=== PATIENT | male | born 1940 | race Caucasian/White ===

== ENCOUNTER 2019-09-24 16:15 | Inpatient (IN) ==
--- NOTE | 2019-09-24 16:36 | Emergency Department Note ---
History of Present Illness General Chief Complaint: Abdominal Pain Stated Complaint: ABD DISCOMFORT - BLOATING Time Seen by Provider: 09/24/19 16:22 History of Present Illness Provider Complaint: abdominal pain Onset (ago): 6 day(s) Pain Consistency: intermittent Location: diffuse Radiation: none Severity: moderate Maximum Pain Intensity: 6 Current Pain Intensity: 6 Quality: + aching and + fullness Relieved By: + nothing Exacerbated By: + eating Associated Symptoms: + nausea, + vomiting, + constipation (And decreased flatulence) and + anorexia; no fever, no dysuria, no hematemesis, no hematochezia, no melena, no hematuria, no chest pain and no breathing difficulty Home Medications Home Medications Medication Instructions Recorded Confirmed Type lisinopril 40 mg PO DAILY 09/24/19 09/24/19 History Allergies Allergy/AdvReac Type Severity Reaction Status Date / Time ibuprofen [From Motrin] Allergy Unknown Hives Verified 09/24/19 18:24 Past Med/Surg History Medical History Hypertension Surgical History No pertinent past surgical history Social History Feels Safe at Home: Yes Smoking Status: Never smoker Hx Alcohol Use: Yes Alcohol type: beer Alcohol type Comment: 4 beers Alcohol Intake Frequency: Daily Review of Systems A total of 10 systems reviewed and were otherwise negative Physical Exam Vital Signs: Vital Signs - 24 hr 09/24/19 16:20 09/24/19 18:13 Temperature 36.4 C L Temperature Source Oral Pulse Rate 75 Pulse Rate [Right Finger] 90 Pulse Rhythm Regular Pulse Strength Normal Respiratory Rate 20 20 Respiratory Effort / Characteristics Non-Labored Sponta neous Respiratory Depth Normal Blood Pressure 143/89 H Blood Pressure [Le ft Arm] 120/66 Blood Pressure Nikki n 107 Blood Pressure Nikki n [Left Arm] 84 Blood Pressure Pos ition Sitting Blood Pressure Pos ition [Left Arm] Sitting Pulse Oximetry 98 90 Oxygen Delivery Me thod Room Air Room Air Sepsis Recent Feve r Within 48 Hours No Sepsis New/Unexpla ined Change in Men holli Status No Sepsis Action Take n by Nursing No Action Required Physical Exam: Physical Exam GENERAL: He is oriented to person, place, and time. He appears well-developed and well-nourished. He does not appear distressed. HENT: Exam performed. - Head: Normocephalic and atraumatic. - Right Ear: External ear normal. No mastoid tenderness. - Left Ear: External ear normal. No mastoid tenderness. - Mouth/Throat: The oropharynx is clear and moist. No trismus in the jaw. No dental abscesses or uvula swelling. No oropharyngeal exudate or tonsillar abscesses. EYES: Conjunctivae and EOM are normal. Pupils are equal, round, and reactive to light. Right eye exhibits no discharge. Left eye exhibits no discharge. No scleral icterus. NECK: Normal range of motion. Neck supple. No JVD present. No spinous process tenderness present. No carotid bruit present. No rigidity. No tracheal deviation and normal range of motion present. No Brudzinski's sign and no Kernig's sign noted. CV: Normal rate, regular rhythm, normal heart sounds and intact distal pulses. There is no peripheral edema. Palpable radial pulses bue. PULM/CHEST: Effort normal and breath sounds normal. No respiratory distress. No stridor. He has no wheezes. He has no rales. - Chest Wall: He exhibits no tenderness. ABD: Abdomen distended diffuse tenderness to palpation. There is no rebound, no guarding, no Roldan's sign and no tenderness at McBurney's point. Rovsig neg ative. MUSC/SKEL: Normal range of motion. There is no peripheral edema, tenderness or deformity. LYMPH: No cervical adenopathy. NEURO: He is alert and oriented to person, place, and time. He has normal strength. No cranial nerve deficit or sensory deficit. Coordination and gait normal. GCS eye subscore is 4. GCS verbal subscore is 5. GCS motor subscore is 6. Cerebellar tests wnl. SKIN: Skin is warm and dry. He is not diaphoretic. PSYCH: He has a normal mood and affect. Behavior is normal. Judgment and thought content normal. Course Course 1630: The patient was evaluated in room A10. A complete history and physical ex am was performed. 0: Patient's creatinine is 2.1. CT switched to CT with oral contrast only. Labs show leukocytosis of 12.73. [employer] [facility] was able to obtain lab results from [facility]. Patient had blood work on March 02, 2019 which showed a creatinine of 0.9. The patient reports no history of kidney problems. 1815: Nursing staff states the patient is not able to tolerate the oral contrast and keeps vomiting. He will be sent over to CT scan to rule out small bowel obstruction at this time. 185: CT shows high-grade small bowel obstruction. General surgery and [facility] hospitalist team consulted. 5: Iwona ESQUIVEL states admit to Dr. Burgos. Discussed with Dr. parekh who requested the patient be admitted to medicine primarily and he be on consult. He recommends NG tube at this point of time. Administered Medications Discontinued Medications Ondansetron HCl (Zofran) Confirm Administered Dose 4 mg .ROUTE .ST-MED ONE Stop: 09/24/19 18:22 Last Admin: 09/24/19 18:22 Dose: 4 mg Documented by: [id number] Ondansetron HCl (Zofran) 4 mg IV NOW STA Stop: 09/24/19 19:08 Last Admin: 09/24/19 19:08 Dose: Not Given Documented by: [id number] Medical Decision Making Laboratory Data Result diagrams: 09/24/19 16:40 09/24/19 16:40 Lab Results 09/24/19 09/24/19 Range/Units 16:40 16:40 WBC 12.73 H (4.8-10.8) K/uL RBC 5.18 (4.7-6.1) M/uL Hgb 17.1 (14.0-18.0) g/dL Hct 49.3 (42-52) % MCV 95.2 (80-100) fL MCH 33.0 (25-34) pg MCHC 34.7 (32-36) g/dL RDW Std Deviation 45.8 (36.4-46.3) fL RDW Coeff of Kathy 13.2 (11.5-14.5) % Plt Count 368 (130-400) K/uL MPV 10.2 (7.4-10.4) fL Immature Gran % (Auto) 2.0 % Neut % (Auto) 66.6 % Lymph % (Auto) 17.2 % [place] % (Auto) 13.4 % Eos % (Auto) 0.3 % Baso % (Auto) 0.5 % Immature Gran # (Auto) 0.26 H (0.00-0.02) K/uL Neut # (Auto) 8.47 H (1.4-6.5) K/uL Lymph # (Auto) 2.19 (1.2-3.4) K/uL [place] # (Auto) 1.70 H (0.11-0.59) K/uL Eos # (Auto) 0.04 (0-0.5) K/uL Baso # (Auto) 0.07 (0-0.2) K/uL Sodium 130 L (136-145) mmol/L Potassium 3.4 L (3.5-5.1) mmol/L Chloride 90 L (98-107) mmol/L Carbon Dioxide 33 H (21-32) mmol/L Anion Gap 7.0 (3-11) BUN 47 H (7-18) mg/dl Creatinine 2.10 H (0.6-1.4) mg/dl Est Cr Clr Drug Dosing 31.3 ml/min Est GFR ( Amer) 33.7 Est GFR (Non-Af Amer) 29.1 BUN/Creatinine Ratio 22.6 H (10-20) Glucose 163 H (70-99) mg/dl Calcium 10.0 (8.5-10.1) mg/dl Total Bilirubin 0.6 (0.2-1) mg/dl Direct Bilirubin 0.2 (0-0.2) mg/dl AST 17 (15-37) U/L ALT 39 (12-78) U/L Alkaline Phosphatase 58 (45-117) U/L Total Protein 8.6 H (6.4-8.2) gm/dl Albumin 3.4 (3.4-5.0) gm/dl Lipase 244 (73-393) U/L Imaging Data Radiologist's Impression: CT abd pelvis oral con only CLINICAL HISTORY: Abdominal distention, generalized abdominal pain. COMPARISON STUDY: No previous studies for comparison. FINDINGS: Patient was scanned following administration of dilute oral contrast. The patient was unable to tolerate the contrast and vomited. Visualized portions lung bases reveal borderline enlarged mediastinal lymph nodes. There are basilar opacities, statistically atelectatic. No hepatic masses are visualized in this noncontrast study. No gallbladder abnormalities are visualized. No splenic abnormalities are visualized. No pancreatic abnormalities are identified. Neither adrenal gland is pathologically enlarged. No renal, ureteral, or bladder calculi are visualized. There is a right renal cyst. There are fluid-filled dilated small bowel loops with multiple air-fluid levels. The colon is of normal caliber. The distal small bowel is of normal caliber. There is a pelvic transition zone. The findings are indicative of a small bowel obstruction. There are scattered colonic diverticula present. There is no evidence of acute diverticulitis. There is no evidence of acute appendicitis. There is no evidence of abdominal aortic dilatation. There is no free air. There is no ascites. There is no pneumatosis. There is no portal venous gas. Mild bladder wall thickening is felt to be secondary to a contracted bladder. There is no pathologic adenopathy. No destructive skeletal lesions are visualized. IMPRESSION: 1. CT findings indicative of a high-grade small bowel obstruction. 2. No evidence of free air. No evidence of pneumatosis. No evidence of portal venous gas. ACT 112: Negative or not required by law. Electronically signed by: Shane Hogan M.D. 09/24/2019 6:42 PM Dictated: 09/24/[id number] Transcribed: 09/24/[id number] [facility] Narrative 1630: The patient was evaluated in room A10. A complete history and physical exam was performed. 1730: Patient's creatinine is 2.1. CT switched to CT with oral contrast only. Labs show leukocytosis of 12.73. [employer] [facility] was able to obtain lab results from [employer]. Patient had blood work on March 02, 2019 which showed a creatinine of 0.9. The patient reports no history of kidney problems. 1815: Nursing staff states the patient is not able to tolerate the oral contrast and keeps vomiting. He will be sent over to CT scan to rule out small bowel obstruction at this time. 1856: CT shows high-grade small bowel obstruction. General surgery and [facility] hospitalist team consulted. 1915: Iwona ESQUIVEL states admit to Dr. Burgos. Discussed with Dr. parekh who requested the patient be admitted to medicine primarily and he be on consult. He recommends NG tube at this point of time. Impression & Plan Small bowel obstruction, MG (acute kidney injury) Discharge Plan Visit Data Chief Complaint: Abdominal Pain Stated Complaint: ABD DISCOMFORT - BLOATING ED Provider: Tim Elizabeth Discharge Problem: Small bowel obstruction, MG (acute kidney injury) Patient Disposition: Admitted As Inpatient Forms Stand Alone Forms: My [facility] Prescriptions Prescriptions: No Action lisinopril 40 mg tablet 40 mg PO DAILY RF: 0 Referrals Referrals: Trev Navarro MD [Primary Care Provider] -
[2019-09-24 16:56] LABS: Hematocrit (blood only) 49.3 % (42-52); Hemoglobin 17.1 g/dL (14.0-18.0); Mean Corpuscular Hgb Conc 34.7 g/dL (32-36); Mean Corpuscular Volume 95.2 fL (80-100); Mean Platelet Volume 10.2 fL (7.4-10.4); Platelet Count 368 K/uL (130-400); RDW Coefficient of Variation 13.2 % (11.5-14.5); RDW Standard Deviation 45.8 fL (36.4-46.3); Red Blood Count 5.18 M/uL (4.7-6.1); White Blood Count 12.73 K/uL (4.8-10.8)
[2019-09-24 17:12] LABS: Albumin Level 3.4 gm/dl (3.4-5.0); BUN Creatinine Ratio 22.6 (10-20); Bilirubin Direct 0.2 mg/dl (0-0.2); Creatinine Clr Calc Pharmacy 31.3 ml/min; Est GFR (African American) 33.7; Est GFR (Non-African American) 29.1; Potassium 3.4 mmol/L (3.5-5.1)
[2019-09-24 17:15] LABS: Bilirubin,Total 0.6 mg/dl (0.2-1); Total Protein 8.6 gm/dl (6.4-8.2)
[2019-09-24 17:18] LABS: Basophils # (auto) 0.07 K/uL (0-0.2); Basophils % (auto) 0.5 %; Eosinophils # (auto) 0.04 K/uL (0-0.5); Eosinophils % (auto) 0.3 %; Immature Granulocytes # (auto) 0.26 K/uL (0.00-0.02); Lymphocytes # (auto) 2.19 K/uL (1.2-3.4); Lymphocytes % (auto) 17.2 %; Monocytes % (auto) 13.4 %; Neutrophils # (auto) 8.47 K/uL (1.4-6.5); Neutrophils % (auto) 66.6 %
[2019-09-24] MEDS ORDERED: ONDANSETRON INJ 2 MG/ML 2 ML VIAL ONE (18:21)
--- NOTE | 2019-09-24 18:43 | CT Scan Report ---
CT abd pelvis oral con only CLINICAL HISTORY: Abdominal distention, generalized abdominal pain. COMPARISON STUDY: No previous studies for comparison. FINDINGS: Patient was scanned following administration of dilute oral contrast. The patient was unable to john ate the contrast and vomited. Visualized portions lung bases reveal borderline enlarged mediastinal lymph nodes. There are basilar opacities, statistically atelectatic. No hepatic masses are visualized in this noncontrast study. No gallbladder abnormalities are visualized. No splenic abnormalities are visualized. No pancreatic abnormalities are identified. Neither adrenal gland is pathologically enlarged. No renal, ureteral, or bladder calculi are visualized. There is a right renal cyst. There are fluid-filled dilated small bowel loops with multiple air-fluid levels. The colon is of norm al caliber. The distal small bowel is of normal caliber. There is a pelvic transition zone. The findi ngs are indicative of a small bowel obstruction. There are scattered colonic diverticula present. The re is no evidence of acute diverticulitis. There is no evidence of acute appendicitis. There is no evidence of abdominal aortic dilatation. There is no free air. There is no ascites. There is no pneumatosis. There is no portal venous gas. Mild bladder wall thickening is felt to be secondary to a contracted bladder. There is no pathologic adenopathy. No destructive skeletal lesions are visualized. IMPRESSION: 1. CT findings indicative of a high-grade small bowel obstruction. 2. No evidence of free air. No evidence of pneumatosis. No evidence of portal venous gas. ACT 112: Negative or not required by law. Electronically signed by: Shane Hogan M.D. 09/24/2019 6:42 PM
[2019-09-24] MEDS ORDERED: ONDANSETRON INJ 2 MG/ML 2 ML VIAL IV STA (19:07)
[2019-09-24] MEDS ORDERED: SODIUM CHLORIDE 0.9% 1000ML 1,000 ML IV SCH (19:30)
--- NOTE | 2019-09-24 19:59 | XRay Report ---
XR chest 1V portable CLINICAL HISTORY: hypoxia COMPARISON STUDY: No previous studies for comparison. FINDINGS: The heart is normal in size. There is aortic tortuosity. There are basilar atelectatic purdy ges. There is an enteric tube which passes into the stomach. There is no failure. There are no signif icant pleural effusions. IMPRESSION: 1. Basilar atelectasis 2. Enteric tube which passes into the stomach. ACT 112: Negative or not required by law. Electronically signed by: Shane Hogan M.D. 09/24/2019 7:58 PM
--- NOTE | 2019-09-24 20:02 | History & Physical Report ---
Date of Service September 24, 2019 Assessment & Plan (1) Small bowel obstruction: This is a 79-year-old male with significant past medical history of HTN, HLD, gout who presents to ED secondary to abdominal pain and bloating x1 week. CT scan abd/pelvis with evidence of high grade SBO. No prior hx of abd surgery, colonoscopy. NG tube placed in ED with 2.5L of bilious drainage. admit to med/surg consult general surgery Dr. Ivey Strict NPO continue intermittent suction IVF NSS + KCL 100cc/hr replace electrolytes IV APAP for pain (2) MG (acute kidney injury): Baseline creatinine 0.9 BUN/creatinine 47 and 2.10 Prerenal azotemia in setting of SBO, poor p.o. intake and emesis Currently received 1L IVF @ 250cc/hr then transition to IVF 100cc/hr NSS + KCL 20meq repeat bmp in a.m. (3) Electrolyte abnormality: Pt with hyponatremia and hypokalemia Check magnesium Replete with IVF plus KCl Repeat BMP in a.m. (4) Atelectasis of both lungs: Pt with bibasilar atelectasis causing hypoxia due to SBO encourage incentive spirometry supplemental O2 at needed Aspiration precautions in setting of NG tube (5) Hypertension: hold lisinopril in setting of MG and NPO monitor BP (6) DVT prophylaxis: SQ Heparin Disposition: admit to med/surg Follow up: PCP Dr. Navarro upon discharge Pt was seen and examined in collaboration with Dr. Burgos, please see addendum History of Present Illness Chief Complaint: Abdominal pain and bloating x 1 week. Primary Care Provider: Trev Navarro MD This is a 79-year-old male with significant past medical history of HTN, HLD, gout who presents to ED secondary to abdominal pain and bloating x1 week. 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 He then drank a few beers that evening and when he went to bed developed severe periumbilical abdominal pain, constant, nonradiating, 8/10, nothing made better or worse. After several hours the pain subsided; however, over the past week he has developed significant increase in bloating. He has been unable to tolerate any solid food since last , nausea, emesis. He vomited oral contrast in the ED and his last episode of emesis was yesterday around 8 PM. He has been able to tolerate liquids in small quantities. He denies any hematemesis. His last bowel movement was yesterday morning and it was normal for him. He denied any melena or hematochezia. He further denies any fever, chills, sweats, lightheadedness, dizziness, chest p ain, shortness of breath, cough, hemoptysis, dysuria, increased urgency or frequency with urination. Due to the abdominal distention and bloating he felt he was having difficulty taking a deep breath but did not overall feel short of breath. He also elicits decreased in urination due to inability to tolerate oral intake. He denies ever having similar symptoms in the past. He only takes lisinopril for blood pressure. His only surgery was tonsils and adenoids. He denies ever having any abdominal surgery, colonoscopy or EGD. He denies any weight loss or night sweats. In ED patient was hemodynamically stable and afebrile. He was mildly hypoxic requiring O2 via NC. Lab work notable for WBC 12.73, H&H 17.1 and 49.3, sodium 130, K3.4, chloride 90, CO2 33, BUN 47, creatinine 2.10, glucose 163, LFTs WNL, lipase 244. CT scan of abdomen pelvis revealed high-grade small bowel obstruction. ED provider spoke with general surgeon who recommended NG tube placement. NG tube was placed and 2.5 L of bilious material was returned. He was then placed on intermittent drainage. Allergies Allergy/AdvReac Type Severity Reaction Status Date / Time ibuprofen [From Motrin] Allergy Unknown Hives Verified 09/24/19 18:24 Home Medications Home Medications Medication Instructions Recorded Confirmed Type lisinopril 40 mg PO DAILY 09/24/19 09/24/19 History Past Med/Surg History Medical History (Updated 09/24/19 @ 20:19 by Amara Hernandez PA-C) Gout HLD (hyperlipidemia) History of hyperlipidemia but does not take cholesterol medication Hypertension Surgical History (Updated 09/24/19 @ 20:01 by Amara Hernandez PA-C) History of tonsillectomy and adenoidectomy Family History Father , 62 Myocardial infarction Coronary heart disease Social History Preferred Language: Khmer Communication Ability: Effective Weather Reporter Required: No Beliefs That Will Affect Care: None marital status: Single Current Living Situation: Alone Other Information That Helps Us Care for You: No Feels Safe at Home: Yes Safety Concerns: Feels Safe At This Time Smoking Status: Former smoker packs per day: 4 ; Do You Dip or Chew Tobacco: No ; Smoking End Date: 1981 ; Number of Years Since Quit: 38 ; Second Hand Exposure: No ; Tobacco Cessation Education Requested by Patient: No Hx Alcohol Use: Yes Alcohol type: beer Alcohol type Comment: 4 beers, last beer 1 week ago Alcohol Intake Frequency: Daily Hx Substance Use: No Review of Systems Review of Systems: All systems reviewed & are unremarkable except as noted in HPI & below Physical Exam Physical Exam: Constitutional: WD/WN, M, vitals as above, NAD, sitting up in bed, pleasant, conversing easily Head: Normocephalic, Atraumatic Eyes: PERRL, conjunctivae normal, anicteric sclerae ENMT: external ear and nose normal, oropharynx normal +NG tube in place ( 2.5L removed so far) Neck: trachea midline, no thyromegaly normal visual inspection Respiratory: normal respiratory effort, lungs clear to auscultation, no wheeze, rales, rhonchi. Normal insp/exp effort, no accessory muscle use Cardiovascular: RRR, 2/6 LOUISA noted RUSB, no edema Vessels: no JVD or carotid bruit Chest: normal inspection of chest Abdomen: absent BS, soft but mildly distended, nontender, no hepatosplenomegaly Musculoskeletal: no cyanosis or clubbing, extremities motor strength 5/5 Skin: no rashes, warm and dry moderate turgor Neurologic: PERRL, EOMI, accommodation nl, no face palsy, no dysarthria CN's II-XI intact bilaterally and moves all extremities Psychiatric: A+Ox3, euthymic affect Lymphatic: no cervical or axillary lymphadenopathy : deferred Results & Data Results & Data ([facility]) Vital Signs (Past 12 Hours) Vital Signs Temp Pulse Pulse Resp BP BP Pulse Ox 09/24/19 18:13 90 20 120/66 90 09/24/19 16:20 36.4 C L 75 20 143/89 H 98 Laboratory Results Short CBC 09/24/19 09/24/19 Range/Units 16:40 16:40 WBC 12.73 H (4.8-10.8) K/uL Hgb 17.1 (14.0-18.0) g/dL Hct 49.3 (42-52) % Plt Count 368 (130-400) K/uL Creatinine 2.10 H (0.6-1.4) mg/dl BMP 09/24/19 16:40 Sodium 130 L Potassium 3.4 L Chloride 90 L Carbon Dioxide 33 H BUN 47 H Creatinine 2.10 H Glucose 163 H Calcium 10.0 Liver Function 09/24/19 Range/Units 16:40 Total Bilirubin 0.6 (0.2-1) mg/dl Direct Bilirubin 0.2 (0-0.2) mg/dl AST 17 (15-37) U/L ALT 39 (12-78) U/L Alkaline Phosphatase 58 (45-117) U/L Albumin 3.4 (3.4-5.0) gm/dl Diagnostic Findings CT abd/pelvis: FINDINGS: Patient was scanned following administration of dilute oral contrast. The patient was unable to tolerate the contrast and vomited. Visualized portions lung bases reveal borderline enlarged mediastinal lymph nodes. There are basilar opacities, statistically atelectatic. No hepatic masses are visualized in this noncontrast study. No gallbladder abnormalities are visualized. No splenic abnormalities are visualized. No pancreatic abnormalities are identified. Neither adrenal gland is pathologically enlarged. No renal, ureteral, or bladder calculi are visualized. There is a right renal cyst. There are fluid-filled dilated small bowel loops with multiple air-fluid levels. The colon is of normal caliber. The distal small bowel is of normal caliber. There is a pelvic transition zone. The findings are indicative of a small bowel obstruction. There are scattered colonic diverticula present. There is no evidence of acute diverticulitis. There is no evidence of acute appendicitis. There is no evidence of abdominal aortic dilatation. There is no free air. There is no ascites. There is no pneumatosis. There is no portal venous gas. Mild bladder wall thickening is felt to be secondary to a contracted bladder. There is no pathologic adenopathy. No destructive skeletal lesions are visualized. IMPRESSION: 1. CT findings indicative of a high-grade small bowel obstruction. 2. No evidence of free air. No evidence of pneumatosis. No evidence of portal venous gas. CXR: IMPRESSION: 1. Basilar atelectasis 2. Enteric tube which passes into the stomach. Medications Administered Sodium Chloride (Nss 1000ml) 1,000 mls @ 250 mls/hr IV .Q4H RAY Stop: 09/24/19 23:29 Last Admin: 09/24/19 19:47 Dose: 250 mls/hr Documented by: [id number] Discontinued Medications Ondansetron HCl (Zofran) Confirm Administered Dose 4 mg .ROUTE .STK-MED ONE Stop: 09/24/19 18:22 Last Admin: 09/24/19 18:22 Dose: 4 mg Documented by: [id number] Ondansetron HCl (Zofran) 4 mg IV NOW STA Stop: 09/24/19 19:08 Last Admin: 09/24/19 19:08 Dose: Not Given Documented by: [id number] Code Status & VTE Plan Code Status Full Code VTE Prophylaxis Plan VTE Prophylaxis will be ordered: Yes Supervising Physician Co-Signing Physician Notes Care coordinated with David Maloney PA-C. Agree with above note. Patient seen and examined. Please refer to her notes for full details. Vital signs reviewed. Physical exam: General exam: Alert and oriented. Not in acute distress. CVS: S1 and S2 heard, regular rate and rhythm, no murmurs. RS: Clear to auscultation, no wheezing or crackles. ABD: Soft, bowel sounds absent, nontender, distended GEOLOGY SCIENTIST: Nonfocal. EXT: No edema, no erythema. Labs: Reviewed. Assessment and plan: 79Y M presets with distended abdomen for last few days. Itially he had pain but currently no pain. Moved bowels yesterday morning. Some what nauseous. No fevers. No chest pain or sob. No cough. SBO no hx of surgeries s/p ng tube npo iv fluids Surgery consulted Electrolyte abnormalities replace will follow labs Other diagnosis and plan of care as per David Maolney PA-C.. Donnie ortega MD.
--- NOTE | 2019-09-24 20:14 | Surgery Consultation ---
Date of Consultation September 24, 2019 Assessment & Plan (1) Small bowel obstruction: pt is a 79 year-old male who presents to Er with one day history abdominal pain, IMP: SBO, unknown cause, Plan, I agrees with conservative treatment first, NPO, IV fluid, NG tube, KUB in am, I also D/W possible surgery if pt is not getting better, pt understood, he agrees with the plan, I answered all questions, will F/U History of Present Illness History of Present Illness History of Present Illness General Chief Complaint: Abdominal Pain Stated Complaint: ABD DISCOMFORT - BLOATING Time Seen by Provider: 09/24/19 16:22 History of Present Illness Provider Complaint: abdominal pain Onset (ago): 6 day(s) Pain Consistency: intermittent Location: diffuse Radiation: none Severity: moderate Maximum Pain Intensity: 6 Current Pain Intensity: 6 Quality: + aching and + fullness Relieved By: + nothing Exacerbated By: + eating Associated Symptoms: + nausea, + vomiting, + constipation (And decreased flatulence) and + anorexia; no fever, no dysuria, no hematemesis, no hematochezia, no melena, no hematuria, no chest pain and no breathing difficulty I ( Anupam Ivey MD ) reviewed pt's H/P , labs, CT scan with pt, pt has no ab dominal pain now, pt feels better after NG tube insertion, pt denies fever, last BM yesterday, passed some gas today, Home Medications Home Medications Medication Instructions Recorded Confirmed Type lisinopril 40 mg PO DAILY 09/24/19 09/24/19 History Allergies Allergy/AdvReac Type Severity Reaction Status Date / Time ibuprofen [From Motrin] Allergy Unknown Hives Verified 09/24/19 18:24 Past Med/Surg History Medical History Hypertension Surgical History No pertinent past surgical history Social History Feels Safe at Home: Yes Smoking Status: Never smoker Hx Alcohol Use: Yes Alcohol type: beer Alcohol type Comment: 4 beers Alcohol Intake Frequency: Daily Review of Systems A total of 10 systems reviewed and were otherwise negative Physical Exam Vital Signs: Vital Signs - 24 hr 09/24/19 16:09/24/19 18:13 Temperature 36.4 C L Temperature Source Oral Pulse Rate 75 Pulse Rate [Right Finger] 90 Pulse Rhythm Regular Pulse Strength Normal Respiratory Rate 20 20 Respiratory Effort / Characteristics Non-Labored Sponta neous Respiratory Depth Normal Blood Pressure 143/89 H Blood Pressure [Le ft Arm] 120/66 Blood Pressure Nikki n 107 Blood Pressure Nikki n [Left Arm] 84 Blood Pressure Pos ition Sitting Blood Pressure Pos ition [Left Arm] Sitting Pulse Oximetry 98 90 Oxygen Delivery Me thod Room Air Room Air Sepsis Recent Feve r Within 48 Hours No Sepsis New/Unexpla ined Change in Men holli Status No Sepsis Action Take n by Nursing No Action Required Allergies Allergy/AdvReac Type Severity Reaction Status Date / Time ibuprofen [From Motrin] Allergy Unknown Hives Verified 09/24/19 18:24 Home Medications Home Medications Medication Instructions Recorded Confirmed Type lisinopril 40 mg PO DAILY 09/24/19 09/24/19 History Patient History Medical History (Updated 09/24/19 @ 20:19 by Amara Hernandez PA-C) Gout HLD (hyperlipidemia) History of hyperlipidemia but does not take cholesterol medication Hypertension Surgical History (Updated 09/24/19 @ 20:01 by Amara Hernandez PA-C) History of tonsillectomy and adenoidectomy Family History Father , 62 Myocardial infarction Coronary heart disease Social History Preferred Language: [place] Communication Ability: Effective marital status: Single Current Living Situation: Alone Feels Safe at Home: Yes Smoking Status: Former smoker packs per day: 4 ; Smoking End Date: 1981 ; Number of Years Since Quit: 38 ; Hx Alcohol Use: Yes Alcohol type: beer Alcohol type Comment: 4 beers, last beer 1 week ago Alcohol Intake Frequency: Daily Review of Systems Review of Systems: All systems reviewed & are unremarkable except as noted in HPI & below Constitutional: as per Subjective / HPI Eyes: as per Subjective / HPI Ear, Nose, Mouth, Throat: as per Subjective / HPI Respiratory: as per Subjective / HPI Cardiovascular: as per Subjective / HPI Gastrointestinal: as per Subjective / HPI Genitourinary: + as per Subjective / HPI Musculoskeletal: as per Subjective / HPI Integumentary: as per Subjective / HPI Neurologic: as per Subjective / HPI Psychiatric: as per Subjective / HPI Endocrine: as per Subjective / HPI Hematologic / Lymphatic: as per Subjective / HPI Allergy / Immunological: as per Subjective / HPI Physical Exam Constitutional: WD/WN, vitals as above well developed and well nourished Eyes: PERRL, conjunctivae normal, anicteric sclerae ENMT: external ear and nose normal, oropharynx normal Neck: trachea midline, no thyromegaly Respiratory: normal respiratory effort, lungs clear to auscultation normal respiratory effort Cardiovascular: RRR, no murmur, no edema Rate/Rhythm: regular rate and regular rhythm Heart Sounds: normal S1 and normal S2 Gastrointestinal (Abdomen): normal bowel sounds, soft, nontender, no hepatosplenomegaly Inspection/Auscultation: abdomen normal to inspection Percussion/Palpation: abdomen soft mild distend, no tenderness, BS + Musculoskeletal: no cyanosis or clubbing, extremities motor strength 5/5 Skin: no rashes, warm and dry Neurologic: patellar DTR's 2+ bilat, sensation intact Psychiatric: Orientation: alert and oriented x 3 Results & Data Vital Signs (Past 12 Hours) Vital Signs Temp Pulse Pulse Resp BP BP Pulse Ox 09/24/19 19:56 90 20 109/73 92 09/24/19 18:13 90 20 120/66 90 09/24/19 16:20 36.4 C L 75 20 143/89 H 98 Laboratory Results Abnormal lab results 09/24/19 09/24/19 Range/Units 16:40 16:40 WBC 12.73 H (4.8-10.8) K/uL Immature Gran # (Auto) 0.26 H (0.00-0.02) K/uL Neut # (Auto) 8.47 H (1.4-6.5) K/uL [place] # (Auto) 1.70 H (0.11-0.59) K/uL Sodium 130 L (136-145) mmol/L Potassium 3.4 L (3.5-5.1) mmol/L Chloride 90 L (98-107) mmol/L Carbon Dioxide 33 H (21-32) mmol/L BUN 47 H (7-18) mg/dl Creatinine 2.10 H (0.6-1.4) mg/dl BUN/Creatinine Ratio 22.6 H (10-20) Glucose 163 H (70-99) mg/dl Total Protein 8.6 H (6.4-8.2) gm/dl Diagnostic Findings CT abd pelvis oral con only CLINICAL HISTORY: Abdominal distention, generalized abdominal pain. COMPARISON STUDY: No previous studies for comparison. FINDINGS: Patient was scanned following administration of dilute oral contrast. The p atient was unable to tolerate the contrast and vomited. Visualized portions lung bases reveal borderline enlarged mediastinal lymph nodes. There are basilar opacities, statistically atelectatic. No hepatic masses are visualized in this noncontrast study. No gallbladder abnormalities are visualized. No splenic abnormalities are visualized. No pancreatic abnormalities are identified. Neither adrenal gland is pathologically enlarged. No renal, ureteral, or bladder calculi are visualized. There is a right renal cyst. There are fluid-filled dilated small bowel loops with multiple air-fluid levels. The colon is of normal caliber. The distal small bowel is of normal caliber. There is a pelvic transition zone. The findings are indicative of a small bowel obstruction. There are scattered colonic diverticula present. There is no evidence of acute diverticulitis. There is no evidence of acute appendicitis. There is no evidence of abdominal aortic dilatation. There is no free air. There is no ascites. There is no pneumatosis. There is no portal venous gas. Mild bladder wall thickening is felt to be secondary to a contracted bladder. There is no pathologic adenopathy. No destructive skeletal lesions are visualized. IMPRESSION: 1. CT findings indicative of a high-grade small bowel obstruction. 2. No evidence of free air. No evidence of pneumatosis. No evidence of portal venous gas.
[2019-09-24] MEDS ORDERED: ONDANSETRON INJ 2 MG/ML 2 ML VIAL IV PRN (20:57)
[2019-09-24] MEDS ORDERED: ACETAMINOPHEN 1,000 MG/100 ML VIAL IV PRN (20:57)
[2019-09-24] MEDS: HEPARIN SOD 5,000 UNIT/0.5 ML VIAL SQ SCH (21:38)
[2019-09-24] MEDS: NSS + 20MEQ KCL 20 MEQ/1,000 ML BAG IV SCH (21:38)
[2019-09-25 05:52] LABS: Hematocrit (blood only) 44.6 % (42-52); Hemoglobin 15.2 g/dL (14.0-18.0); Mean Corpuscular Hemoglobin 32.3 pg (25-34); Mean Corpuscular Hgb Conc 34.1 g/dL (32-36); Mean Corpuscular Volume 94.9 fL (80-100); Mean Platelet Volume 10.3 fL (7.4-10.4); Platelet Count 309 K/uL (130-400); RDW Coefficient of Variation 13.3 % (11.5-14.5); RDW Standard Deviation 46.4 fL (36.4-46.3); White Blood Count 10.91 K/uL (4.8-10.8)
[2019-09-25] MEDS: HEPARIN SOD 5,000 UNIT/0.5 ML VIAL SQ SCH ×2 (06:11→14:48)
[2019-09-25 06:12] LABS: ANC (manual) 7.88 K/uL (1.4-6.5); Eosinophils # (manual) 0.19 K/uL (0-0.5); Eosinophils % (manual) 1.7 %; Lymphocytes # (manual) 0.67 K/uL (1.2-3.4); Lymphocytes % (manual) 6.1 %; Monocytes # (manual) 0.95 K/uL (0.11-0.59); Monocytes % (manual) 8.7 %; Neutrophils # (manual) 7.88 K/uL (1.4-6.5); Neutrophils % (manual) 72.2 %; RBC Morphology Unremarkable; Reactive Lymphocytes # (manual) 1.23 K/uL; Reactive Lymphocytes % (manual) 11.3 %
[2019-09-25 06:22] LABS: BUN Creatinine Ratio 23.6 (10-20); Calcium 9.1 mg/dl (8.5-10.1); Est GFR (African American) 23.2; Magnesium 2.6 mg/dl (1.8-2.4); Potassium 3.7 mmol/L (3.5-5.1)
[2019-09-25] MEDS: NSS + 20MEQ KCL 20 MEQ/1,000 ML BAG IV SCH (06:39)
[2019-09-25 07:00] LABS: Estimated Average Glucose 120 mg/dl; Hemoglobin A1C 5.8 % (4.5-5.6)
[2019-09-25] MEDS ORDERED: CARBOHYDRATES FOR HYPOGLYCEMIA PO PRN (07:15)
[2019-09-25] MEDS ORDERED: SODIUM CHLORIDE 0.9% 1000ML 1,000 ML IV SCH (07:15)
[2019-09-25] MEDS ORDERED: GLUCAGON FOR INJ 1 MG VIAL SQ PRN (07:15)
[2019-09-25] MEDS ORDERED: GLUCOSE 40% GEL 15 GM TUBE PO PRN (07:15)
[2019-09-25] MEDS ORDERED: GLUCOSE 10 TABS/TUBE PO PRN (07:15)
[2019-09-25] MEDS ORDERED: DEXTROSE 50% 50 ML SYRINGE IV PRN (07:15)
--- NOTE | 2019-09-25 07:29 | XRay Report ---
KUB HISTORY: Follow up study in a patient with small bowel obstruction SBO COMPARISON: CT abdomen and pelvis 09/24/2019 FINDINGS: Distal tip of enteric tube terminates the left of midline within the expected location of t he distal gastric body. Persistent small bowel obstruction with dilated small bowel loops measuring u p to 6.3 cm. There is noted within the rectum. No pneumatosis or pneumoperitoneum. Degenerative ibarra es of the spine, pelvis and hips. Multiple phleboliths of the pelvis. No definite urolith. Right jeffery diaphragmatic elevation with cardiomegaly. IMPRESSION: 1. Ongoing high-grade small bowel obstruction. Continued follow-up is needed. 2. Distal tip of enteric tube terminates in the expected location of the distal gastric lumen. 3. No pneumatosis or pneumoperitoneum. ACT 112: Negative or not required by law. The above report was generated using voice recognition software. It may contain grammatical, syntax o r spelling errors. Electronically signed by: Shmuel Gutiérrez M.D. 09/25/2019 7:27 AM
[2019-09-25] MEDS ORDERED: INSULIN ASPART 100 UNITS/ML 3 ML PEN SC SCH ×3 (07:30→16:00)
--- NOTE | 2019-09-25 08:34 | Hospitalist Progress Note ---
Date of Service September 25, 2019 Assessment & Plan (1) Small bowel obstruction: -This is a 79-year-old male with significant past medical history of HTN, HLD, gout (No prior hx of abd surgery, colonoscopy) who presents to ED secondary to abdominal pain and bloating x1 week. -admission CT scan abd/pelvis on 09/24/2019: with evidence of high grade SBO. -was started on NG tube with intermittent suction in the ED and IV fluids and initial consult for general surgery service to assess -09/25/2019 KUB: "Ongoing high-grade small bowel obstruction. Continued follow-up is needed. Distal tip of enteric tube terminates in the expected location of the distal gastric lumen. No pneumatosis or pneumoperitoneum." Patient reports he has been able to make bowel movement on 09/25/2019 and noted that abdomen distension has improved. He is tolerating the NG tube with intermittent suction that is suctioning brown color liquid. Have asked that patient remains to have NG tube for now and await general surgery consult follow up to determine when NG tube should be removed. Patient is tolerating the NG tube and no acute discomforts. abdomen is soft, and nontender to palpation. Because patient is NPO, orders are placed for oral care/hygiene to relieve dry mouth symptoms" (2) MG (acute kidney injury): -Baseline creatinine 0.9 -09/23/2019: BUN/creatinine 47 and 2.10, Prerenal azotemia in setting of SBO, poor p.o. intake and emesis at home -on IV fluids and creatinine is 2.86 on 09/25/2019, continue giving IV fluids and trend renal function labs daily (3) Electrolyte abnormality: -admission labs notable for hyponatremia with serum sodium 130 and serum potassium 3.4 -after normal saline IV fluids with potassium supplements, the serum sodium is 137 and serum potassium is 3.7 by AM of 09/25/2019. To avoid rapid correction of serum sodium and to avoid hypoglycemia from being NPO, fluids are now switched to D5 1/2 normal saline -trend electrolytes (4) Atelectasis of both lungs: -admission CXR: Basilar atelectasis -Aspiration precautions in setting of NG tube (5) Hypertension: -hold lisinopril in setting of MG and NPO -blood pressure stable (6) DVT prophylaxis: -SQ Heparin his outpatient primary care doctor is Dr. Navarro Admission and Anticipated Discharge Date Admission Date: September 24, 2019 Subjective 09/25/2019 KUB: "Ongoing high-grade small bowel obstruction. Continued follow-up is needed. Distal tip of enteric tube terminates in the expected location of the distal gastric lumen. No pneumatosis or pneumoperitoneum." Patient reports he has been able to make bowel movement on 09/25/2019 and noted that abdomen distension has improved. He is tolerating the NG tube with intermittent suction that is suctioning brown color liquid. Have asked that patient remains to have NG tube for now and await general surgery consult follow up to determine when NG tube should be removed. Patient is tolerating the NG tube and no acute discomforts. abdomen is soft, and nontender to palpation. Review of Systems Review of Systems: All systems reviewed & are unremarkable except as noted in HPI & below Physical Exam Constitutional: WD/WN, vitals as above comfortable Eyes: PERRL, conjunctivae normal, anicteric sclerae EOM intact bilaterally ENMT: external ear and nose normal, oropharynx normal Neck: normal visual inspection Respiratory: normal respiratory effort, lungs clear to auscultation Cardiovascular: Rate/Rhythm: regular rate and regular rhythm Gastrointestinal (Abdomen): normal bowel sounds, soft, nontender, no hepatosplenomegaly Musculoskeletal: Head/Neck/Chest: normocephalic and head atraumatic Neurologic: PERRL, EOMI, accommodation nl, no face palsy, no dysarthria CN's II-XI intact bilaterally Psychiatric: A+Ox3, euthymic affect Results & Data Results & Data ([facility]) Vital Signs (Past 12 Hours) Vital Signs Temp Pulse Resp BP Pulse Ox 09/25/19 07:36 36.9 C 74 18 116/74 93 09/24/19 23:18 37.1 C 76 16 99/71 L 93 09/24/19 21:56 37.0 C 81 16 112/69 97 09/24/19 21:25 36.9 C 78 16 101/62 96 09/24/19 20:55 37.0 C 80 16 118/77 97
[2019-09-25] MEDS ORDERED: Nursing to Pharmacy Communication ONE ×2 (08:36→22:05)
[2019-09-25] MEDS: D5W AND 1/2NSS 1,000 ML IV SCH (09:01)
[2019-09-25] MEDS ORDERED: SUCCINYLCHOLINE CHLORIDE 20 MG/ML 10 ML VIAL ONE (10:24)
--- NOTE | 2019-09-25 10:24 | Anesthesiology Consultation ---
Date of Service September 25, 2019 Assessment & Plan (1) Encounter for pre-operative examination: Chart Review Chart Review: Acceptable Risk for Surgery (necessary surgery) and Patient NOT seen in Pre Admission Testing Consults Requested none History Surgery Operation Date: 09/25/19 07:00 Proposed Procedures p Exploratory Laparotomy, Possible Bowel Resection - Anupam Ivey MD Height/Weight Height: 5 ft 6 in Weight: 98.2 kg Allergies Allergy/AdvReac Type Severity Reaction Status Date / Time ibuprofen [From Motrin] Allergy Unknown Hives Verified 09/24/19 18:24 Medications Home Medications Medication Instructions Recorded Confirmed Last Taken lisinopril 40 mg PO DAILY 09/24/19 09/24/19 Unknown Active Medications Generic Name Dose Route Start Last Admin Trade Name Freq PRN Reason Stop Dose Admin Heparin Sodium (Porcine) 5,000 units 09/24/19 22:00 09/25/19 06:11 Heparin Sodium (Porcine) SQ 10/24/19 21:59 5,000 units Q8 RAY Administration Dextrose/Sodium Chloride 1,000 mls @ 80 mls/hr 09/25/19 08:45 09/25/19 09:01 D5w And 1/2nss IV 10/25/19 08:44 80 mls/hr .[id number] RAY Administration NPO Date Last Intake of Fluids: 09/24/19 Date Last Intake of Solids: 09/24/19 Past Medical History Medical History (Updated 09/25/19 @ 10:24 by Ryder Longoria MD) Gout HLD (hyperlipidemia) History of hyperlipidemia but does not take cholesterol medication Hypertension Past Family History Family History Father , 62 Myocardial infarction Coronary heart disease Past Surgical History Surgical History (Updated 09/25/19 @ 10:41 by Ryder Longoria MD) History of tonsillectomy and adenoidectomy Hx of tonsillectomy age 5 Social History Smoking Status: Former smoker Do You Dip or Chew Tobacco: No Smoking End Date: 1981 Hx Alcohol Use: Yes Alcohol type: beer alcohol intake frequency: 3 or more drinks per day Hx Substance Use: No Physical Exam Vital Signs Last Vital Signs Temp 36.9 C 09/25/19 07:36 Pulse 74 09/25/19 07:36 Resp 18 09/25/19 07:36 BP 116/74 09/25/19 07:36 Pulse Ox 93 09/25/19 07:36 Testing Laboratory Results 09/25/19 05:25 09/25/19 05:25 Hemoglobin A1c 5.8 % (4.5-5.6) H 09/25/19 05:25 09/25/19 08:01 POC Glucose 132 H Electrocardiogram Date: 09/25/19 Findings: + NSR @ (82) left axis deviation, possible anterior infarct Chest X-Ray Date: 09/24/19 [place] [phone] XRay Report Patient: AYAAN CINTRONAdmit Date: 09/24/19 MR#: [id number] Acct ID:[id number]: Date: 1940[facility] Zip: [place] [address] Age: 79Location: ED Sex: M Room/Bed: Att Phy:Diagnosis: ABD DISCOMFORT - BLOATING [place] Phy: Trev Navarro MDService Date: 09/24/19 Fam Phy:Interpreting Phy: Shane Hogan MD Admit Phy: Ordering Phy: Amara Hernandez PA-C cc: ~ XR chest 1V portable CLINICAL HISTORY: hypoxia COMPARISON STUDY: No previous studies for comparison. FINDINGS: The heart is normal in size. There is aortic tortuosity. There are basilar atelectatic changes. There is an enteric tube which passes into the stomach. There is no failure. There are no significant pleural effusions. IMPRESSION: 1. Basilar atelectasis 2. Enteric tube which passes into the stomach. ACT 112: Negative or not required by law. Electronically signed by: Shane Hogan M.D. 09/24/2019 7:58 PM Dictated: 09/24/191955 Transcribed: 09/24/191955 Other Testing CT abd pelvis oral con only CLINICAL HISTORY: Abdominal distention, generalized abdominal pain. COMPARISON STUDY: No previous studies for comparison. FINDINGS: Patient was scanned following administration of dilute oral contrast. The patient was unable to tolerate the contrast and vomited. Visualized portions lung bases reveal borderline enlarged mediastinal lymph nodes. There are basilar opacities, statistically atelectatic. No hepatic masses are visualized in this noncontrast study. No gallbladder abnormalities are visualized. No splenic abnormalities are visualized. No pancreatic abnormalities are identified. Neither adrenal gland is pathologically enlarged. No renal, ureteral, or bladder calculi are visualized. There is a right renal cyst. There are fluid-filled dilated small bowel loops with multiple air-fluid levels. The colon is of normal caliber. The distal small bowel is of normal caliber. There is a pelvic transition zone. The findings are indicative of a small bowel obstruction. There are scattered colonic diverticula present. There is no evidence of acute diverticulitis. There is no evidence of acute appendicitis. There is no evidence of abdominal aortic dilatation. There is no free air. There is no ascites. There is no pneumatosis. There is no portal venous gas. Mild bladder wall thickening is felt to be secondary to a contracted bladder. There is no pathologic adenopathy. No destructive skeletal lesions are visualized. IMPRESSION: 1. CT findings indicative of a high-grade small bowel obstruction. 2. No evidence of free air. No evidence of pneumatosis. No evidence of portal venous gas. ACT 112: Negative or not required by law. Electronically signed by: Shane Hogan M.D. 09/24/2019 6:42 PM Dictated: 09/24/191834 Transcribed: 09/24/191834
[2019-09-25] MEDS ORDERED: LIDOCAINE 2% JELLY 5 ML TUBE ONE (10:25)
[2019-09-25] MEDS ORDERED: ROCURONIUM BROMIDE 10 MG/ML 5 ML VIAL ONE (10:25)
[2019-09-25] MEDS ORDERED: ePHEDrine sulfate 50 MG/ML AMP IV PRN (10:28)
[2019-09-25] MEDS ORDERED: PHENYLEPHRINE 100MCG/ML 5ML SYR IV PRN (10:28)
[2019-09-25] MEDS ORDERED: LABETALOL HCL IV 5 MG/ML 20ML IV PRN (10:28)
[2019-09-25] MEDS ORDERED: ATROPINE SULFATE 0.1 MG/ML 10ML SYR IV PRN (10:28)
[2019-09-25] MEDS ORDERED: HYDROmorphone INJ 1 MG/ML SYRINGE IV PRN (10:28)
[2019-09-25] MEDS ORDERED: ONDANSETRON INJ 2 MG/ML 2 ML VIAL IV PRN (10:28)
--- NOTE | 2019-09-25 10:33 | Surgery Progress Note ---
Date of Service pt has no BM yet, passe a little gas, some abdominal pain with distend, NG tube 1880ml, KUB (09/25/2019) high degree SBO, September 25, 2019 Assessment & Plan (1) Small bowel obstruction: pt is a 79 year-old male who presents to Er with one day history abdominal pain, IMP: SBO, unknown cause, Plan, I agrees with conservative treatment first, NPO, IV fluid, NG tube, KUB in am, I also D/W possible surgery if pt is not getting better, pt understood, he agrees with the plan, I answered all questions, will F/U 09/25/2019 10 : 35AM, base on pt has no abdominal surgery history, most likely internal hernia, pt is still has high degree SBO, I recommend to do exploratory laparotomy possible bowel resection or stoma, D/W benefits, risks and alternatives of the surgery, the risks - infection, bleeding, injury bowel, OR, DVT, stroke, SBO recurrence, incisional hernia, kelvin th, pt understood, he agrees with the surgery, I answered all questions, Supervising Physician Co-Signing Physician Notes Care coordinated with David Maloney PA-C. Agree with above note. Patient seen and examined. Please refer to her notes for full details. Vital signs reviewed. Physical exam: General exam: Alert and oriented. Not in acute distress. CVS: S1 and S2 heard, regular rate and rhythm, no murmurs. RS: Clear to auscultation, no wheezing or crackles. ABD: Soft, bowel sounds absent, nontender, distended RADIO STATION MANAGER: Nonfocal. EXT: No edema, no erythema. Labs: Reviewed. Assessment and plan: 79Y M presets with distended abdomen for last few days. Itially he had pain but currently no pain. Moved bowels yesterday morning. Some what nauseous. No fevers. No chest pain or sob. No cough. SBO no hx of surgeries s/p ng tube npo iv fluids Surgery consulted Electrolyte abnormalities replace will follow labs Other diagnosis and plan of care as per David Maloney PA-C.. Donnie ortega MD. Review of Systems Constitutional: as per Subjective / HPI Eyes: as per Subjective / HPI Ear, Nose, Mouth, Throat: as per Subjective / HPI Respiratory: as per Subjective / HPI Cardiovascular: as per Subjective / HPI Gastrointestinal: as per Subjective / HPI Genitourinary: + as per Subjective / HPI Musculoskeletal: as per Subjective / HPI Integumentary: as per Subjective / HPI Neurologic: as per Subjective / HPI Psychiatric: as per Subjective / HPI Endocrine: as per Subjective / HPI Hematologic / Lymphatic: as per Subjective / HPI Allergy / Immunological: as per Subjective / HPI Physical Exam Constitutional: WD/WN, vitals as above well developed and well nourished Eyes: PERRL, conjunctivae normal, anicteric sclerae ENMT: external ear and nose normal, oropharynx normal Neck: trachea midline, no thyromegaly Respiratory: normal respiratory effort, lungs clear to auscultation normal respiratory effort Cardiovascular: RRR, no murmur, no edema Rate/Rhythm: regular rate and regular rhythm Heart Sounds: normal S1 and normal S2 Gastrointestinal (Abdomen): normal bowel sounds, soft, nontender, no hepatos plenomegaly Inspection/Auscultation: + abdomen distended Percussion/Palpation: abdomen soft mild distend, soft, mild tenderness at lower abdomen, no rebound pain, BS + Musculoskeletal: no cyanosis or clubbing, extremities motor strength 5/5 Skin: no rashes, warm and dry Neurologic: patellar DTR's 2+ bilat, sensation intact Psychiatric: Orientation: alert and oriented x 3 Results & Data Vital Signs (Past 12 Hours) Vital Signs Temp Pulse Resp BP Pulse Ox 09/25/19 07:36 36.9 C 74 18 116/74 93 09/24/19 23:18 37.1 C 76 16 99/71 L 93 Laboratory Results Abnormal lab results 09/24/19 09/24/19 09/24/19 Range/Units 16:40 16:40 16:40 WBC 12.73 H (4.8-10.8) K/uL RDW Std Deviation (36.4-46.3) fL Immature Gran # (Auto) 0.26 H (0.00-0.02) K/uL Neut # (Auto) 8.47 H (1.4-6.5) K/uL Sherman # (Auto) 1.70 H (0.11-0.59) K/uL Neutrophils # (Manual) (1.4-6.5) K/uL Total Absolute Neuts (1.4-6.5) K/uL Lymphocytes # (Manual) (1.2-3.4) K/uL Monocytes # (Manual) (0.11-0.59) K/uL Sodium 130 L (136-145) mmol/L Potassium 3.4 L (3.5-5.1) mmol/L Chloride 90 L (98-107) mmol/L Carbon Dioxide 33 H (21-32) mmol/L BUN 47 H (7-18) mg/dl Creatinine 2.10 H (0.6-1.4) mg/dl BUN/Creatinine Ratio 22.6 H (10-20) Glucose 163 H (70-99) mg/dl POC Glucose (70-99) mg/dl Hemoglobin A1c (4.5-5.6) % Magnesium 2.5 H (1.8-2.4) mg/dl Total Protein 8.6 H (6.4-8.2) gm/dl 09/25/19 09/25/19 09/25/19 Range/Units 05:25 05:25 05:25 WBC 10.91 H (4.8-10.8) K/uL RDW Std Deviation 46.4 H (36.4-46.3) fL Immature Gran # (Auto) (0.00-0.02) K/uL Neut # (Auto) (1.4-6.5) K/uL Sherman # (Auto) (0.11-0.59) K/uL Neutrophils # (Manual) 7.88 H (1.4-6.5) K/uL Total Absolute Neuts 7.88 H (1.4-6.5) K/uL Lymphocytes # (Manual) 0.67 L (1.2-3.4) K/uL Monocytes # (Manual) 0.95 H (0.11-0.59) K/uL Sodium (136-145) mmol/L Potassium (3.5-5.1) mmol/L Chloride 91 L (98-107) mmol/L Carbon Dioxide 39 H (21-32) mmol/L BUN 68 H (7-18) mg/dl Creatinine 2.86 H D (0.6-1.4) mg/dl BUN/Creatinine Ratio 23.6 H (10-20) Glucose 139 H (70-99) mg/dl POC Glucose (70-99) mg/dl Hemoglobin A1c 5.8 H (4.5-5.6) % Magnesium 2.6 H (1.8-2.4) mg/dl Total Protein (6.4-8.2) gm/dl 09/25/19 Range/Units 08:01 WBC (4.8-10.8) K/uL RDW Std Deviation (36.4-46.3) fL Immature Gran # (Auto) (0.00-0.02) K/uL Neut # (Auto) (1.4-6.5) K/uL Sherman # (Auto) (0.11-0.59) K/uL Neutrophils # (Manual) (1.4-6.5) K/uL Total Absolute Neuts (1.4-6.5) K/uL Lymphocytes # (Manual) (1.2-3.4) K/uL Monocytes # (Manual) (0.11-0.59) K/uL Sodium (136-145) mmol/L Potassium (3.5-5.1) mmol/L Chloride (98-107) mmol/L Carbon Dioxide (21-32) mmol/L BUN (7-18) mg/dl Creatinine (0.6-1.4) mg/dl BUN/Creatinine Ratio (10-20) Glucose (70-99) mg/dl POC Glucose 132 H (70-99) mg/dl Hemoglobin A1c (4.5-5.6) % Magnesium (1.8-2.4) mg/dl Total Protein (6.4-8.2) gm/dl Diagnostic Findings KUB HISTORY: Follow up study in a patient with small bowel obstruction SBO COMPARISON: CT abdomen and pelvis 09/24/2019 FINDINGS: Distal tip of enteric tube terminates the left of midline within the expected location of the distal gastric body. Persistent small bowel obstruction with dilated small bowel loops measuring up to 6.3 cm. There is noted within the rectum. No pneumatosis or pneumoperitoneum. Degenerative changes of the spine, pelvis and hips. Multiple phleboliths of the pelvis. No definite urolith. Right hemidiaphragmatic elevation with cardiomegaly. IMPRESSION: 1. Ongoing high-grade small bowel obstruction. Continued follow-up is needed. 2. Distal tip of enteric tube terminates in the expected location of the distal gastric lumen. 3. No pneumatosis or pneumoperitoneum.
[2019-09-25] MEDS ORDERED: fentaNYL citrate 100 MCG/2 ML VIAL ONE ×2 (10:34→13:58)
[2019-09-25] MEDS ORDERED: LIDOCAINE HCL 2% 2 ML VIAL/AMP(20MG/ML) INFIL ONE (10:38)
[2019-09-25] MEDS ORDERED: PROPOFOL IV EMULSION 10 MG/ML 20 ML VIAL IV ONE (10:38)
[2019-09-25] MEDS ORDERED: CEFAZOLIN 2000MG 2,000 MG/15 ML SYR IV ONE (10:40)
--- NOTE | 2019-09-25 10:40 | History & Physical Bridge Note ---
Date of Service September 25, 2019 History & Physical Bridge Note I have examined the patient, reviewed the History & Physical and in the interval since the performance of the History & Physical I have noted the following changes of clinical significance: no changes noted Supervising Physician Co-Signing Physician Notes Care coordinated with David Maloney PA-C. Agree with above note. Patient seen and examined. Please refer to her notes for full details. Vital signs reviewed. Physical exam: General exam: Alert and oriented. Not in acute distress. CVS: S1 and S2 heard, regular rate and rhythm, no murmurs. RS: Clear to auscultation, no wheezing or crackles. ABD: Soft, bowel sounds absent, nontender, distended PRESS WORKER HELPER: Nonfocal. EXT: No edema, no erythema. Labs: Reviewed. Assessment and plan: 79Y M presets with distended abdomen for last few days. Itially he had pain but currently no pain. Moved bowels yesterday morning. Some what nauseous. No fevers. No chest pain or sob. No cough. SBO no hx of surgeries s/p ng tube npo iv fluids Surgery consulted Electrolyte abnormalities replace will follow labs Other diagnosis and plan of care as per David Maloney PA-C.. Donnie ortega MD.
[2019-09-25] MEDS ORDERED: BACITRACIN OINT 15 GM TUBE ONE (10:50)
[2019-09-25] MEDS ORDERED: LIDOCAINE HCL 1% 20 ML VIAL ONE (10:50)
[2019-09-25] MEDS ORDERED: BUPIVACAINE 0.5 % 5 MG/1 ML MPF 30ML VIAL ONE (10:50)
[2019-09-25] MEDS ORDERED: CEFAZOLIN 2,000 MG/15 ML IV PUSH IV ONE (10:51)
[2019-09-25 10:57] LABS: Appearance Urine Cloudy (Clear); Bacteria Urine Automated Negative (Negative); Bilirubin Urine Negative (Negative); Blood Urine Negative (Negative); Color Urine Dark Yellow; Epithelial Cell Urine Auto 20-30 /lpf (0-5); Glucose Urine UA Negative (Negative); Ketones Urine Negative (Negative); Leukocyte Esterase Urine Negative (Negative); Nitrite Urine Negative (Negative); Protein Urine 1+ (Negative); RBC Urine Automated 0-4 /hpf (0-4); Specific Gravity Urine 1.021 (1.000-1.030); Urobilinogen Urine Negative (Negative)
[2019-09-25] MEDS ORDERED: PHENYLEPHRINE HCL 10 MG/ML VIAL ONE (11:30)
[2019-09-25] MEDS ORDERED: ePHEDrine sulfate 50 MG/ML AMP ONE (11:37)
[2019-09-25] MEDS ORDERED: ePHEDrine sulfate 50 MG/ML SYR ONE ×2 (12:20→12:54)
[2019-09-25] MEDS ORDERED: NEOSTIGMINE METHYLSULFATE 5 MG/5 ML SYR ONE (12:20)
--- NOTE | 2019-09-25 13:09 | Post Operative Brief Note ---
Immediate Post Op Note v1 Date of Surgery September 25, 2019 Pre & Post Diagnosis Operation Date: 09/25/19 07:00 Pre-Op Diagnosis: SBO Post-Op Diagnosis: SBO I identified the patient and participated in the time-out.: Yes Procedure Operation Date: 09/25/19 07:00 Actual Procedures p Exploratory Laparotomy, Appendectomy, Drainage of Abscess, and Lysis of Adhesions - Anupam Ivey MD Surgeon Anupam Ivey MD Golf Superintendent ADELAIDE Mcintyre Estimated Blood Loss 10 Findings Consistent with Post-Op Diagnosis SBO, cause by adhesion, acute appendicitis, with perforation abscess, Fluids 1500ml Specimens appendix Drains Mejia Catheter and Other (NG tube. Patient was in preop with NG tube.) Anesthesia Type General Complications none Disposition Accompanied Patient To Recovery: Yes Disposition: Recovery Room Overlapping Procedure I was immediately available: during the entire case.
[2019-09-25] MEDS: fentaNYL citrate 100 MCG/2 ML VIAL IV PRN ×2 (14:01→14:06)
--- NOTE | 2019-09-25 14:38 | Anesthesiology Progress Note ---
Date of Service September 25, 2019 Anesthesia Post Procedure Vital Signs Vital Signs: Temp Pulse Pulse Pulse Resp BP BP 09/25/19 14:25 87 16 09/25/19 14:15 36.2 C L 90 14 09/25/19 14:05 86 14 09/25/19 13:55 89 12 09/25/19 13:47 36.6 C 86 16 09/25/19 10:38 36.6 C 81 16 131/70 09/25/19 07:36 36.9 C 74 18 116/74 09/24/19 23:18 37.1 C 76 16 99/71 L 09/24/19 21:56 37.0 C 81 16 112/69 09/24/19 21:25 36.9 C 78 16 101/62 09/24/19 20:55 37.0 C 80 16 118/77 09/24/19 19:56 90 20 109/73 09/24/19 18:13 90 20 120/66 09/24/19 16:20 36.4 C L 75 20 143/89 H BP Pulse Ox 09/25/19 14:25 113/72 95 09/25/19 14:15 113/67 95 09/25/19 14:05 113/75 93 09/25/19 13:55 98/73 L 91 09/25/19 13:47 94/62 L 94 09/25/19 10:38 98 09/25/19 07:36 93 09/24/19 23:18 93 09/24/19 21:56 97 09/24/19 21:25 96 09/24/19 20:55 97 09/24/19 19:56 92 09/24/19 18:13 90 09/24/19 16:20 98 Pain Intensity Lower Abdomen: Pain Intensity: 4 Transfer of Care Handoff Completed per policy Notes Mental Status: alert / awake / arousable Patient Amnestic to Procedure: Yes Nausea / Vomiting: adequately controlled Pain: adequately controlled Airway Patency, RR, SpO2: stable & adequate BP & HR: stable & adequate Hydration State: stable & adequate Anesthetic Complications: no major complications apparent and Pt Satisfied with anesthetic care Notes: The patient is doing well. He is awake and comfortable. His had a very brief run of SVT but has been in normal sinus rhythm. His vital signs are stable.
[2019-09-25] MEDS ORDERED: MoRPHine SULFATE 2 MG/ML CARP IV PRN (14:42)
[2019-09-25] MEDS ORDERED: MoRPHine SULFATE 4 MG/ML 1 ML CARP\\VIAL IV PRN (14:42)
[2019-09-25] MEDS: MoRPHine SULFATE 2 MG/ML CARP IV PRN (15:35)
--- NOTE | 2019-09-25 15:37 | Operative Report (OR) ---
DATE OF OPERATION: 09/25/2019 PREOPERATIVE DIAGNOSIS: Small-bowel obstruction. POSTOPERATIVE DIAGNOSES: Acute appendicitis with perforation and abscess with adhesion causing small-bowel obstruction. OPERATION: Exploratory laparotomy, appendectomy, drainage of the abscess, lysis of adhesion. SURGEON: Anupam Ivey MD. SPOT WELDER: Mala Matthews PA-C. ANESTHESIA: General. ESTIMATED BLOOD LOSS: About 10 mL. FINDINGS: Acute appendicitis with perforation and abscess, adhesion caused the small-bowel obstruction. COMPLICATIONS: None. INDICATIONS FOR THE PROCEDURE: This is a 79-year-old gentleman who was admitted to the hospital for small-bowel obstruction. The patient had no surgical history in the past and we did a conservative treatment; however, the patient still not passed stool and this morning, we repeated a KUB, still with significant high-degree small-bowel obstruction. I recommended to do exploratory laparotomy, possible bowel resection, possible stoma. I did talk to the patient about the benefits, risks, alternate procedure. I indicated the risks may include but not limited to such as bleeding, infection, injury to the bowel, myocardial infarction, DVT, stroke, even . The patient understands. He signed informed consent and I answered all questions. DETAILS OF PROCEDURE: We brought the patient to the OR, put the patient in the supine position. The patient received SCD on bilateral legs to prevent DVT. Also, patient received 2 grams of Ancef IV for prophylactic antibiotic. The patient received general anesthesia without difficulty. The abdomen was prepped and draped in routine sterile fashion. After timeout, I made a small midline incision about 12 cm long, got into the abdomen without difficulty and we found the patient had a significant small-bowel obstruction, small-bowel dilatation around 4 cm and then we followed the dilatation of small bowel, found the patient had a small-bowel transection, dilatation around the right lower quadrant. Then, we found the patient had cecum near the appendix abscess with acute appendicitis with perforation of appendix. At this moment, also most of the appendix already gone based on the inflammation and just left a small piece of appendix of the tip. Once we released the adhesion, the small-bowel obstruction is gone and we found also the distal small bowel was starting to open. At this moment, we used the Endo-ELISEO staple for transection on the remainder of the appendix, rechecked the staple line, intact and again based on the patient had a perforated appendix with abscess, most of the appendix already gone leaving one tip of the appendix, very small but we removed the tip of the appendix and no leak from the cecum area. The cecum area of the appendix site already healed. We did send wound culture from the abscess. The abscess size is about 3 x 4 cm. Once we drained the pus, we suctioned the pus, now the small-bowel obstruction released and we removed the appendix, hemostasis was obtained. Then, we closed the abdominal fascial layer by using #1 PDS continuous running, closed subcutaneous layer by using 2-0 Vicryl continuous running, closed skin by using staple. Then we put the dressing on. The patient tolerated the procedure well. All instrument, needle and sponge count were correct x2 at the end of the case. The patient was transferred to recovery room in stable condition. After the procedure, I did talk to the patient about the OR finding and the procedure we did. Also, I informed the patient that the on-call surgeon will cover this weekend. The patient understands. I attest to the content of the Intraoperative Record and any orders documented therein. Any exception s are noted below.
[2019-09-25 15:44] LABS: BUN Creatinine Ratio 28.2 (10-20); Calcium 8.2 mg/dl (8.5-10.1); Creatinine Clr Calc Pharmacy 26.1 ml/min; Est GFR (Non-African American) 23.3; Potassium 3.4 mmol/L (3.5-5.1)
[2019-09-25] MEDS: metroNIDAZOLE 500 MG/100 ML BAG IV SCH (16:51)
[2019-09-25] MEDS: ACETAMINOPHEN 1,000 MG/100 ML VIAL IV PRN (16:53)
[2019-09-25] MEDS ORDERED: D5W AND 1/2NSS 1,000 ML IV SCH (17:00)
--- NOTE | 2019-09-25 17:41 | Electrocardiogram Report ---
Test Reason : Blood Pressure : / mmHG Vent. Rate : 082 BPM Atrial Rate : 082 BPM P-R Int : 150 ms QRS Dur : 086 ms QT Int : 396 ms P-R-T Axes : 043 -46 044 degrees QTc Int : 462 ms Normal sinus rhythm Left axis deviation Possible Anterior infarct , age undetermined Abnormal ECG No previous ECGs available Confirmed by Timbo Hernandez ([id number]) on 09/25/2019 5:40:47 PM Referred By: REFERRED SELF Confirmed By:Timbo Hernandez
[2019-09-25] MEDS: INSULIN ASPART 100 UNITS/ML 3 ML PEN SC SCH (18:48)
[2019-09-26] MEDS: INSULIN ASPART 100 UNITS/ML 3 ML PEN SC SCH ×3 (00:10→17:53)
[2019-09-26] MEDS: D5W AND 1/2NSS 1,000 ML IV SCH ×2 (00:20→14:10)
[2019-09-26] MEDS: metroNIDAZOLE 500 MG/100 ML BAG IV SCH ×4 (00:20→23:21)
[2019-09-26] MEDS: ACETAMINOPHEN 1,000 MG/100 ML VIAL IV PRN (03:21)
[2019-09-26 05:07] LABS: Basophils # (auto) 0.04 K/uL (0-0.2); Basophils % (auto) 0.3 %; Eosinophils # (auto) 0.04 K/uL (0-0.5); Eosinophils % (auto) 0.3 %; Hematocrit (blood only) 42.7 % (42-52); Hemoglobin 14.1 g/dL (14.0-18.0); Immature Granulocytes # (auto) 0.12 K/uL (0.00-0.02); Immature Granulocytes % (auto) 0.9 %; Lymphocytes # (auto) 1.46 K/uL (1.2-3.4); Lymphocytes % (auto) 11.5 %; Mean Corpuscular Volume 96.8 fL (80-100); Mean Platelet Volume 10.2 fL (7.4-10.4); Monocytes # (auto) 1.11 K/uL (0.11-0.59); Monocytes % (auto) 8.7 %; Neutrophils # (auto) 9.95 K/uL (1.4-6.5); Neutrophils % (auto) 78.3 %; Platelet Count 293 K/uL (130-400); RDW Coefficient of Variation 13.8 % (11.5-14.5); RDW Standard Deviation 49.5 fL (36.4-46.3); Red Blood Count 4.41 M/uL (4.7-6.1); White Blood Count 12.72 K/uL (4.8-10.8)
[2019-09-26 05:38] LABS: Albumin Level 2.5 gm/dl (3.4-5.0); Calcium 7.7 mg/dl (8.5-10.1); Creatinine Clr Calc Pharmacy 26.1 ml/min; Est GFR (Non-African American) 23.3; Magnesium 2.6 mg/dl (1.8-2.4); Potassium 3.9 mmol/L (3.5-5.1)
[2019-09-26 05:44] LABS: Albumin Globulin Ratio 0.7 (0.9-2); Bilirubin,Total 0.7 mg/dl (0.2-1); Globulin 3.7 gm/dl (2.5-4.0); Phosphorus 5.4 mg/dl (2.5-4.9); Total Protein 6.2 gm/dl (6.4-8.2)
--- NOTE | 2019-09-26 06:56 | Surgery Progress Note ---
Date of Service September 26, 2019 Assessment & Plan (1) Perforated appendix: awake, alert- walked yesterday NG- mod output- bilious abd- distended, decreased bs- incision intact Leave NG today, d/c tovar, cont IV atbx ambulate Results & Data Vital Signs (Past 12 Hours) Vital Signs Temp Pulse Resp BP Pulse Ox 09/26/19 03:36 36.6 C 76 18 111/70 91 09/25/19 23:06 36.5 C 78 16 103/69 93 09/25/19 21:13 89 L PG Care Time/CCT Total # of Minutes Spent Total Time Spent with Patient: Total time spent is greater than 50% in coordination of care (as documented) at patient's floor/unit and/or counseling patient: Coding Level of Care Code None Diagnoses Perforated appendix K35.32
--- NOTE | 2019-09-26 07:42 | Hospitalist Progress Note ---
Date of Service September 26, 2019 Assessment & Plan (1) Small bowel obstruction: Acute appendicitis with perforation and abscess with adhesion causing Small bowel obstruction (SBO) status post Exploratory Laparotomy, Appendectomy, Drainage of Abscess, and Lysis of Adhesion on 09/25/2019 -This is a 79-year-old male with significant past medical history of HTN, HLD, gout (No prior hx of abd surgery, colonoscopy) who presents to ED secondary to abdominal pain and bloating x1 week. -admission CT scan abd/pelvis on 09/24/2019: with evidence of high grade SBO. was started on NG tube with intermittent suction in the ED and IV fluids and initial consult for general surgery service to assess -s/p Exploratory laparotomy, appendectomy, drainage of the abscess, lysis of adhesion on 09/25/2019. as per general surgeon report that the cause of the small bowel obstruction was from Acute appendicitis with perforation and abscess with adhesion. patient had received preop cefazolin, general surgeon ordered post-op cefoxitin, hospitalist ordered blood cultures to be done before post-op antibiotics to be given and also adding metronidazole 500 mg IV q8 hours for additional antibiotic coverage -09/26/2019 continue antibiotics, tovar to be removed, NG tube to remain in place, patient encouraged to ambulate, general surgery team continues to follow the patient (2) MG (acute kidney injury): -Baseline creatinine is reported to be 0.9 -09/23/2019: BUN/creatinine 47 and 2.10, Prerenal azotemia in setting of SBO, poor p.o. intake and emesis at home -given IV fluids -creatinine is 2.52 on 09/26/2019, continue giving IV fluids and trend renal function labs daily (3) Electrolyte abnormality: -admission labs notable for hyponatremia with serum sodium 130 and serum potassium 3.4 -after normal saline IV fluids with potassium supplements, the serum sodium is 137 and serum potassium is 3.7 by AM of 09/25/2019. To avoid rapid correction of serum sodium and to avoid hypoglycemia from being NPO, fluids were switched to D5 1/2 normal saline on 09/25/2019 -serum sodium is 134 on 09/26/2019, continue 5 1/2 normal saline (4) Atelectasis of both lungs: admission CXR: Basilar atelectasis -Aspiration precautions in setting of NG tube (5) Hypertension: -hold lisinopril in setting of MG and NPO -blood pressure stable (6) DVT prophylaxis: -SQ Heparin PT/OT evaluations, case management consult his outpatient primary care doctor is Dr. Navarro Admission and Anticipated Discharge Date Admission Date: September 24, 2019 Subjective Patient seen and examined in AM. NG tube remains in place and suctioning dark brown fluid. has nasal cannula. no respiratory distress. no subjective acute shortness of breath. no chest pain. no vomiting. patient has abdominal binder. no acute abdomen pain. no bowel movement since yesterday surgery. patient encouraged to ambulate today. Review of Systems Review of Systems: All systems reviewed & are unremarkable except as noted in HPI & below Physical Exam Constitutional: WD/WN, vitals as above comfortable Eyes: PERRL, conjunctivae normal, anicteric sclerae EOM intact bilaterally ENMT: external ear and nose normal, oropharynx normal (NG tube, nasal cannula oxygen) Neck: normal visual inspection Respiratory: normal respiratory effort, lungs clear to auscultation Cardiovascular: Rate/Rhythm: regular rate and regular rhythm Gastrointestinal (Abdomen): abdomen binder in place Musculoskeletal: Head/Neck/Chest: normocephalic and head atraumatic Neurologic: PERRL, EOMI, accommodation nl, no face palsy, no dysarthria CN's II-XI intact bilaterally Psychiatric: A+Ox3, euthymic affect Results & Data Results & Data ([facility]) Vital Signs (Past 12 Hours) Vital Signs Temp Pulse Pulse Resp BP BP Pulse Ox 09/26/19 07:21 36.5 C 79 18 107/69 92 09/26/19 03:36 36.6 C 76 18 111/70 91 09/25/19 23:06 36.5 C 78 16 103/69 93 09/25/19 21:13 89 L
[2019-09-26] MEDS: ENOXAPARIN INJ 30 MG/0.3 ML SYR SQ SCH (08:29)
[2019-09-26] MEDS ORDERED: lisinopriL 40 MG TAB PO SCH (09:00)
--- NOTE | 2019-09-26 09:24 | Anesthesiology Progress Note ---
Date of Service September 26, 2019 Anesthesia Post Procedure Vital Signs Vital Signs: Temp Pulse Pulse Resp BP BP Pulse Ox 09/26/19 08:28 91 09/26/19 08:27 91 09/26/19 08:12 85 L 09/26/19 07:21 36.5 C 79 18 107/69 92 09/26/19 03:36 36.6 C 76 18 111/70 91 09/25/19 23:06 36.5 C 78 16 103/69 93 09/25/19 21:13 89 L 09/25/19 17:46 36.3 C L 83 18 96/65 L 96 09/25/19 16:40 36.9 C 88 18 101/69 95 09/25/19 15:38 36.7 C 88 16 115/73 92 09/25/19 15:11 36.8 C 87 18 101/67 94 09/25/19 14:48 37.0 C 89 18 105/69 92 09/25/19 14:35 85 16 122/72 95 09/25/19 14:25 87 16 113/72 95 09/25/19 14:15 36.2 C L 90 14 113/67 95 09/25/19 14:05 86 14 113/75 93 09/25/19 13:55 89 12 98/73 L 91 09/25/19 13:47 36.6 C 86 16 94/62 L 94 09/25/19 10:38 36.6 C 81 16 131/70 98 Pain Intensity Lower Abdomen: Pain Intensity: 4 Notes Mental Status: alert / awake / arousable and participated in evaluation Nausea / Vomiting: adequately controlled Pain: adequately controlled Airway Patency, RR, SpO2: stable & adequate BP & HR: stable & adequate Hydration State: stable & adequate Anesthetic Complications: no major complications apparent and Pt Satisfied with anesthetic care
[2019-09-26] MEDS ORDERED: CALCIUM GLUCONATE 10% 10 ML VIAL IV STA (14:41)
[2019-09-26] MEDS ORDERED: CALCIUM GLUCONATE 10% 1,000 MG in SODIUM CHLORIDE 0.9% 50 ML IV STA (14:45)
[2019-09-26] MEDS: MoRPHine SULFATE 2 MG/ML CARP IV PRN (15:31)
[2019-09-27] MEDS: INSULIN ASPART 100 UNITS/ML 3 ML PEN SC SCH ×3 (00:45→16:08)
[2019-09-27] MEDS: D5W AND 1/2NSS 1,000 ML IV SCH ×2 (02:05→15:33)
[2019-09-27 05:04] LABS: Basophils # (auto) 0.03 K/uL (0-0.2); Basophils % (auto) 0.2 %; Eosinophils # (auto) 0.19 K/uL (0-0.5); Eosinophils % (auto) 1.2 %; Hemoglobin 14.1 g/dL (14.0-18.0); Immature Granulocytes # (auto) 0.14 K/uL (0.00-0.02); Immature Granulocytes % (auto) 0.9 %; Lymphocytes # (auto) 1.84 K/uL (1.2-3.4); Lymphocytes % (auto) 11.8 %; Mean Corpuscular Hemoglobin 32.6 pg (25-34); Mean Corpuscular Hgb Conc 32.8 g/dL (32-36); Mean Corpuscular Volume 99.3 fL (80-100); Mean Platelet Volume 9.9 fL (7.4-10.4); Monocytes # (auto) 1.21 K/uL (0.11-0.59); Monocytes % (auto) 7.8 %; Neutrophils # (auto) 12.12 K/uL (1.4-6.5); Neutrophils % (auto) 78.1 %; Platelet Count 287 K/uL (130-400); RDW Coefficient of Variation 13.6 % (11.5-14.5); RDW Standard Deviation 49.7 fL (36.4-46.3); Red Blood Count 4.33 M/uL (4.7-6.1); White Blood Count 15.53 K/uL (4.8-10.8)
[2019-09-27 05:58] LABS: BUN Creatinine Ratio 32.1 (10-20); Calcium 8.3 mg/dl (8.5-10.1); Creatinine Clr Calc Pharmacy 50.9 ml/min; Est GFR (African American) 60.7; Est GFR (Non-African American) 52.4; Potassium 3.5 mmol/L (3.5-5.1)
[2019-09-27] MEDS ORDERED: CALCIUM GLUCONATE 10% 1,000 MG in SODIUM CHLORIDE 0.9% 50 ML IV ONE (07:30)
[2019-09-27] MEDS ORDERED: POTASSIUM CHLORIDE / WTR 10 MEQ/100 ML PLCT IV ONE (08:00)
[2019-09-27] MEDS: ENOXAPARIN INJ 30 MG/0.3 ML SYR SQ SCH (08:03)
[2019-09-27] MEDS: metroNIDAZOLE 500 MG/100 ML BAG IV SCH ×3 (08:08→23:26)
--- NOTE | 2019-09-27 08:49 | Surgery Progress Note ---
Date of Service September 27, 2019 Assessment & Plan (1) Perforated appendix: keep NG for now, hopefully remove by tomorrow WBC up slightly to 15, afebrile on IV Flagyl, cefoxitin Subjective feels better today-less pain, no flatus or BM, ambulating halls Physical Exam Gastrointestinal (Abdomen): Inspection/Auscultation: + abdomen distended (mild) and + abdominal surgical incision (clean, dry) Percussion/Palpation: abdomen soft NG 300 overnight Results & Data Vital Signs (Past 12 Hours) Vital Signs Temp Pulse Resp BP BP Pulse Ox 09/27/19 07:50 37.1 C 85 18 125/78 93 09/26/19 23:24 37 C 84 20 126/75 92 PG Care Time/CCT Total # of Minutes Spent Total Time Spent with Patient: Total time spent is greater than 50% in coordination of care (as documented) at patient's floor/unit and/or counseling patient: Coding Level of Care Code None Diagnoses Perforated appendix K35.32
[2019-09-27] MEDS ORDERED: cefTRIAXone SODIUM 2,000 MG in DEXTROSE 5% 50 ML IV SCH (09:00)
--- NOTE | 2019-09-27 09:10 | Hospitalist Progress Note ---
Date of Service September 27, 2019 Assessment & Plan (1) Small bowel obstruction: Acute appendicitis with perforation and abscess with adhesion causing Small bowel obstruction (SBO) status post Exploratory Laparotomy, Appendectomy, Drainage of Abscess, and Lysis of Adhesion on 09/25/2019 -This is a 79-year-old male with significant past medical history of HTN, HLD, gout (No prior hx of abd surgery, colonoscopy) who presents to ED secondary to abdominal pain and bloating x1 week. -admission CT scan abd/pelvis on 09/24/2019: with evidence of high grade SBO. was started on NG tube with intermittent suction in the ED and IV fluids and initial consult for general surgery service to assess -s/p Exploratory laparotomy, appendectomy, drainage of the abscess, lysis of adhesion on 09/25/2019. as per general surgeon Dr. Ivey report that the cause of the small bowel obstruction was from Acute appendicitis with perforation and abscess with adhesion. patient had received preop cefazolin, general surgeon ordered post-op cefoxitin, hospitalist ordered blood cultures to be done before post-op antibiotics to be given and also adding metronidazole 500 mg IV q8 hours for additional antibiotic coverage -09/27/2019: continue antibiotics. when cefoxitin dosing finishes on 09/27/2019, will plan to have ceftriaxone started on 09/27/2009. continue metronidazole for now. monitor the WBC. General surgery Dr. Bridges advises to keep NG tube in place for today. KUB imaging pending (2) MG (acute kidney injury): -Baseline creatinine is reported to be 0.9 -09/23/2019: BUN/creatinine 47 and 2.10, Prerenal azotemia in setting of SBO, poor p.o. intake and emesis at home -on IV fluids -creatinine markedly improved on 09/27/2019 as 1.29 (3) Electrolyte abnormality: -admission labs notable for hyponatremia with serum sodium 130 and serum potassium 3.4 -after normal saline IV fluids with potassium supplements, the serum sodium is 137 and serum potassium is 3.7 by AM of 09/25/2019 -currently on D5 1/2 normal saline while with NG tube, calcium gluconate given on 09/26/2019 and 09/27/2019 because of low serum ionized calcium which was noted to be present after patient's surgery and while being on NG tube -09/27/2019 serum sodium is 137 and creatinine is 1.29 (4) Atelectasis of both lungs: admission CXR: Basilar atelectasis -Aspiration precautions in setting of NG tube (5) Hypertension: -hold lisinopril in setting of MG and NPO -blood pressure stable (6) DVT prophylaxis: -SQ Heparin PT/OT evaluations, case management consulted and likely no discharge needs his outpatient primary care doctor is Dr. Navarro Admission and Anticipated Discharge Date Admission Date: September 24, 2019 Subjective Patient continues to have NG tube. continues to have abdomen binder. tovar removed yesterday. patient able to ambulate and make urine. No bowel movements yet since the surgery. no acute abdomen pain. no vomiting. no fevers Review of Systems Review of Systems: All systems reviewed & are unremarkable except as noted in Subjective Physical Exam Constitutional: WD/WN, vitals as above comfortable Eyes: PERRL, conjunctivae normal, anicteric sclerae EOM intact bilaterally ENMT: external ear and nose normal, oropharynx normal (NG tube, nasal cannula oxygen) Neck: normal visual inspection Respiratory: normal respiratory effort, lungs clear to auscultation Cardiovascular: Rate/Rhythm: regular rate and regular rhythm Gastrointestinal (Abdomen): has abdomen binder Musculoskeletal: Head/Neck/Chest: normocephalic and head atraumatic Neurologic: PERRL, EOMI, accommodation nl, no face palsy, no dysarthria CN's II-XI intact bilaterally Psychiatric: A+Ox3, euthymic affect Results & Data Results & Data ([facility]) Vital Signs (Past 12 Hours) Vital Signs Temp Pulse Resp BP BP Pulse Ox 09/27/19 07:50 37.1 C 85 18 125/78 93 09/26/19 23:24 37 C 84 20 126/75 92
--- NOTE | 2019-09-27 09:32 | XRay Report ---
KUB HISTORY: Follow up study in a patient with small bowel obstruction bowel obstruction s/p lysis of ad hesions/appendix COMPARISON: KUB 09/25/2019 FINDINGS: Midline skin danita. Distal tip of enteric tube terminates in expected location of the pyl orus. Air-filled loops of small and large bowel redemonstrated with small bowel loops measuring up to 6.4 cm demonstrating mild improvement from comparison. No pneumatosis or pneumoperitoneum. No urolit h. Degenerative changes of the spine, pelvis and hips. IMPRESSION: 1. Satisfactory positioning of the enteric tube. 2. Air-filled loops of large and small bowel are present with decreased small bowel distention from c omparison. Continued follow-up recommended. ACT 112: Negative or not required by law. The above report was generated using voice recognition software. It may contain grammatical, syntax o r spelling errors. Electronically signed by: Shmuel Gutiérrez M.D. 09/27/2019 9:31 AM
[2019-09-28] MEDS: INSULIN ASPART 100 UNITS/ML 3 ML PEN SC SCH ×3 (00:35→17:22)
[2019-09-28] MEDS: D5W AND 1/2NSS 1,000 ML IV SCH (01:50)
[2019-09-28 05:06] LABS: Basophils # (auto) 0.04 K/uL (0-0.2); Basophils % (auto) 0.3 %; Eosinophils # (auto) 0.32 K/uL (0-0.5); Eosinophils % (auto) 2.4 %; Hematocrit (blood only) 42.4 % (42-52); Hemoglobin 13.5 g/dL (14.0-18.0); Immature Granulocytes # (auto) 0.16 K/uL (0.00-0.02); Immature Granulocytes % (auto) 1.2 %; Lymphocytes # (auto) 1.76 K/uL (1.2-3.4); Lymphocytes % (auto) 13.1 %; Mean Corpuscular Hemoglobin 31.5 pg (25-34); Mean Corpuscular Hgb Conc 31.8 g/dL (32-36); Mean Corpuscular Volume 99.1 fL (80-100); Mean Platelet Volume 10.2 fL (7.4-10.4); Monocytes # (auto) 1.08 K/uL (0.11-0.59); Monocytes % (auto) 8.1 %; Neutrophils # (auto) 10.04 K/uL (1.4-6.5); Neutrophils % (auto) 74.9 %; Platelet Count 326 K/uL (130-400); RDW Coefficient of Variation 13.7 % (11.5-14.5); RDW Standard Deviation 49.4 fL (36.4-46.3); Red Blood Count 4.28 M/uL (4.7-6.1)
[2019-09-28 05:40] LABS: Albumin Level 2.5 gm/dl (3.4-5.0); BUN Creatinine Ratio 28.2 (10-20); Bilirubin,Total 0.6 mg/dl (0.2-1); Calcium 8.1 mg/dl (8.5-10.1); Creatinine Clr Calc Pharmacy 65.1 ml/min; Est GFR (African American) 81.6; Est GFR (Non-African American) 70.4; Potassium 3.3 mmol/L (3.5-5.1)
[2019-09-28 05:41] LABS: Albumin Globulin Ratio 0.6 (0.9-2); Total Protein 6.5 gm/dl (6.4-8.2)
[2019-09-28] MEDS ORDERED: CALCIUM GLUCONATE 10% 1,000 MG in SODIUM CHLORIDE 0.9% 50 ML IV STA (07:35)
[2019-09-28] MEDS ORDERED: D5W AND 1/2NSS + 20MEQ KCL 20 MEQ/1,000 ML BAG IV SCH (07:45)
--- NOTE | 2019-09-28 07:45 | Surgery Progress Note ---
Date of Service September 28, 2019 Assessment & Plan (1) Perforated appendix: POD 3 bowel function returning, moderate NG drainage although has had few ice cups clamp NG, maybe remove later today WBC 13, remains afebrile add 20 meq K+ to maintenance fluids Subjective increasing flatus, no BM, minimal pain Physical Exam Gastrointestinal (Abdomen): Inspection/Auscultation: + abdomen distended (less) Percussion/Palpation: abdomen soft NG 400 cc Results & Data Vital Signs (Past 12 Hours) Vital Signs Temp Pulse Resp BP BP Pulse Ox 09/28/19 07:37 37.0 C 78 16 145/85 H 90 09/27/19 23:24 37.4 C 80 16 117/72 94 PG Care Time/CCT Total # of Minutes Spent Total Time Spent with Patient: Total time spent is greater than 50% in coordination of care (as documented) at patient's floor/unit and/or counseling patient: Coding Level of Care Code None Diagnoses Perforated appendix K35.32
[2019-09-28] MEDS: POTASSIUM CHLORIDE / WTR 10 MEQ/100 ML PLCT IV SCH ×2 (08:04→09:01)
[2019-09-28] MEDS: metroNIDAZOLE 500 MG/100 ML BAG IV SCH ×3 (08:06→23:52)
[2019-09-28] MEDS: ENOXAPARIN INJ 30 MG/0.3 ML SYR SQ SCH (08:40)
--- NOTE | 2019-09-28 08:56 | Hospitalist Progress Note ---
Date of Service September 28, 2019 Assessment & Plan (1) Small bowel obstruction: Acute appendicitis with perforation and abscess with adhesion causing Small bowel obstruction (SBO) status post Exploratory Laparotomy, Appendectomy, Drainage of Abscess, and Lysis of Adhesion on 09/25/2019 -This is a 79-year-old male with significant past medical history of HTN, HLD, gout (No prior hx of abd surgery, colonoscopy) who presents to ED secondary to abdominal pain and bloating x1 week. -admission CT scan abd/pelvis on 09/24/2019: with evidence of high grade SBO. was started on NG tube with intermittent suction in the ED and IV fluids and initial consult for general surgery service to assess -s/p Exploratory laparotomy, appendectomy, drainage of the abscess, lysis of adhesion on 09/25/2019. as per general surgeon Dr. Ivey report that the cause of the small bowel obstruction was from Acute appendicitis with perforation and abscess with adhesion. patient had received preop cefazolin, general surgeon ordered post-op cefoxitin, hospitalist ordered blood cultures to be done before post-op antibiotics to be given and also adding metronidazole 500 mg IV q8 hours for additional antibiotic coverage -09/27/2019: continue antibiotics. when cefoxitin dosing finishes on 09/27/2019, will plan to have ceftriaxone started on 09/27/2009. continue metronidazole for now. monitor the WBC. General surgery Dr. Bridges advises to keep NG tube in place for today. KUB imaging showing improvements -09/28/2019: on ceftriaxone and metronidazole antibiotics, possibly the NG tube can be taken out today, patient still has not had bowel movements since the surgery but he is passing gas. when NG tube is removed, will need to give patient bowel regimen to stimulate bowel movement (2) MG (acute kidney injury): -Baseline creatinine is reported to be 0.9 -09/23/2019: BUN/creatinine 47 and 2.10, Prerenal azotemia in setting of SBO, poor p.o. intake and emesis at home -on IV fluids -creatinine markedly improved on 09/27/2019 as 1.29 (3) Electrolyte abnormality: -admission labs notable for hyponatremia with serum sodium 130 and serum potassium 3.4 -after normal saline IV fluids with potassium supplements, the serum sodium is 1 37 and serum potassium is 3.7 by AM of 09/25/2019 -currently on D5 1/2 normal saline while with NG tube, calcium gluconate given on 09/26/2019 and 09/27/2019 because of low serum ionized calcium which was noted to be present after patient's surgery and while being on NG tube -09/28/2019 serum sodium is 138 and patient given IV potassium supplements and IV calcium gluconate (4) Atelectasis of both lungs: admission CXR: Basilar atelectasis -Aspiration precautions in setting of NG tube (5) Hypertension: -hold lisinopril has been held on this admission because of being NPO and also to treat MG -blood pressure stable (6) DVT prophylaxis: -SQ Heparin PT/OT evaluations, case management consulted and likely no discharge needs his outpatient primary care doctor is Dr. Navarro Admission and Anticipated Discharge Date Admission Date: September 24, 2019 Subjective Patient seen by general surgery team today. NG tube is clamped. NG tube remains in the nose. Patient passing gas. No bowel movements since the surgery. still has abdomen binder. no acute pain. no respiratory or shortness of breath. no vomiting. no fever. no headache Review of Systems Review of Systems: All systems reviewed & are unremarkable except as noted in Subjective Physical Exam 2 Constitutional: WD/WN, vitals as above comfortable Eyes: PERRL, conjunctivae normal, anicteric sclerae EOM intact bilaterally ENMT: external ear and nose normal, oropharynx normal (NG tube) Neck: normal visual inspection Respiratory: normal respiratory effort, lungs clear to auscultation Cardiovascular: Rate/Rhythm: regular rate and regular rhythm Gastrointestinal (Abdomen): abdomen binder in place Musculoskeletal: Head/Neck/Chest: normocephalic and head atraumatic Neurologic: PERRL, EOMI, accommodation nl, no face palsy, no dysarthria CN's II-XI intact bilaterally Psychiatric: A+Ox3, euthymic affect Results & Data Results & Data ([facility]) Vital Signs (Past 12 Hours) Vital Signs Temp Pulse Resp BP BP Pulse Ox 09/28/19 07:37 37.0 C 78 16 145/85 H 90 09/27/19 23:24 37.4 C 80 16 117/72 94
[2019-09-28] MEDS ORDERED: cefTRIAXone SODIUM 1,000 MG in DEXTROSE 5% 50 ML IV SCH (09:00)
[2019-09-28] MEDS: cefTRIAXone SODIUM 2,000 MG in DEXTROSE 5% 50 ML IV SCH (09:40)
[2019-09-28] MEDS ORDERED: POLYETHYLENE (MIRALAX) 17 GM PACK PO STA (11:13)
[2019-09-28] MEDS ORDERED: POLYETHYLENE (MIRALAX) 17 GM PACK PO PRN (11:13)
[2019-09-28] MEDS ORDERED: ACETAMINOPHEN 325 MG TAB PO PRN (11:14)
[2019-09-28] MEDS ORDERED: OXYCODONE HCL IR 5 MG TAB (IMMEDIATE RELEASE) PO PRN (11:14)
[2019-09-28] MEDS ORDERED: HYDROmorphone INJ 0.5 MG/0.5 ML SYR IV PRN (11:14)
[2019-09-28] MEDS: SENNA 8.6 MG TAB PO SCH (12:42)
[2019-09-29 05:04] LABS: Basophils # (auto) 0.04 K/uL (0-0.2); Basophils % (auto) 0.3 %; Eosinophils # (auto) 0.36 K/uL (0-0.5); Eosinophils % (auto) 2.4 %; Hematocrit (blood only) 40.1 % (42-52); Hemoglobin 13.1 g/dL (14.0-18.0); Immature Granulocytes # (auto) 0.19 K/uL (0.00-0.02); Immature Granulocytes % (auto) 1.3 %; Lymphocytes # (auto) 2.42 K/uL (1.2-3.4); Lymphocytes % (auto) 16.5 %; Mean Corpuscular Hgb Conc 32.7 g/dL (32-36); Monocytes # (auto) 1.16 K/uL (0.11-0.59); Monocytes % (auto) 7.9 %; Neutrophils # (auto) 10.53 K/uL (1.4-6.5); Neutrophils % (auto) 71.6 %; Platelet Count 336 K/uL (130-400); RDW Coefficient of Variation 13.6 % (11.5-14.5); RDW Standard Deviation 48.9 fL (36.4-46.3); Red Blood Count 4.09 M/uL (4.7-6.1)
[2019-09-29 05:36] LABS: Albumin Level 2.4 gm/dl (3.4-5.0); BUN Creatinine Ratio 26.1 (10-20); Calcium 7.6 mg/dl (8.5-10.1); Creatinine Clr Calc Pharmacy 67.7 ml/min; Est GFR (African American) 85.7; Est GFR (Non-African American) 73.9; Potassium 3.4 mmol/L (3.5-5.1)
[2019-09-29 05:38] LABS: Albumin Globulin Ratio 0.6 (0.9-2); Bilirubin,Total 0.6 mg/dl (0.2-1); Globulin 3.8 gm/dl (2.5-4.0); Total Protein 6.2 gm/dl (6.4-8.2)
[2019-09-29] MEDS: metroNIDAZOLE 500 MG/100 ML BAG IV SCH ×3 (07:29→23:31)
[2019-09-29] MEDS ORDERED: POTASSIUM CHLORIDE 20 MEQ TABCR PO STA (07:50)
[2019-09-29] MEDS ORDERED: CALCIUM GLUCONATE 10% 1,000 MG in SODIUM CHLORIDE 0.9% 50 ML IV ONE (08:00)
--- NOTE | 2019-09-29 08:12 | Surgery Progress Note ---
Date of Service September 29, 2019 Assessment & Plan (1) Perforated appendix: POD#4 exploratory laparotomy, appendectomy, and washout of abscess Patient clinically feeling well WBC up somewhat to 14.7 from 13.4; patient afebrile; there is some surrounding erythema of incision we will keep an eye on Continue IV abx today Patient tolerating full liquids and starting to have bowel function Will advance diet as tolerates today Encourage ambulation as above. feeling good. "hungry". +bm overnight. wound slightly erythematous--will monitor. no drainage. continue antibiotics. monitor wbc/fever curve ok to advance diet. increase activity. Subjective Patient says he feels great today. He is tolerating full liquids without nausea/vomiting or abdominal pain. He is passing gas and having loose stools. Physical Exam Physical Exam: awake/alert Constitutional: well developed and well nourished; no acute distress Gastrointestinal (Abdomen): Inspection/Auscultation: + abdomen distended (mild) and + abdominal surgical incision (c/d/i, with danita in midline incision, some surrounding erythema) Percussion/Palpation: abdomen soft Results & Data Vital Signs (Past 12 Hours) Vital Signs Temp Pulse Resp BP Pulse Ox 09/29/19 07:36 37.3 C 74 16 141/81 H 93 09/28/19 23:09 37.4 C 80 16 116/76 91 PG Care Time/CCT Total # of Minutes Spent Total Time Spent with Patient: Total time spent is greater than 50% in coordination of care (as documented) at patient's floor/unit and/or counseling patient: Coding Level of Care Code None Diagnoses Perforated appendix K35.32
[2019-09-29] MEDS ORDERED: POTASSIUM CHLORIDE / WTR 10 MEQ/100 ML PLCT IV ONE (08:15)
--- NOTE | 2019-09-29 08:56 | Hospitalist Progress Note ---
Date of Service September 29, 2019 Assessment & Plan (1) Small bowel obstruction: Acute appendicitis with perforation and abscess with adhesion causing Small bowel obstruction (SBO) status post Exploratory Laparotomy, Appendectomy, Drainage of Abscess, and Lysis of Adhesion on 09/25/2019 -This is a 79-year-old male with significant past medical history of HTN, HLD, gout (No prior hx of abd surgery, colonoscopy) who presents to ED secondary to abdominal pain and bloating x1 week. -admission CT scan abd/pelvis on 09/24/2019: with evidence of high grade SBO. was started on NG tube with intermittent suction in the ED and IV fluids and initial consult for general surgery service to assess -s/p Exploratory laparotomy, appendectomy, drainage of the abscess, lysis of adhesion on 09/25/2019. as per general surgeon Dr. Ivey report that the cause of the small bowel obstruction was from Acute appendicitis with perforation and abscess with adhesion. patient had received preop cefazolin, general surgeon ordered post-op cefoxitin, hospitalist ordered blood cultures to be done before post-op antibiotics to be given and also adding metronidazole 500 mg IV q8 hours for additional antibiotic coverage -09/27/2019: continue antibiotics. when cefoxitin dosing finishes on 09/27/2019, will plan to have ceftriaxone started on 09/27/2009. continue metronidazole for now. monitor the WBC. General surgery Dr. Bridges advises to keep NG tube in place for today. KUB imaging showing improvements -09/28/2019: on ceftriaxone and metronidazole antibiotics, the NG tube removed, patient then given miralax and senna and then made small bowel movements can be taken out today -09/29/2019: general surgery changed dressing, continues to have abdomen binder, patient tolerating the full liquid diet, continue miralax and senna and encourage ambulation, possibly can transition to regular texture diet, continue monitoring in hospital, follow general surgery recommendations (2) MG (acute kidney injury): -Baseline creatinine is reported to be 0.9 -09/23/2019: BUN/creatinine 47 and 2.10, Prerenal azotemia in setting of SBO, poor p.o. intake and emesis at home -on IV fluids -creatinine markedly improved on 09/27/2019 as 1.29, creatinine is 0.97 on 09/29/2019 (3) Electrolyte abnormality: -admission labs notable for hyponatremia with serum sodium 130 and serum potassium 3.4 -during hospital stay patient has received IV fluids, and electrolyte supplements of potassium and calcium gluconate -serum sodium is normalized. -09/29/2019: give potassium supplements and calcium gluconate (4) Atelectasis of both lungs: admission CXR: Basilar atelectasis -breathing on room air, incentive spirometer (5) Hypertension: -hold lisinopril has been held on this admission because of being NPO and also to treat MG -resuming home dose lisinopril 40 mg starting on 09/29/2019 (6) DVT prophylaxis: -SQ Heparin PT/OT evaluations, case management consulted and likely no discharge needs his outpatient primary care doctor is Dr. Navarro Admission and Anticipated Discharge Date Admission Date: September 24, 2019 Subjective Patient seen and examined at bedside. he has been making small and loose bowel movements yesterday after NG tube taken out. He does not have acute abdomen pain. The general surgery team changed the dressing today and he continues to have abdomen binder. he is encouraged to do more ambulation. breathing on room air. no shortness of breath. no chest pain. he is tolerating the full liquid diet. no vomiting Review of Systems Review of Systems: All systems reviewed & are unremarkable except as noted in Subjective Physical Exam Constitutional: WD/WN, vitals as above comfortable Eyes: PERRL, conjunctivae normal, anicteric sclerae EOM intact bilaterally ENMT: external ear and nose normal, oropharynx normal (NG tube) Neck: normal visual inspection Respiratory: normal respiratory effort, lungs clear to auscultation Cardiovascular: Rate/Rhythm: regular rate and regular rhythm Gastrointestinal (Abdomen): abdomen binder in place Musculoskeletal: Head/Neck/Chest: normocephalic and head atraumatic Neurologic: PERRL, EOMI, accommodation nl, no face palsy, no dysarthria CN's II-XI intact bilaterally Psychiatric: A+Ox3, euthymic affect Results & Data Results & Data ([facility]) Vital Signs (Past 12 Hours) Vital Signs Temp Pulse Resp BP Pulse Ox 09/29/19 07:36 37.3 C 74 16 141/81 H 93 09/28/19 23:09 37.4 C 80 16 116/76 91
[2019-09-29] MEDS ORDERED: lisinopriL 40 MG TAB PO STA (09:01)
[2019-09-29] MEDS: ENOXAPARIN INJ 30 MG/0.3 ML SYR SQ SCH (09:53)
[2019-09-29] MEDS: SENNA 8.6 MG TAB PO SCH (09:54)
[2019-09-29] MEDS: cefTRIAXone SODIUM 2,000 MG in DEXTROSE 5% 50 ML IV SCH (11:27)
[2019-09-30 05:32] LABS: Basophils # (auto) 0.05 K/uL (0-0.2); Basophils % (auto) 0.4 %; Eosinophils # (auto) 0.34 K/uL (0-0.5); Eosinophils % (auto) 2.6 %; Hematocrit (blood only) 41.2 % (42-52); Hemoglobin 13.5 g/dL (14.0-18.0); Immature Granulocytes # (auto) 0.27 K/uL (0.00-0.02); Immature Granulocytes % (auto) 2.1 %; Lymphocytes # (auto) 2.44 K/uL (1.2-3.4); Mean Corpuscular Hemoglobin 32.3 pg (25-34); Mean Corpuscular Hgb Conc 32.8 g/dL (32-36); Mean Corpuscular Volume 98.6 fL (80-100); Mean Platelet Volume 10.1 fL (7.4-10.4); Monocytes % (auto) 9.3 %; Neutrophils # (auto) 8.54 K/uL (1.4-6.5); Neutrophils % (auto) 66.6 %; Platelet Count 340 K/uL (130-400); RDW Coefficient of Variation 13.5 % (11.5-14.5); RDW Standard Deviation 48.4 fL (36.4-46.3); Red Blood Count 4.18 M/uL (4.7-6.1); White Blood Count 12.84 K/uL (4.8-10.8)
[2019-09-30 06:04] LABS: Albumin Level 2.5 gm/dl (3.4-5.0); BUN Creatinine Ratio 24.5 (10-20); Calcium 7.8 mg/dl (8.5-10.1); Creatinine Clr Calc Pharmacy 71.4 ml/min; Est GFR (African American) 91.4; Est GFR (Non-African American) 78.8; Potassium 3.7 mmol/L (3.5-5.1)
[2019-09-30 06:07] LABS: Albumin Globulin Ratio 0.6 (0.9-2); Bilirubin,Total 0.3 mg/dl (0.2-1); Globulin 4.1 gm/dl (2.5-4.0); Total Protein 6.6 gm/dl (6.4-8.2)
--- NOTE | 2019-09-30 08:08 | Surgery Progress Note ---
Date of Service September 30, 2019 Assessment & Plan (1) Perforated appendix: POD#5 exploratory laparotomy, appendectomy, and washout of abscess Patient clinically feeling well WBC down today to 12.8 from 14.7; patient afebrile Incisional erythema stable from yesterday Currently tolerating a regular diet, + bowel function Abdomen soft/nontender/nondistended Continue course of abx Encourage ambulation as tolerates Will need follow up with Dr. Ivey at time of discharge Supervising Physician Co-Signing Physician Notes pnt seen and examined, agree with above. s/p ex-lap and appendectomy for perforated appendicitis causing sbo. Doing well, tolerated diet, +bm. no pain. on exam incision with some erythema likely related to danita, no abscess or obvious infection. abd soft, appropriately ttp. wbc 12, downtrending. possible d/c tomorrow, will need oral abx and f/u with Dr. Ivey. Subjective Patient states he is feeling well. He tolerated a regular diet yesterday without N/V or abdominal pain. He continues to pass loose BM's but feels like they are becoming more formed. Physical Exam Physical Exam: awake/alert Respiratory: normal respiratory effort Gastrointestinal (Abdomen): Inspection/Auscultation: + abdominal surgical incision (c/d/i with danita in midline incision, erythema similar to yesterday); abdomen not distended Percussion/Palpation: abdomen soft; abdomen nontender Results & Data Vital Signs (Past 12 Hours) Vital Signs Temp Pulse Pulse Resp BP BP Pulse Ox 09/30/19 07:43 36.9 C 70 16 145/79 H 94 09/29/19 23:20 37.0 C 72 16 147/81 H 93 PG Care Time/CCT Total # of Minutes Spent Total Time Spent with Patient: Total time spent is greater than 50% in coordination of care (as documented) at patient's floor/unit and/or counseling patient: Coding Level of Care Code None Diagnoses Perforated appendix K35.32
[2019-09-30] MEDS: lisinopriL 40 MG TAB PO SCH (08:16)
[2019-09-30] MEDS: SENNA 8.6 MG TAB PO SCH (08:16)
[2019-09-30] MEDS: metroNIDAZOLE 500 MG/100 ML BAG IV SCH ×3 (08:16→23:18)
[2019-09-30] MEDS: ENOXAPARIN INJ 30 MG/0.3 ML SYR SQ SCH (08:17)
[2019-09-30] MEDS: cefTRIAXone SODIUM 2,000 MG in DEXTROSE 5% 50 ML IV SCH (09:25)
--- NOTE | 2019-09-30 12:44 | Hospitalist Progress Note ---
Date of Service September 30, 2019 Assessment & Plan (1) Perforated appendix: 79 year old male with history of HTN, HLD, Gout presenting with SBO. (1) Acute appendicitis with perforation and abscess with adhesion causing Small bowel obstruction (SBO) status post Exploratory Laparotomy, Appendectomy, Drainage of Abscess, and Lysis of Adhesion on 09/25/2019 Post Op day # 5 stable overall tolerating regular diet, (+) BM erythema of surgical wound being monitored--> no fever, leukocytosis improving continue Ceftriaxone + Flagyl monitor (2) MG (acute kidney injury): - Baseline creatinine is reported to be 0.9 - 09/23/2019: BUN/creatinine 47 and 2.10 - resolved with IV fluids (3) Electrolyte abnormality: - admission labs notable for hyponatremia with serum sodium 130 and serum potassium 3.4 - resolved (4) Atelectasis of both lungs: - admission CXR: Basilar atelectasis - breathing on room air, incentive spirometer (5) Hypertension: stable on Lisinopril (6) DVT prophylaxis: -SQ Lovenox Disposition anticipate d/c to home when medically stable lives alone, may need home health services on discharge Admission and Anticipated Discharge Date Admission Date: September 24, 2019 Subjective ff up for appendicitis with abscess, SBO seen resting , sitting up in bed, comfortable, in good spirits tolerating regular diet well denies abdominal pain, nausea (+) loose BM this morning, no blood denies chest pain, dyspnea, palpitations no other symptoms Review of Systems Review of Systems: All systems reviewed & are unremarkable except as noted in HPI & below Physical Exam Physical Exam: General- oriented x 3, not in distress, speaks in sentences with no effort or accessory muscle use Head- atraumatic Eyes- PERRL, EOMI, anicteric ENT- oropharynx clear Neck- supple, no JVD, no adenopathy, no thyromegaly; carotids +2/2, no bruits appreciated Lungs- clear to auscultation bilaterally, no rales/wheezes Heart- normal rate, regular rhythm; no murmur, no gallop, no rub appreciated Abdomen- normal bowel sounds, nondistended, soft, nontender, no masses or hepatosplenomegaly (+) midline surgical incision: danita in place, mild erythema bordering the scar, no discharge Extremities- no pretibial edema, no calf tenderness; peripheral pulses intact Neuro- alert, oriented x 3; CN 2-12 grossly intact; motor 5/5 bilaterally;sensation 100% on all extremities; no other gross focal neurologic deficits Skin- warm & dry Results & Data Results & Data ([facility]) Vital Signs (Past 12 Hours) Vital Signs Temp Pulse Resp BP Pulse Ox 09/30/19 07:43 36.9 C 70 16 145/79 H 94 Laboratory Results Laboratory Results - last 24 hr 09/30/19 09/30/19 09/30/19 05:25 05:25 05:25 WBC 12.84 H RBC 4.18 L Hgb 13.5 L Hct 41.2 L MCV 98.6 MCH 32.3 MCHC 32.8 RDW Std Deviation 48.4 H RDW Coeff of Kathy 13.5 Plt Count 340 MPV 10.1 Immature Gran % (Auto) 2.1 Neut % (Auto) 66.6 Lymph % (Auto) 19.0 [place] % (Auto) 9.3 Eos % (Auto) 2.6 Baso % (Auto) 0.4 Immature Gran # (Auto) 0.27 H Neut # (Auto) 8.54 H Lymph # (Auto) 2.44 [place] # (Auto) 1.20 H Eos # (Auto) 0.34 Baso # (Auto) 0.05 Sodium 136 Potassium 3.7 Chloride 108 H Carbon Dioxide 28 Anion Gap 0 L BUN 23 H Creatinine 0.92 Est Cr Clr Drug Dosing 71.4 Est GFR ( Amer) 91.4 Est GFR (Non-Af Amer) 78.8 BUN/Creatinine Ratio 24.5 H Glucose 115 H Calcium 7.8 L Ionized Calcium 1.05 L Total Bilirubin 0.3 AST 24 ALT 41 Alkaline Phosphatase 47 Total Protein 6.6 Albumin 2.5 L Globulin 4.1 H Albumin/Globulin Ratio 0.6 L
--- NOTE | 2019-10-01 08:45 | Surgery Progress Note ---
Date of Service October 01, 2019 Assessment & Plan (1) Perforated appendix: POD 6 ok for d/c on po abx as above. feeling great. bob diet. would like to go home incision same as on Saturday...recommend home on Cipro instructions given. f/u with Dr. Ivey in 1 week. Subjective tolerating diet, not needing any analgesics Physical Exam Gastrointestinal (Abdomen): Inspection/Auscultation: + abdominal surgical incision (dry, mild staple erythema); abdomen not distended Percussion/Palpation: abdomen soft Results & Data Vital Signs (Past 12 Hours) Vital Signs Temp Pulse Pulse Resp BP Pulse Ox 10/01/19 07:43 37.0 C 67 18 146/88 H 94 09/30/19 23:02 36.8 C 71 16 159/81 H 95 PG Care Time/CCT Total # of Minutes Spent Total Time Spent with Patient: Total time spent is greater than 50% in coordination of care (as documented) at patient's floor/unit and/or counseling patient: Coding Level of Care Code None Diagnoses Perforated appendix K35.32
[2019-10-01 08:58] LABS: Basophils # (auto) 0.07 K/uL (0-0.2); Basophils % (auto) 0.6 %; Eosinophils # (auto) 0.24 K/uL (0-0.5); Eosinophils % (auto) 1.9 %; Hematocrit (blood only) 41.1 % (42-52); Hemoglobin 13.7 g/dL (14.0-18.0); Immature Granulocytes # (auto) 0.37 K/uL (0.00-0.02); Immature Granulocytes % (auto) 2.9 %; Lymphocytes # (auto) 2.26 K/uL (1.2-3.4); Mean Corpuscular Hemoglobin 32.7 pg (25-34); Mean Corpuscular Hgb Conc 33.3 g/dL (32-36); Mean Corpuscular Volume 98.1 fL (80-100); Mean Platelet Volume 10.1 fL (7.4-10.4); Monocytes # (auto) 1.04 K/uL (0.11-0.59); Monocytes % (auto) 8.3 %; Neutrophils % (auto) 68.3 %; Platelet Count 385 K/uL (130-400); RDW Coefficient of Variation 13.4 % (11.5-14.5); RDW Standard Deviation 48.1 fL (36.4-46.3); Red Blood Count 4.19 M/uL (4.7-6.1); White Blood Count 12.58 K/uL (4.8-10.8)
[2019-10-01] MEDS: SENNA 8.6 MG TAB PO SCH (09:12)
[2019-10-01] MEDS: cefTRIAXone SODIUM 2,000 MG in DEXTROSE 5% 50 ML IV SCH (09:12)
[2019-10-01] MEDS: metroNIDAZOLE 500 MG/100 ML BAG IV SCH (09:12)
[2019-10-01] MEDS: ENOXAPARIN INJ 30 MG/0.3 ML SYR SQ SCH (09:12)
[2019-10-01] MEDS: lisinopriL 40 MG TAB PO SCH (09:12)
[2019-10-01 09:14] LABS: Est GFR (Non-African American) 84.5; Potassium 4.1 mmol/L (3.5-5.1)
[2019-10-01 09:15] LABS: Creatinine Clr Calc Pharmacy 81.1 ml/min
--- NOTE | 2019-10-01 10:49 | Hospitalist Progress Note ---
Date of Service October 01, 2019 Assessment & Plan (1) Perforated appendix: 79 year old male with history of HTN, HLD, Gout presenting with SBO. (1) Acute appendicitis with perforation and abscess with adhesion causing Small bowel obstruction (SBO) status post Exploratory Laparotomy, Appendectomy, Drainage of Abscess, and Lysis of Adhesion on 09/25/2019 Post Op day # 6 remains stable overall tolerating regular diet, (+) formed BM afebrile, WBC stable at 12k given Ceftriaxone + Flagyl while admitted cleared for discharge by General Surgery Service complete course of Cipro PO ff up with Surgeon Dr. Ivey in 1 week oil field caser to set up home health service (2) MG (acute kidney injury): - Baseline creatinine is reported to be 0.9 - 09/23/2019: BUN/creatinine 47 and 2.10 - resolved with IV fluids (3) Electrolyte abnormality: - admission labs notable for hyponatremia with serum sodium 130 and serum potassium 3.4 - resolved (4) Atelectasis of both lungs: - admission CXR: Basilar atelectasis - breathing on room air, incentive spirometer (5) Hypertension: stable on Lisinopril (6) Localized Pain over the Left Dorsum of the Foot, secondary to Bone Spur? - no problems walking declines xray at this time - follow up and monitor as outpatient (6) DVT prophylaxis: -SQ Lovenox Disposition d/c home ff up with Gen Surg Dr. Ivey in 1 week ff up with PCP in 1 week oil field caser to set up home health service case discussed with patient in detail all questions answered he is understanding, agreeable, comfortable with the plan of care Admission and Anticipated Discharge Date Admission Date: September 24, 2019 Subjective ff up for SBO, appendicitis with abscess seen resting in bed, just had breakfast in good spirits, bright, states he feels fine overall denies abdominal pain, pain on the incision site no chills no nausea/vomiting, (+) formed BMs tolerating diet well ambulates in the halls with no problems states he is ready and would like to be discharged today Review of Systems Review of Systems: All systems reviewed & are unremarkable except as noted in HPI & below Physical Exam Physical Exam: General- oriented x 3, not in distress, speaks in sentences with no effort or accessory muscle use Eyes- anicteric Neck- no JVD Lungs- clear breath sounds bilaterally, no crackles no wheezing Heart- normal rate, regular rhythm; no murmurs Abdomen- normal bowel sounds, nondistended, soft, nontender incision site: danita in place, well opposed, mild erythema surrounding the incision- improved no discharge or bleeding, no tenderness/warmth Extremities- no pretibial edema, no calf tenderness (+) small possible bone spur on the left dorsum of the left foot- mildly tender , over the extensor hallucis Neuro- alert, oriented x 3; no gross focal neurologic deficits Skin- warm & dry Results & Data Results & Data ([facility]) Vital Signs (Past 12 Hours) Vital Signs Temp Pulse Pulse Resp BP Pulse Ox 10/01/19 07:43 37.0 C 67 18 146/88 H 94 09/30/19 23:02 36.8 C 71 16 159/81 H 95 Laboratory Results Laboratory Results - last 24 hr 10/01/19 10/01/19 08:39 08:39 WBC 12.58 H RBC 4.19 L Hgb 13.7 L Hct 41.1 L MCV 98.1 MCH 32.7 MCHC 33.3 RDW Std Deviation 48.1 H RDW Coeff of Kathy 13.4 Plt Count 385 MPV 10.1 Immature Gran % (Auto) 2.9 Neut % (Auto) 68.3 Lymph % (Auto) 18.0 [place] % (Auto) 8.3 Eos % (Auto) 1.9 Baso % (Auto) 0.6 Immature Gran # (Auto) 0.37 H Neut # (Auto) 8.60 H Lymph # (Auto) 2.26 [place] # (Auto) 1.04 H Eos # (Auto) 0.24 Baso # (Auto) 0.07 Sodium 140 Potassium 4.1 Chloride 110 H Carbon Dioxide 26 Anion Gap 4.0 BUN 20 H Creatinine 0.81 Est Cr Clr Drug Dosing 81.1 Est GFR ( Amer) 98.0 Est GFR (Non-Af Amer) 84.5 BUN/Creatinine Ratio 25.0 H Glucose 114 H Calcium 8.0 L
--- NOTE | 2019-10-01 11:00 | Discharge Summary ---
Date of Service October 01, 2019 Admission HPI Per Admitting Provider This is a 79-year-old male with significant past medical history of HTN, HLD, gout who presents to ED secondary to abdominal pain and bloating x1 week. 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 He then drank a few beers that evening and when he went to bed developed severe periumbilical abdominal pain, constant, nonradiating, 8/10, nothing made better or worse. After several hours the pain subsided; however, over the past week he has developed significant increase in bloating. He has been unable to tolerate any solid food since last , nausea, emesis. He vomited oral contrast in the ED and his last episode of emesis was yesterday around 8 PM. He has been able to tolerate liquids in small quantities. He denies any hematemesis. His last bowel movement was yesterday morning and it was normal for him. He denied any melena or hematochezia. He further denies any fever, chills, sweats, lightheadedness, dizziness, chest pain, shortness of breath, cough, hemoptysis, dysuria, increased urgency or frequency with urination. Due to the abdominal distention and bloating he felt he was having difficulty taking a deep breath but did not overall feel short of breath. He also elicits decreased in urination due to inability to tolerate oral intake. He denies ever having similar symptoms in the past. He only takes lisinopril for blood pressure. His only surgery was tonsils and adenoids. He denies ever having any abdominal surgery, colonoscopy or EGD. He denies any weight loss or night sweats. In ED patient was hemodynamically stable and afebrile. He was mildly hypoxic requiring O2 via NC. Lab work notable for WBC 12.73, H&H 17.1 and 49.3, sodium 130, K3.4, chloride 90, CO2 33, BUN 47, creatinine 2.10, glucose 163, LFTs WNL, lipase 244. CT scan of abdomen pelvis revealed high-grade small bowel obstruction. ED provider spoke with general surgeon who recommended NG tube placement. NG tube was placed and 2.5 L of bilious material was returned. He was then placed on intermittent drainage. Admission Exam Per Admitting Provider Constitutional: WD/WN, M, vitals as above, NAD, sitting up in bed, pleasant, conversing easily Head: Normocephalic, Atraumatic Eyes: PERRL, conjunctivae normal, anicteric sclerae ENMT: external ear and nose normal, oropharynx normal +NG tube in place ( 2.5L removed so far) Neck: trachea midline, no thyromegaly normal visual inspection Respiratory: normal respiratory effort, lungs clear to auscultation, no wheeze, rales, rhonchi. Normal insp/exp effort, no accessory muscle use Cardiovascular: RRR, 2/6 LOUISA noted RUSB, no edema Vessels: no JVD or carotid bruit Chest: normal inspection of chest Abdomen: absent BS, soft but mildly distended, nontender, no hepatosplenomegaly Musculoskeletal: no cyanosis or clubbing, extremities motor strength 5/5 Skin: no rashes, warm and dry moderate turgor Neurologic: PERRL, EOMI, accommodation nl, no face palsy, no dysarthria CN's II-XI intact bilaterally and moves all extremities Psychiatric: A+Ox3, euthymic affect Lymphatic: no cervical or axillary lymphadenopathy : deferred Principal Diagnosis Acute appendicitis with perforation and abscess with adhesion causing Small bowel obstruction (SBO) status post Exploratory Laparotomy, Appendectomy, Drainage of Abscess, and Lysis of Adhesion on 09/25/2019 Discharge Exam General- oriented x 3, not in distress, speaks in sentences with no effort or accessory muscle use Eyes- anicteric Neck- no JVD Lungs- clear breath sounds bilaterally, no crackles no wheezing Heart- normal rate, regular rhythm; no murmurs Abdomen- normal bowel sounds, nondistended, soft, nontender incision site: danita in place, well opposed, mild erythema surrounding the incision- improved no discharge or bleeding, no tenderness/warmth Extremities- no pretibial edema, no calf tenderness (+) small possible bone spur on the left dorsum of the left foot- mildly tender , over the extensor hallucis Neuro- alert, oriented x 3; no gross focal neurologic deficits Skin- warm & dry Discharge Data Allergies Allergy/AdvReac Type Severity Reaction Status Date / Time ibuprofen [From Motrin] Allergy Unknown Hives Verified 09/24/19 18:24 Consultations 09/24/19 18:56 ED Decision to Admit Stat ED Decision to Admit Stat 09/24/19 20:57 Consult General Surgery Routine 09/26/19 08:12 Consult Case Management - Discharge Planning Routine Procedures Performed Operation Date: 09/25/19 07:00 Actual Procedures p Exploratory Laparotomy - Anupam Ivey MD s Appendectomy, Drainage of Abscess, and Lysis of Adhesions - Anupam Ivey MD Ordered Studies 09/24/19 17:18 CT abd pelvis oral con only Stat Patient was scanned following administration of dilute oral contrast. The patient was unable to tolerate the contrast and vomited. Visualized portions lung bases reveal borderline enlarged mediastinal lymph nodes. There are basilar opacities, statistically atelectatic. No hepatic masses are visualized in this noncontrast study. No gallbladder abnormalities are visualized. No splenic abnormalities are visualized. No pancreatic abnormalities are identified. Neither adrenal gland is pathologically enlarged. No renal, ureteral, or bladder calculi are visualized. There is a right renal cyst. There are fluid-filled dilated small bowel loops with multiple air-fluid levels. The colon is of normal caliber. The distal small bowel is of normal caliber. There is a pelvic transition zone. The findings are indicative of a small bowel obstruction. There are scattered colonic diverticula present. There is no evidence of acute diverticulitis. There is no evidence of acute appendicitis. There is no evidence of abdominal aortic dilatation. There is no free air. There is no ascites. There is no pneumatosis. There is no portal venous gas. Mild bladder wall thickening is felt to be secondary to a contracted bladder. There is no pathologic adenopathy. No destructive skeletal lesions are visualized. IMPRESSION: 1. CT findings indicative of a high-grade small bowel obstruction. 2. No evidence of free air. No evidence of pneumatosis. No evidence of portal venous gas. Hospital Course (1) Perforated appendix: 79 year old male with history of HTN, HLD, Gout presenting with SBO. (1) Acute appendicitis with perforation and abscess with adhesion causing Small bowel obstruction (SBO) status post Exploratory Laparotomy, Appendectomy, Drainage of Abscess, and Lysis of Adhesion on 09/25/2019 Post Op day # 6 remains stable overall tolerating regular diet, (+) formed BM afebrile, WBC stable at 12k given Ceftriaxone + Flagyl while admitted cleared for discharge by General Surgery Service complete course of Cipro PO ff up with Surgeon Dr. Ivey in 1 week case loader operator to set up home health service (2) MG (acute kidney injury): - Baseline creatinine is reported to be 0.9 - 09/23/2019: BUN/creatinine 47 and 2.10 - resolved with IV fluids (3) Electrolyte abnormality: - admission labs notable for hyponatremia with serum sodium 130 and serum potassium 3.4 - resolved (4) Atelectasis of both lungs: - admission CXR: Basilar atelectasis - breathing on room air, incentive spirometer (5) Hypertension: stable on Lisinopril (6) Localized Pain over the Left Dorsum of the Foot, secondary to Bone Spur? - no problems walking declines xray at this time - follow up and monitor as outpatient (7) Borderline enlarged mediastinal lymph nodes - seen on CT abdomen/pelvis (please refer to full report on Data Section above) - (+) history of smoking - please perform CT chest as outpatient (6) DVT prophylaxis: -SQ Lovenox given Disposition d/c home ff up with Gen Surg Dr. Ivey in 1 week ff up with PCP in 1 week case loader operator to set up home health service case discussed with patient in detail all questions answered he is understanding, agreeable, comfortable with the plan of care Total Time Total Time Spent Total Time Spent (In Minutes): 55 minutes Discharge Plan Discharge Items Patient Disposition: Home - Self-Care Reason For Visit: SBO Discharge Diagnosis: Acute appendicitis with perforation and abscess with adhesion causing Small bowel obstruction (SBO) status post Exploratory Laparotomy, Appendectomy, Drainage of Abscess, and Lysis of Adhesion on 09/25/2019 Acute kidney Injury (MG) Electrolyte Abnormality Hypertension Atelectasis of both lungs Localized Pain, Dorsum of the Left Foot, likely from Bone Spur Activity: Per Instructions section Lifting Comment: no more than 20lbs Bathing Comment: may shower; no soaking in tubs Exercise/Sports: Wait until after follow-up appointment Driving/Machine Use: Resume 3 days after discharge Non-emergency contact: Primary Care Provider Call non-emergency contact if: you have any medication questions Follow-up/Referrals: Trev Navarro MD [Primary Care Provider] - 10/05/19 10:40 am Anupam Ivey MD [Physician] - (Please call to schedule follow up within 1 week; your surgical danita will be removed at this appointment) Diet: Regular and Heart Healthy Addtl Attending Provider Instructions: Your abdominal danita will be removed when you follow up in Dr. Ivey's office, anticipate 10-14 days after surgery Call Surgeon or return to the ER immediately if with worsening of symptoms, including abdominal pain, increasing redness/swelling/discharge/pain/bleeding on the incision site, fever/chills, diarrhea, abdominal distention, constipation, leg swelling or pain. Follow up with Primary Care Physician as noted above. Take a probiotic daily for at least 1 month. Drink plenty of fluids. Ambulate frequently at home. Pending Studies at Discharge: No Stand-Alone Forms: [facility] [email or web address], Smoking Cessation Medications and DC Order Prescriptions: New ciprofloxacin HCl [Cipro] 500 mg tablet 500 mg PO BID Qty: 10 RF: 0 Culturelle 10 billion cell capsule 1 cap PO DAILY Qty: 30 RF: 2 Continued lisinopril 40 mg tablet 40 mg PO DAILY RF: 0 Discharge Orders: Discharge Order (Routine); Ordered 10/01/19 Ordered By: Pablo Kerns Admission Data Admit Date/Time: 09/24/19 19:52 Attending Provider: Pablo Kerns Admit Provider: Donnie Burgos Primary Care Provider: Trev Navarro Other Providers: Donnie Burgos ; Gwen Menezes ; Anupam Ivey ; Sam Gutierrez
--- NOTE | 2019-10-07 08:51 | Coding Query ---
CODING QUERY To promote full compliance with coding requirements relating to patient care, provider participation is requested in all cases of superintendent plant uncertainty. Please assist us with the question(s) below: Coding Question(s): The Operative Report on 09/25/19 documents Adhesion and Lysis of Adhesion. The clinical significance of the adhesion with lysis and clarification of the site of the adhesion needs to be clarified. Please answer the following 2 questions below, in your clinical opinion: 1. Please clarify below, the site of the adhesion. ( ) Appendix ( ) Cecum ( ) Other: Please clarify [place] 2. Please clarify below regarding the adhesion with lysis of adhesion for clinical significance. ( ) significant adhesion requiring significant lysis that significantly increased the difficulty and/or length of the procedure. ( ) adhesion with lysis was not significant and did not significantly increase the difficulty and/or length of the procedure. ( ) Other: Please clarify [place] Physician's Response(s): Thank you Jennifer Shaw Principal Diagnosis: "that condition established after study, to be chiefly responsible for occasioning the admission of the patient to the hospital for care." Co-Existing Principal Diagnosis: "when two or more diagnoses equally meet the criteria for principal diagnosis as determined by the circumstances of admission, diagnostic work up, and/or therapy provided, and the Alphabetic Index, Tabular List, or another coding guideline does not provide sequencing direction, any one of the diagnoses may be sequenced first." "When the physician has documented what appears to be a current diagnosis in the body of the record, but has not included the diagnosis in the final diagnostic statement, the physician should be asked whether the diagnosis should be added." (Source [facility] 2 QTR90. p3-4) ROCHELLE
== END 2019-10-01 12:14 | disposition home health service (06) | DRG 339 ==
LOC: ED 16:15 → 3E 19:52 → SUATTDRO 19:52 → 3E 20:46

== ENCOUNTER 2019-11-05 11:48 | Inpatient (IN) ==
--- NOTE | 2019-11-05 12:11 | Emergency Department Note ---
Impression & Plan Sepsis, Abdominal abscess ED Provider Note NAME: AYAAN CINTRON AGE: 79 SEX: M : 1940 ARRIVES VIA: Walk-In INFORMANT: Patient, ED PROVIDER(S): Carlos Enrique Dunn MD Chief Complaint: Fever, abdominal swelling HPI: Patient states that he noticed that he had some abdominal swelling post procedure. The patient states that he did have his appendix removed status post perforated appendix and small bowel obstruction. The patient was discharged on September 30. The patient states that he developed a protrusion in his right lower quadrant after staple removal. Patient states he was having pain but when he would lay down it would improve. He noticed this yesterday. The patient was seen by his primary care provider and prescribed antibiotics. Patient does see Dr. Piper. Patient did take Percocet for pain. The patient denies any nausea vomiting or issues with bowel movements or flatulence. The patient has no urinary symptoms. No blood in the stool or urine. Patient has not taken anything for fever this morning. Patient states that the Percocet did improve his pain but the lump is still present in his right lower quadrant. Patient does not present with cough, chills, coronavirus contacts, coronavirus testing, or travel outside the state. Shortness of breath or cough. Patient is a former smoker from 35 years ago. After discussion with the patient's physician they referred him to the ER this morning. ROS: See HPI for pertinent positives and negatives. A total of 10 systems were review ed and otherwise negative. Past medical history: See below Surgical history: See below Social history: See below Physical Exam: GENERAL: NAD, non-toxic. Wearing glasses and mask. EYE EXAM: Normal conjunctiva. PERRL, no anisocoria and EOM's grossly intact w/o pain. NECK: Supple, no nuchal rigidity, no adenopathy, non-tender. No signs of meningismus. LUNGS: Clear to auscultation. Normal chest wall mechanics. HEART: Cardiac and regular, no MRG. ABDOMEN: Nonreducible mass in the right lower quadrant, nontender, erythema overlying this area, soft elsewhere, no rebound or guarding. Well-healed midline incisional scar without fluctuance or drainage. BACK: No CVA TTP. SKIN: No rashes and no bruising. UPPER EXTREMITIES: Upper extremities are grossly normal. LOWER EXTREMITIES: Grossly normal, no edema. NEURO EXAM: A&O x3, cranial nerves II-XII grossly intact, normal speech, moves all 4 extremities on command w/o issue. Differential diagnoses: Appendicitis, testicular torsion, infections, diverticulitis, UTI, obstruction, mesenteric ischemia, aortic pathology, inflammatory bowel disease, renal colic, PUD, pancreatitis, biliary pathology, hernia, volvulus, constipation, as well as other pathologies. Course: Patient was seen and evaluated the bedside. Full history physical exam was performed. EKG: Indication: Tachycardia Normal sinus rhythm, rate of 93, normal SD and QRS, left axis deviation. Slightly shorter QT compared to September 25, 2019 Imaging Studies: Radiology results as stated below per my review in the radiologist's interpretation: CT angio chest PE protocol CT DOSE: 1615.83 mGycm HISTORY: 79 years-old Male with PE. Acute shortness of breath TECHNIQUE: Multiple CTA images of the chest were obtained after the intravenous administration of 120 ml Optiray 320. Coronal and sagittal MIPS were obtained from the axial data set and were submitted for review. All measurements were obtained according to NASCET criteria. A dose lowering technique was utilized adhering to the principles of ALARA. COMPARISON: CT abdomen pelvis 09/24/2019 FINDINGS: Study limited secondary to respiratory motion. CTA: Moderate cardiomegaly. No pericardial effusion. Extensive coronary artery calcifications. Calcified aortic annulus. There is mild fusiform dilation of the ascending thoracic aorta, 4.1 x 4.0 cm. Extensive calcified plaque of the thoracic aortic arch. No dissection. Descending thoracic aortic tortuosity. Pulmonary artery is dilated, 4.1 cm transversely. The lobar, segmental and subsegmental branches are difficult to evaluate, notably within the lung bases secondary to respiratory motion. No central filling defects identified to suggest pulmonary thromboembolic disease. CT CHEST: Unremarkable thyroid. Nonspecific mildly enlarged subcarinal lymph nodes. Prominent likely physiologic paratracheal lymph nodes. No pneumothorax or pleural effusion. Respiratory motion artifact limits evaluation of the lung parenchyma. Mild linear bibasilar subsegmental opacities suggest atelectasis/scarring. Mild traction bronchiectasis of the medial basal segment right lower lobe. No overt pulmonary edema, airspace consolidation typical for pneumonia, suspicious pulmonary nodule or mass. Mild bronchial wall thickening. No acute processes of the imaged upper abdomen. Indeterminate 1.4 cm soft tissue attenuating nodular structure adjacent to the posterior right hepatic lobe on image 30 series 4 is unchanged from comparison. Soft tissues are unremarkable. Degenerative changes of the spine and shoulders. There are multiple loose bodies involving the bilateral glenohumeral joints. IMPRESSION: 1. Limited study secondary to respiratory motion artifact. No central pulmonary emboli identified. 2. Cardiomegaly with fusiform dilation of the ascending thoracic aorta, 4.1 x 4.0 cm. 3. Dilation of the pulmonary artery suggests pulmonary artery hypertension. 4. No pulmonary edema or airspace consolidation typical for pneumonia. ACT 112: Negative or not required by law. The above report was generated using voice recognition software. It may contain grammatical, syntax or spelling errors. CT OF THE ABDOMEN AND PELVIS WITH CONTRAST CLINICAL HISTORY: incarcerated hernia vs seroma/abscess RLQ COMPARISON STUDY: CT of the abdomen and pelvis September 24, 2019. He be a 2019. TECHNIQUE: Following IV administration of 120 mL of Optiray-320, axial images of the abdomen and pelvis were obtained from the lung bases to the proximal femurs. Images were reviewed in the axial, sagittal, and coronal planes. IV contrast was administered without complication. Automated exposure control was utilized for the study. A dose lowering technique was utilized adhering to the principles of ALARA. FINDINGS: Lung bases are unremarkable. No pneumatosis, free air or portal venous gas is present. The liver, spleen, adrenal glands and pancreas are unremarkable. There is no hydronephrosis. Note is made of a 2.5 cm cyst within lower pole of the right kidney. Multiple additional subcentimeter bilateral renal lesions are too small to characterize. There is no biliary or pancreatic ductal dilatation. There is no evidence for a bowel obstruction. Post operative findings consistent with apparent interval appendectomy are noted. Appendiceal stump is noted that measures 8 mm in caliber. This is fluid-filled. There is no adjacent infiltration. This likely reflect residual appendix. Interval laparotomy is noted. Note is made of a 8.5 x 4.9 cm fluid collection within the right inguinal canal that extends into the superior aspect of the scrotum. This is partially imaged on this exam. There is moderate adjacent inflammation. An adjacent 2.1 x 1.1 cm fluid collection within the proximal right inguinal canals noted. There is a right inguinal hernia. No additional fluid collections are noted. There are no suspicious osseous lesions. There is no lymphadenopathy. IMPRESSION: 1. 8.5 x 4.9 cm fluid collection within the right inguinal canal, extending into the upper scrotum, partially imaged on this exam. Posterior rim enhancement with moderate adjacent inflammation. This likely represents a developing abscess. Adjacent smaller fluid collection within the proximal right inguinal canal may communicate. Right inguinal hernia. 2. Mildly dilated, fluid-filled appendiceal stump without adjacent inflammation. 3. No bowel obstruction. ACT 112: Negative or not required by law. Electronically signed by: Juice Izquierdo M.D. 11/05/2019 3:14 PM Dictated: 11/05/19 1455 Transcribed: 11/05/19 1455 Cardiac monitoring: An order was placed for continuous cardiac monitoring. The monitor shows a rate of 110 with sinus tachycardia rhythm. MDM: Patient was seen and evaluated the bedside. The patient denies any coronavirus contacts but has had fever with associated right lower quadrant pain and swelling. Patient did have a recent ruptured appendicitis that did require drainage and procedure. The patient did have this completed by Dr. Ivey. Patient did a blood work completed along with sepsis order set IV fluids antipyretics and empiric antibiotics with Zosyn. Patient's heart rate did improve with IV fluids and antipyretics. Patient never complained of any shortness of breath or chest pain. Patient is a former smoker oxygen saturation in the lower 90s. Patient's EKG does not show evidence of right-sided heart strain. Patient was did have a CT angiography of the chest ordered in addition to the CAT scan of the abdomen and pelvis. With blood cell count of 18,000. Patient CT angiogram does show incidental finding of slightly enlarged aorta but no evidence of any PE. Slightly motion graded exam. The patient is currently 97% on room air. CT abdomen pelvis does show an likely developing abscess at 8.5 x 5 cm. I did speak with the on-call general surgeon. I did discuss the patient's results through the telephone within the room. Patient has no change in symptoms and is currently without any pain. Additional IV fluids were ordered. Rapid COVID testing was ordered. I did speak with Dr. Ivey. He is to come and evaluate the patient. Patient was seen and evaluated the bedside. The patient was scheduled for the OR for drainage of his abdominal abscess. Patient does have a normal lactic and the patient's heart rate improved with IV fluids and antipyretics. Past Med/Surg History Medical History Gout HLD (hyperlipidemia) History of hyperlipidemia but does not take cholesterol medication Hypertension Surgical History History of tonsillectomy and adenoidectomy Hx of tonsillectomy age 5 Family History Father , 62 Myocardial infarction Coronary heart disease Social History Preferred Language: Polish Communication Ability: Effective Cooperative Manager Required: No Beliefs That Will Affect Care: None marital status: Single Current Living Situation: Alone Feels Safe at Home: Yes Smoking Status: Former smoker packs per day: 4 ; Number of Years Since Quit: 38 ; Second Hand Exposure: No ; Hx Alcohol Use: Yes Alcohol type: beer Alcohol type Comment: 4 beers, last beer 1 week ago Alcohol Intake Frequency: Daily Hx Substance Use: No Allergies Allergies Allergy/AdvReac Type Severity Reaction Status Date / Time ibuprofen [From Motrin] Allergy Unknown Hives Verified 11/05/19 13:59 Home Meds Home Medications Medication Instructions Recorded Confirmed lisinopril 40 mg PO DAILY 09/24/19 11/05/19 hydrocodone-acetaminophen 1 tab PO Q6H 11/05/19 11/05/19 indomethacin 25 mg PO TID 11/05/19 11/05/19 metronidazole 500 mg PO BID 11/05/19 11/05/19 Previous Rx's Medication Instructions Recorded Lactobacillus rhamnosus GG 1 cap PO DAILY #30 cap 10/01/19 [Culturelle] ciprofloxacin HCl [Cipro] 500 mg PO BID #10 tab 10/01/19 Results & Data (ED) Vital Signs Vital Signs - 24 hr 11/05/19 11:50 11/05/19 14:00 11/05/19 14:09 Temperature 37.6 C H Temperature Source Oral Pulse Rate 114 H 74 75 Pulse Rate [Apical] 78 Pulse Rate from SpO2 Sensor 75 75 Pulse Rhythm Regular Pulse Rhythm [Apical] Regular Pulse Strength Normal Respiratory Rate 20 18 Respiratory Effort / Characteristics Non-Labored Spontaneous Non-Labored Spontaneous Respiratory Depth Normal Normal Respiratory Pattern Regular Regular Blood Pressure 157/78 H 151/73 H Blood Pressure [Right Arm] 151/73 H Blood Pressure Mean 104 109 Blood Pressure Mean [Right Arm] 99 Blood Pressure Position Sitting Pulse Oximetry 90 95 94 Oxygen Delivery Method Room Air Room Air Sepsis Recent Fever Within 48 Hours Yes Sepsis New/Unexplained Change in Mental Status No Sepsis Action Taken by Nursing No Action Required 11/05/19 14:45 11/05/19 15:04 11/05/19 16:37 Temperature Temperature Source Pulse Rate 93 H 94 H Pulse Rate [Apical] 69 Pulse Rate from SpO2 Sensor Pulse Rhythm Pulse Rhythm [Apical] Pulse Strength Respiratory Rate 19 15 14 Respiratory Effort / Characteristics Respiratory Depth Respiratory Pattern Blood Pressure Blood Pressure [Right Arm] 171/86 H Blood Pressure Mean Blood Pressure Mean [Right Arm] 114 Blood Pressure Position Pulse Oximetry 94 97 95 Oxygen Delivery Method Room Air Sepsis Recent Fever Within 48 Hours Sepsis New/Unexplained Change in Mental Status Sepsis Action Taken by Alf Medications Current Medication List: was personally reviewed by me Laboratory Data Attestation: I reviewed the patient's lab results. Result diagrams: 11/05/19 12:07 11/05/19 13:02 Lab Results 11/05/19 11/05/19 11/05/19 Range/Units 12:07 12:07 12:55 WBC 18.95 H (4.8-10.8) K/uL RBC 4.35 L (4.7-6.1) M/uL Hgb 13.2 L (14.0-18.0) g/dL Hct 40.1 L (42-52) % MCV 92.2 (80-100) fL MCH 30.3 (25-34) pg MCHC 32.9 (32-36) g/dL RDW Std Deviation 45.6 (36.4-46.3) fL RDW Coeff of Kathy 13.5 (11.5-14.5) % Plt Count 382 (130-400) K/uL MPV 9.7 (7.4-10.4) fL Immature Gran % (Auto) 0.6 % Neut % (Auto) 74.9 % Lymph % (Auto) 13.3 % [place] % (Auto) 10.3 % Eos % (Auto) 0.7 % Baso % (Auto) 0.2 % Immature Gran # (Auto) 0.12 H (0.00-0.02) K/uL Neut # (Auto) 14.17 H (1.4-6.5) K/uL Lymph # (Auto) 2.52 (1.2-3.4) K/uL [place] # (Auto) 1.96 H (0.11-0.59) K/uL Eos # (Auto) 0.14 (0-0.5) K/uL Baso # (Auto) 0.04 (0-0.2) K/uL PT 11.4 (9.0-12.0) Seconds INR 1.1 (0.9-1.1) APTT 26.2 (21.0-31.0) Seconds PTT Ratio 0.9 Sodium (136-145) mmol/L Potassium (3.5-5.1) mmol/L Chloride (98-107) mmol/L Carbon Dioxide (21-32) mmol/L Anion Gap (3-11) BUN (7-18) mg/dl Creatinine (0.6-1.4) mg/dl Est Cr Clr Drug Dosing ml/min Est GFR ( Amer) Est GFR (Non-Af Amer) BUN/Creatinine Ratio (10-20) Glucose (70-99) mg/dl Lactate 1.4 (0.4-2.0) mmol/L Calcium (8.5-10.1) mg/dl Magnesium (1.8-2.4) mg/dl Total Bilirubin (0.2-1) mg/dl AST (15-37) U/L ALT (12-78) U/L Alkaline Phosphatase (45-117) U/L Total Protein (6.4-8.2) gm/dl Albumin (3.4-5.0) gm/dl Globulin (2.5-4.0) gm/dl Albumin/Globulin Ratio (0.9-2) Procalcitonin (0-0.5) ng/ml Specimen Hemolysis 11/05/19 11/05/19 Range/Units 13:02 13:02 WBC (4.8-10.8) K/uL RBC (4.7-6.1) M/uL Hgb (14.0-18.0) g/dL Hct (42-52) % MCV (80-100) fL MCH (25-34) pg MCHC (32-36) g/dL RDW Std Deviation (36.4-46.3) fL RDW Coeff of Kathy (11.5-14.5) % Plt Count (130-400) K/uL MPV (7.4-10.4) fL Immature Gran % (Auto) % Neut % (Auto) % Lymph % (Auto) % [place] % (Auto) % Eos % (Auto) % Baso % (Auto) % Immature Gran # (Auto) (0.00-0.02) K/uL Neut # (Auto) (1.4-6.5) K/uL Lymph # (Auto) (1.2-3.4) K/uL [place] # (Auto) (0.11-0.59) K/uL Eos # (Auto) (0-0.5) K/uL Baso # (Auto) (0-0.2) K/uL PT (9.0-12.0) Seconds INR (0.9-1.1) APTT (21.0-31.0) Seconds PTT Ratio Sodium 133 L (136-145) mmol/L Potassium 4.6 (3.5-5.1) mmol/L Chloride 100 (98-107) mmol/L Carbon Dioxide 27 (21-32) mmol/L Anion Gap 6.0 (3-11) BUN 19 H (7-18) mg/dl Creatinine 0.95 (0.6-1.4) mg/dl Est Cr Clr Drug Dosing 70.6 ml/min Est GFR ( Amer) 87.9 Est GFR (Non-Af Amer) 75.8 BUN/Creatinine Ratio 20.4 H (10-20) Glucose 124 H (70-99) mg/dl Lactate (0.4-2.0) mmol/L Calcium 9.2 (8.5-10.1) mg/dl Magnesium 2.3 (1.8-2.4) mg/dl Total Bilirubin 0.7 (0.2-1) mg/dl AST 19 (15-37) U/L ALT 33 (12-78) U/L Alkaline Phosphatase 83 (45-117) U/L Total Protein 7.6 (6.4-8.2) gm/dl Albumin 2.9 L (3.4-5.0) gm/dl Globulin 4.7 H (2.5-4.0) gm/dl Albumin/Globulin Ratio 0.6 L (0.9-2) Procalcitonin 0.17 (0-0.5) ng/ml Specimen Hemolysis Administered Medications Vancomycin HCl 2,250 mg/ (Sodium Chloride) 545 mls @ 200 mls/hr IV NOW ONE Stop: 11/05/19 18:08 Last Admin: 11/05/19 16:37 Dose: 200 mls/hr Documented by: [id number] Ioversol (Optiray 320 125ml) 120 ml IV ONCE PRN PRN Reason: Interaction Checking Stop: 11/09/19 14:34 Last Admin: 11/05/19 14:36 Dose: 120 ml Documented by: [id number] Discontinued Medications Acetaminophen (Tylenol) 1,000 mg PO NOW STA Stop: 11/05/19 12:30 Last Admin: 11/05/19 13:19 Dose: 1,000 mg Documented by: [id number] Sodium Chloride (Nss 1000ml) 1,000 mls @ 999 mls/hr IV .Q1H1M ONE Stop: 11/05/19 13:29 Last Infusion: 11/05/19 14:28 Dose: 0 mls/hr Documented by: [id number] Admin: 11/05/19 13:19 Dose: 999 mls/hr Documented by: [id number] Piperacillin Sod/Tazobactam Sod (Zosyn) 4.5 gm in 120 mls @ 240 mls/hr IV NOW ONE Stop: 11/05/19 12:58 Last Infusion: 11/05/19 14:02 Dose: 0 mls/hr Documented by: [id number] Admin: 11/05/19 13:19 Dose: 240 mls/hr Documented by: [id number] Sodium Chloride (Nss) 500 mls @ 999 mls/hr IV .Q31M ONE Stop: 11/05/19 15:55 Last Infusion: 11/05/19 17:09 Dose: 0 mls/hr Documented by: [id number] Admin: 11/05/19 16:37 Dose: 999 mls/hr Documented by: [id number] Discharge Plan Visit Data Chief Complaint: Infection Stated Complaint: POST SURGICAL., LUMP ED Provider: Carlos Enrique Dunn Discharge Problem: Sepsis, Abdominal abscess Discharge Instructions Interventions: ED Discharge Assessment Last Done: 11/05/19 17:29 Forms Stand Alone Forms: Loftware Prescriptions Prescriptions: No Action hydrocodone-acetaminophen 5-325 mg tablet 1 tab PO Q6H RF: 0 metronidazole 500 mg tablet 500 mg PO BID RF: 0 indomethacin 25 mg capsule 25 mg PO TID RF: 0 lisinopril 40 mg tablet 40 mg PO DAILY RF: 0 ciprofloxacin HCl [Cipro] 500 mg tablet 500 mg PO BID Qty: 10 RF: 0 Culturelle 10 billion cell capsule 1 cap PO DAILY Qty: 30 RF: 2 Referrals Referrals: Trev Navarro MD [Primary Care Provider] - Discharge Problem: Sepsis Qualifiers: Sepsis type: sepsis due to unspecified organism Sepsis acute organ dysfunction status: without acute organ dysfunction Qualified Code(s): A41.9 - Sepsis, unspecified organism
[2019-11-05] MEDS ORDERED: PIPERACILL/TAZOBAC CONSULT ACTIVE PRN ×3 (12:29→19:55)
[2019-11-05] MEDS ORDERED: SODIUM CHLORIDE 0.9% 1000ML 1,000 ML IV ONE (12:29)
[2019-11-05] MEDS ORDERED: ACETAMINOPHEN 500 MG TAB PO STA (12:29)
[2019-11-05] MEDS ORDERED: PIPERACILLIN/TAZOBACTAM 4.5 GM/120 ML BAG IV ONE ×2 (12:29→17:36)
[2019-11-05 12:36] LABS: Basophils # (auto) 0.04 K/uL (0-0.2); Basophils % (auto) 0.2 %; Eosinophils # (auto) 0.14 K/uL (0-0.5); Eosinophils % (auto) 0.7 %; Hematocrit (blood only) 40.1 % (42-52); Hemoglobin 13.2 g/dL (14.0-18.0); Immature Granulocytes # (auto) 0.12 K/uL (0.00-0.02); Immature Granulocytes % (auto) 0.6 %; Lymphocytes # (auto) 2.52 K/uL (1.2-3.4); Lymphocytes % (auto) 13.3 %; Mean Corpuscular Hemoglobin 30.3 pg (25-34); Mean Corpuscular Hgb Conc 32.9 g/dL (32-36); Mean Corpuscular Volume 92.2 fL (80-100); Mean Platelet Volume 9.7 fL (7.4-10.4); Monocytes # (auto) 1.96 K/uL (0.11-0.59); Monocytes % (auto) 10.3 %; Neutrophils # (auto) 14.17 K/uL (1.4-6.5); Neutrophils % (auto) 74.9 %; Platelet Count 382 K/uL (130-400); RDW Coefficient of Variation 13.5 % (11.5-14.5); RDW Standard Deviation 45.6 fL (36.4-46.3); Red Blood Count 4.35 M/uL (4.7-6.1); White Blood Count 18.95 K/uL (4.8-10.8)
--- NOTE | 2019-11-05 12:42 | XRay Report ---
XR chest 1V portable CLINICAL HISTORY: SEPSIS COMPARISON STUDY: 09/24/2019 FINDINGS: The bones soft tissues and hemidiaphragms are normal. The cardiomediastinal silhouette is n ormal. The lungs are clear. The pulmonary vasculature is normal. IMPRESSION: Negative chest. ACT 112: Negative or not required by law. The above report was generated using voice recognition software. It may contain grammatical, syntax or spelling errors. Electronically signed by: Rui Raya M.D. 11/05/2019 12:41 PM
[2019-11-05 12:52] LABS: INR 1.1 (0.9-1.1); Partial Thromboplastin Ratio 0.9; Partial Thromboplastin Time 26.2 Seconds (21.0-31.0); Prothrombin Time 11.4 Seconds (9.0-12.0)
[2019-11-05 13:38] LABS: Albumin Globulin Ratio 0.6 (0.9-2); Albumin Level 2.9 gm/dl (3.4-5.0); BUN Creatinine Ratio 20.4 (10-20); Bilirubin,Total 0.7 mg/dl (0.2-1); Calcium 9.2 mg/dl (8.5-10.1); Creatinine Clr Calc Pharmacy 70.6 ml/min; Est GFR (African American) 87.9; Est GFR (Non-African American) 75.8; Globulin 4.7 gm/dl (2.5-4.0); Magnesium 2.3 mg/dl (1.8-2.4); Potassium 4.6 mmol/L (3.5-5.1); Total Protein 7.6 gm/dl (6.4-8.2)
[2019-11-05] MEDS ORDERED: OPTIRAY 320 125ml IV PRN (14:35)
--- NOTE | 2019-11-05 14:58 | CT Scan Report ---
CT angio chest PE protocol CT DOSE: 1615.83 mGycm HISTORY: 79 years-old Male with PE. Acute shortness of breath TECHNIQUE: Multiple CTA images of the chest were obtained after the intravenous administration of 120 ml Optiray 320. Coronal and sagittal MIPS were obtained from the axial data set and were submitted for review. All measurements were obtained according to NASCET criteria. A dose lowering technique w as utilized adhering to the principles of ALARA. COMPARISON: CT abdomen pelvis 09/24/2019 FINDINGS: Study limited secondary to respiratory motion. CTA: Moderate cardiomegaly. No pericardial effusion. Extensive coronary artery calcifications. Calcified a ortic annulus. There is mild fusiform dilation of the ascending thoracic aorta, 4.1 x 4.0 cm. Extensi ve calcified plaque of the thoracic aortic arch. No dissection. Descending thoracic aortic tortuosity . Pulmonary artery is dilated, 4.1 cm transversely. The lobar, segmental and subsegmental branches ar e difficult to evaluate, notably within the lung bases secondary to respiratory motion. No central fi lling defects identified to suggest pulmonary thromboembolic disease. CT CHEST: Unremarkable thyroid. Nonspecific mildly enlarged subcarinal lymph nodes. Prominent likely physiologi c paratracheal lymph nodes. No pneumothorax or pleural effusion. Respiratory motion artifact limits e valuation of the lung parenchyma. Mild linear bibasilar subsegmental opacities suggest atelectasis/sc arring. Mild traction bronchiectasis of the medial basal segment right lower lobe. No overt pulmonary edema, airspace consolidation typical for pneumonia, suspicious pulmonary nodule or mass. Mild bronc hial wall thickening. No acute processes of the imaged upper abdomen. Indeterminate 1.4 cm soft tissue attenuating nodular structure adjacent to the posterior right hepatic lobe on image 30 series 4 is unchanged from compari son. Soft tissues are unremarkable. Degenerative changes of the spine and shoulders. There are multip le loose bodies involving the bilateral glenohumeral joints. IMPRESSION: 1. Limited study secondary to respiratory motion artifact. No central pulmonary emboli identified. 2. Cardiomegaly with fusiform dilation of the ascending thoracic aorta, 4.1 x 4.0 cm. 3. Dilation of the pulmonary artery suggests pulmonary artery hypertension. 4. No pulmonary edema or airspace consolidation typical for pneumonia. ACT 112: Negative or not required by law. The above report was generated using voice recognition software. It may contain grammatical, syntax o r spelling errors. Electronically signed by: Shmuel Gutiérrez M.D. 11/05/2019 2:57 PM
--- NOTE | 2019-11-05 15:15 | CT Scan Report ---
CT OF THE ABDOMEN AND PELVIS WITH CONTRAST CLINICAL HISTORY: incarcerated hernia vs seroma/abscess RLQ COMPARISON STUDY: CT of the abdomen and pelvis September 24, 2019. He be a 19 2019. TECHNIQUE: Following IV administration of 120 mL of Optiray-320, axial images of the abdomen and pelv is were obtained from the lung bases to the proximal femurs. Images were reviewed in the axial, sagit holli, and coronal planes. IV contrast was administered without complication. Automated exposure contr ol was utilized for the study. A dose lowering technique was utilized adhering to the principles of ALARA. FINDINGS: Lung bases are unremarkable. No pneumatosis, free air or portal venous gas is present. The liver, spleen, adrenal glands and pancreas are unremarkable. There is no hydronephrosis. Note is made of a 2.5 cm cyst within lower pole of the right kidney. Multiple additional subcentimeter bilateral renal lesions are too small to characterize. There is no biliary or pancreatic ductal dilatation. The re is no evidence for a bowel obstruction. Post operative findings consistent with apparent interval appendectomy are noted. Appendiceal stump is noted that measures 8 mm in caliber. This is fluid-fille d. There is no adjacent infiltration. This likely reflect residual appendix. Interval laparotomy is n oted. Note is made of a 8.5 x 4.9 cm fluid collection within the right inguinal canal that extends in to the superior aspect of the scrotum. This is partially imaged on this exam. There is moderate adjac ent inflammation. An adjacent 2.1 x 1.1 cm fluid collection within the proximal right inguinal canals noted. There is a right inguinal hernia. No additional fluid collections are noted. There are no elena picious osseous lesions. There is no lymphadenopathy. IMPRESSION: 1. 8.5 x 4.9 cm fluid collection within the right inguinal canal, extending into the upper scrotum, p artially imaged on this exam. Posterior rim enhancement with moderate adjacent inflammation. This lik jamil represents a developing abscess. Adjacent smaller fluid collection within the proximal right ingu inal canal may communicate. Right inguinal hernia. 2. Mildly dilated, fluid-filled appendiceal stump without adjacent inflammation. 3. No bowel obstruction. ACT 112: Negative or not required by law. Electronically signed by: Juice Izquierdo M.D. 11/05/2019 3:14 PM
[2019-11-05] MEDS ORDERED: VANCOMYCIN CONSULT ACTIVE PRN (15:25)
[2019-11-05] MEDS ORDERED: VANCOMYCIN HCL 2,250 MG in SODIUM CHLORIDE 0.9% 500 ML IV ONE (15:25)
[2019-11-05] MEDS ORDERED: SODIUM CHLORIDE 0.9% 500 ML IV ONE (15:25)
--- NOTE | 2019-11-05 17:24 | Surgery Consultation ---
Date of Consultation November 05, 2019 Assessment & Plan (1) Abscess of right groin: pt is a 79 year-old male who presents to ER with one day history swelling right groin, IMP: right groin abscess, Plan, I recommend to do I & D right groin abscess, possible, exploratory laparotomy, bowel resection, stoma, repair right inguinal hernia, D/W benefits, risks and alternatives of the surgery, the risks - infection, bleeding, injury bowel, [place], sepsis, , pt understood, he agrees with the surgery, I answered all questions, pre-op iv antibiotic History of Present Illness History of Present Illness Chief Complaint: Fever, abdominal swelling HPI: Patient states that he noticed that he had some abdominal swelling post procedure. The patient states that he did have his appendix removed status post perforated appendix and small bowel obstruction. The patient was discharged on September 30. The patient states that he developed a protrusion in his right lower quadrant after staple removal. Patient states he was having pain but when he would lay down it would improve. He noticed this yesterday. The patient was seen by his primary care provider and prescribed antibiotics. Patient does see Dr. Piper. Patient did take Percocet for pain. The patient denies any nausea vomiting or issues with bowel movements or flatulence. The patient has no urinary symptoms. No blood in the stool or urine. Patient has not taken anything for fever this morning. Patient states that the Percocet did improve his pain but the lump is still present in his right lower quadrant. Patient does not present with cough, chills, coronavirus contacts, coronavirus testing, or travel outside the state. Shortness of breath or cough. Patient is a former smoker from 35 years ago. After discussion with the patient's physician they referred him to the ER this morning. I ( Anupam Ivey MD ) got a call consult right groin abscess, I reviewed pt's H/P, labs, CT scan with pt, ROS: See HPI for pertinent positives and negatives. A total of 10 systems were reviewed and otherwise negative. Past medical history: See below Surgical history: See below Social history: See below Allergies Allergy/AdvReac Type Severity Reaction Status Date / Time ibuprofen [From Motrin] Allergy Unknown Hives Verified 11/05/19 13:59 Home Medications Home Medications Medication Instructions Recorded Confirmed Type lisinopril 40 mg PO DAILY 09/24/19 11/05/19 History Lactobacillus rhamnosus GG 1 cap PO DAILY #30 cap 10/01/19 11/05/19 Rx [Culturelle] ciprofloxacin HCl [Cipro] 500 mg PO BID #10 tab 10/01/19 11/05/19 Rx hydrocodone-acetaminophen 1 tab PO Q6H 11/05/19 11/05/19 History indomethacin 25 mg PO TID 11/05/19 11/05/19 History metronidazole 500 mg PO BID 11/05/19 11/05/19 History Patient History Medical History Gout HLD (hyperlipidemia) History of hyperlipidemia but does not take cholesterol medication Hypertension Surgical History History of tonsillectomy and adenoidectomy Hx of tonsillectomy age 5 Family History Father , 62 Myocardial infarction Coronary heart disease Social History Preferred Language: Chinese Communication Ability: Effective Research Development Director Required: No Beliefs That Will Affect Care: None marital status: Single Current Living Situation: Alone Feels Safe at Home: Yes Smoking Status: Former smoker packs per day: 4 ; Number of Years Since Quit: 38 ; Second Hand Exposure: No ; Hx Alcohol Use: Yes Alcohol type: beer Alcohol type Comment: 4 beers, last beer 1 week ago Alcohol Intake Frequency: Daily Hx Substance Use: No Review of Systems Review of Systems: All systems reviewed & are unremarkable except as noted in HPI & below Constitutional: as per Subjective / HPI Eyes: as per Subjective / HPI Ear, Nose, Mouth, Throat: as per Subjective / HPI Respiratory: as per Subjective / HPI Cardiovascular: Additional Comments: HTN Gastrointestinal: S/P appendectomy for perforated appendicitis, SBO, Genitourinary: + problem reported (MG) Musculoskeletal: as per Subjective / HPI Integumentary: as per Subjective / HPI Neurologic: as per Subjective / HPI Psychiatric: as per Subjective / HPI Endocrine: as per Subjective / HPI Hematologic / Lymphatic: as per Subjective / HPI Allergy / Immunological: as per Subjective / HPI Physical Exam Constitutional: WD/WN, vitals as above well developed and well nourished Eyes: PERRL, conjunctivae normal, anicteric sclerae ENMT: external ear and nose normal, oropharynx normal Neck: trachea midline, no thyromegaly Respiratory: normal respiratory effort, lungs clear to auscultation normal respiratory effort Cardiovascular: RRR, no murmur, no edema Rate/Rhythm: regular rate and regular rhythm Heart Sounds: normal S1 and normal S2 Gastrointestinal (Abdomen): normal bowel sounds, soft, nontender, no hepatosplenomegaly Percussion/Palpation: abdomen soft some swelling on right groin with redness, tenderness, size [id number], BS + Musculoskeletal: no cyanosis or clubbing, extremities motor strength 5/5 Skin: no rashes, warm and dry Neurologic: patellar DTR's 2+ bilat, sensation intact Psychiatric: Orientation: alert Results & Data Vital Signs (Past 12 Hours) Vital Signs Temp Pulse Pulse Resp BP BP Pulse Ox 11/05/19 16:37 69 14 171/86 H 95 11/05/19 15:04 94 H 15 97 11/05/19 14:45 93 H 19 94 11/05/19 14:09 75 94 11/05/19 14:00 74 78 18 151/73 H 151/73 H 95 11/05/19 11:50 37.6 C H 114 H 20 157/78 H 90 Laboratory Results Abnormal lab results 11/05/19 11/05/19 Range/Units 12:07 13:02 WBC 18.95 H (4.8-10.8) K/uL RBC 4.35 L (4.7-6.1) M/uL Hgb 13.2 L (14.0-18.0) g/dL Hct 40.1 L (42-52) % Immature Gran # (Auto) 0.12 H (0.00-0.02) K/uL Neut # (Auto) 14.17 H (1.4-6.5) K/uL [place] # (Auto) 1.96 H (0.11-0.59) K/uL Sodium 133 L (136-145) mmol/L BUN 19 H (7-18) mg/dl BUN/Creatinine Ratio 20.4 H (10-20) Glucose 124 H (70-99) mg/dl Albumin 2.9 L (3.4-5.0) gm/dl Globulin 4.7 H (2.5-4.0) gm/dl Albumin/Globulin Ratio 0.6 L (0.9-2) Diagnostic Findings CT OF THE ABDOMEN AND PELVIS WITH CONTRAST CLINICAL HISTORY: incarcerated hernia vs seroma/abscess RLQ COMPARISON STUDY: CT of the abdomen and pelvis September 24, 2019. He be a 2019. TECHNIQUE: Following IV administration of 120 mL of Optiray-320, axial images of the abdomen and pelvis were obtained from the lung bases to the proximal femurs. Images were reviewed in the axial, sagittal, and coronal planes. IV contrast was administered without complication. Automated exposure control was utilized for the study. A dose lowering technique was utilized adhering to the principles of ALARA. FINDINGS: Lung bases are unremarkable. No pneumatosis, free air or portal venous gas is present. The liver, spleen, adrenal glands and pancreas are unremarkable. There is no hydronephrosis. Note is made of a 2.5 cm cyst within lower pole of the right kidney. Multiple additional subcentimeter bilateral renal lesions are too small to characterize. There is no biliary or pancreatic ductal dilatation. There is no evidence for a bowel obstruction. Post operative findings consistent with apparent interval appendectomy are noted. Appendiceal stump is noted that measures 8 mm in caliber. This is fluid-filled. There is no adjacent infiltration. This likely reflect residual appendix. Interval laparotomy is noted. Note is made of a 8.5 x 4.9 cm fluid collection within the right inguinal canal that extends into the superior aspect of the scrotum. This is partially imaged on this exam. There is moderate adjacent inflammation. An adjacent 2.1 x 1.1 cm fluid collection within the proximal right inguinal canals noted. There is a right inguinal hernia. No additional fluid collections are noted. There are no suspicious osseous lesions. There is no lymphadenopathy. IMPRESSION: 1. 8.5 x 4.9 cm fluid collection within the right inguinal canal, extending into the upper scrotum, partially imaged on this exam. Posterior rim enhancement with moderate adjacent inflammation. This likely represents a developing abscess. Adjacent smaller fluid collection within the proximal right inguinal canal may communicate. Right inguinal hernia. 2. Mildly dilated, fluid-filled appendiceal stump without adjacent inflammation. 3. No bowel obstruction.
--- NOTE | 2019-11-05 17:29 | History & Physical Bridge Note ---
Date of Service November 05, 2019 History & Physical Bridge Note I have examined the patient, reviewed the History & Physical and in the interval since the performance of the History & Physical I have noted the following changes of clinical significance: no changes noted
[2019-11-05] MEDS ORDERED: ROCURONIUM BROMIDE 10 MG/ML 5 ML VIAL ONE (17:58)
[2019-11-05] MEDS ORDERED: SUCCINYLCHOLINE CHLORIDE 20 MG/ML 10 ML VIAL IV ONE (17:58)
[2019-11-05] MEDS ORDERED: fentaNYL citrate 100 MCG/2 ML VIAL ONE (17:58)
[2019-11-05] MEDS ORDERED: LIDOCAINE HCL 2% 2 ML VIAL/AMP(20MG/ML) INFIL ONE (17:58)
[2019-11-05] MEDS ORDERED: PHENYLEPHRINE 100MCG/ML 5ML SYR ONE (17:58)
[2019-11-05] MEDS ORDERED: ePHEDrine sulfate 50 MG/ML SYR ONE (17:58)
[2019-11-05] MEDS ORDERED: PROPOFOL IV EMULSION 10 MG/ML 20 ML VIAL IV ONE (17:58)
[2019-11-05] MEDS ORDERED: LARYING-O-JET KIT (LTA) ONE (17:58)
[2019-11-05] MEDS ORDERED: ONDANSETRON INJ 2 MG/ML 2 ML VIAL ONE (17:58)
[2019-11-05] MEDS ORDERED: BACITRACIN OINT 15 GM TUBE ONE (18:03)
[2019-11-05] MEDS ORDERED: BUPIVACAINE 0.5 % 5 MG/1 ML MPF 30ML VIAL ONE (18:03)
[2019-11-05] MEDS ORDERED: LIDOCAINE HCL 1% 20 ML VIAL ONE (18:03)
[2019-11-05] MEDS ORDERED: fentaNYL citrate 100 MCG/2 ML VIAL IV PRN (18:07)
[2019-11-05] MEDS ORDERED: ATROPINE SULFATE 0.1 MG/ML 10ML SYR IV PRN (18:07)
[2019-11-05] MEDS ORDERED: ONDANSETRON INJ 2 MG/ML 2 ML VIAL IV PRN (18:07)
[2019-11-05] MEDS ORDERED: ePHEDrine sulfate 50 MG/ML AMP IV PRN (18:07)
[2019-11-05] MEDS ORDERED: HYDROmorphone INJ 2 MG/ML SYR/VIAL IV PRN (18:07)
--- NOTE | 2019-11-05 18:07 | Anesthesiology Consultation ---
Date of Service November 05, 2019 Assessment & Plan ASA ASA3 Proposed Anesthesia Anesthesia Type: General Risk / Benefits Reviewed With: PT / POA / Parent / Guardian, Accepts Plan and Informed Consent Obtained History Surgery Operation Date: 11/05/19 12:45 Proposed Procedures p Incision and Drainage Right Groin Janet Ivey MD Height/Weight Height: 5 ft 8.5 in Weight: 93.6 kg Allergies Allergy/AdvReac Type Severity Reaction Status Date / Time ibuprofen [From Motrin] Allergy Unknown Hives Verified 11/05/19 13:59 Medications Home Medications Medication Instructions Recorded Confirmed Last Taken lisinopril 40 mg PO DAILY 09/24/19 11/05/19 11/04/19 Lactobacillus rhamnosus GG 1 cap PO DAILY #30 cap 10/01/19 11/05/19 11/04/19 [Culturelle] ciprofloxacin HCl [Cipro] 500 mg PO BID #10 tab 10/01/19 11/05/19 11/04/19 hydrocodone-acetaminophen 1 tab PO Q6H 11/05/19 11/05/19 11/04/19 indomethacin 25 mg PO TID 11/05/19 11/05/19 11/04/19 metronidazole 500 mg PO BID 11/05/19 11/05/19 11/04/19 Active Medications Generic Name Dose Route Start Last Admin Trade Name Freq PRN Reason Stop Dose Admin Vancomycin HCl 2,250 mg/ 545 mls @ 200 mls/hr 11/05/19 15:25 11/05/19 16:37 Sodium Chloride IV 11/05/19 18:08 200 mls/hr NOW ONE Administration Ioversol 120 ml 11/05/19 14:35 11/05/19 14:36 Optiray 320 125ml IV 11/09/19 14:34 120 ml ONCE PRN Administration Interaction Checking NPO Date Last Intake of Fluids: 11/05/19 Time Last Intake of Fluids: 11:00 Last Intake of Fluids Comment: almond milk Date Last Intake of Solids: 11/04/19 Time Last Intake of Solids: 21:00 Past Medical History Medical History Gout HLD (hyperlipidemia) History of hyperlipidemia but does not take cholesterol medication Hypertension Exercise / Class Metabolic Activity II 4-5 Yardwork/Stairs/Walk up hill Past Family History Family History Father , 62 Myocardial infarction Coronary heart disease Past Surgical History Surgical History History of tonsillectomy and adenoidectomy Hx of tonsillectomy age 5 Past Anesthesia History No Hx of Anesthesia Complications and No Family Hx of Anesthesia Complications History of PONV No Hx of PONV and No Hx of Motion Sickness Social History Smoking Status: Former smoker Hx Alcohol Use: Yes Alcohol type: beer alcohol intake frequency: 3 or more drinks per day Hx Substance Use: No Review of Systems denies fever/cough/ colds/ chest pain/ SOB/ ANAMARIA Constitutional: no fever and no chills Respiratory: no cough and no dyspnea denies ANAMARIA Cardiovascular: no chest pain and no dyspnea on exertion Physical Exam Vital Signs Last Vital Signs Temp 37.9 C H 11/05/19 18:02 Pulse 85 11/05/19 18:02 Resp 18 11/05/19 18:02 BP 174/100 H 11/05/19 18:02 Pulse Ox 95 11/05/19 18:02 ENMT Mouth: no TMJ abnormality and no dentition abnormality Thyromental Distance: > or= 3.5 Finger Breadths Mallampati Class: II Neck neck extension not limited Respiratory normal respiratory effort; no respiratory distress Auscultation: lungs clear to auscultation bilaterally Cardiovascular Rate/Rhythm: regular rate and regular rhythm Neurologic moves all extremities Psychiatric Orientation: alert and oriented x 3 Testing Laboratory Results 11/05/19 12:07 11/05/19 13:02 PT 11.4 Seconds (9.0-12.0) 11/05/19 12:07 INR 1.1 (0.9-1.1) 11/05/19 12:07 APTT 26.2 Seconds (21.0-31.0) 11/05/19 12:07
[2019-11-05] MEDS ORDERED: VANCOMYCIN HCL 1000MG/20ML VIAL ONE (18:46)
--- NOTE | 2019-11-05 18:54 | Post Operative Brief Note ---
Immediate Post Op Note v1 Date of Surgery November 05, 2019 Pre & Post Diagnosis Operation Date: 11/05/19 12:45 Pre-Op Diagnosis: Abscess of right groin Post-Op Diagnosis: Abscess of right groin I identified the patient and participated in the time-out.: Yes Procedure Operation Date: 11/05/19 12:45 Actual Procedures p Incision and Drainage Right Groin Abcess(Right) - Anupam Ivey MD Surgeon Anupam Ivey MD Embossing Calender Operator emergency medical technician Estimated Blood Loss 5 Findings Consistent with Post-Op Diagnosis right groin abscess, size 8x8cm, wound culture sent, Fluids 700ml Specimens wound culture Drains Mejia Catheter Anesthesia Type General Complications none Disposition Accompanied Patient To Recovery: Yes Disposition: Recovery Room Overlapping Procedure I was immediately available: during the entire case.
[2019-11-05] MEDS ORDERED: HYDROmorphone INJ 0.5 MG/0.5 ML SYR IV PRN (19:55)
[2019-11-05] MEDS ORDERED: PERCOCET 5/325MG HOMEPACK PO ONE (19:55)
[2019-11-05] MEDS ORDERED: NORCO 5/325MG HOMEPACK PO SCH (19:55)
[2019-11-05] MEDS: LACTATED RINGER'S 1,000 ML IV SCH (20:34)
[2019-11-05] MEDS ORDERED: INDOMETHACIN 25 MG CAP PO PRN (21:00)
[2019-11-05] MEDS: PIPERACILLIN/TAZOBACTAM 3.375 GM in DEXTROSE 5% 100 ML IV SCH (21:35)
--- NOTE | 2019-11-05 22:03 | Anesthesiology Progress Note ---
Date of Service November 05, 2019 Anesthesia Post Procedure Vital Signs Vital Signs: Temp Pulse Pulse Pulse Resp BP BP 11/05/19 20:59 38.2 C H 79 16 128/56 L 11/05/19 20:30 37.9 C H 79 16 125/66 11/05/19 19:56 37.8 C H 77 16 158/74 H 11/05/19 19:43 38.0 C H 82 18 135/69 11/05/19 19:30 38.0 C H 87 18 148/69 H 11/05/19 19:20 92 H 17 145/71 H 11/05/19 19:10 91 H 26 H 154/78 H 11/05/19 19:02 37.3 C 89 16 166/80 H 11/05/19 18:02 37.9 C H 85 18 11/05/19 17:27 171/95 H 11/05/19 17:26 11/05/19 17:00 76 16 11/05/19 16:38 71 12 171/86 H 11/05/19 16:37 69 14 11/05/19 16:30 72 17 11/05/19 16:00 71 12 11/05/19 15:30 77 14 11/05/19 15:04 94 H 15 11/05/19 14:45 93 H 19 11/05/19 14:09 75 11/05/19 14:00 74 78 18 151/73 H 11/05/19 11:50 37.6 C H 114 H 20 157/78 H BP Pulse Ox 11/05/19 20:59 96 11/05/19 20:30 92 11/05/19 19:56 97 11/05/19 19:43 94 11/05/19 19:30 93 11/05/19 19:20 99 11/05/19 19:10 100 11/05/19 19:02 100 11/05/19 18:02 174/100 H 95 11/05/19 17:27 11/05/19 17:26 92 11/05/19 17:00 98 11/05/19 16:38 95 11/05/19 16:37 171/86 H 95 11/05/19 16:30 95 11/05/19 16:00 97 11/05/19 15:30 94 11/05/19 15:04 97 11/05/19 14:45 94 11/05/19 14:09 94 11/05/19 14:00 151/73 H 95 11/05/19 11:50 90 Transfer of Care Handoff Completed per policy Notes Mental Status: alert / awake / arousable and participated in evaluation Patient Amnestic to Procedure: Yes Nausea / Vomiting: adequately controlled Pain: adequately controlled Airway Patency, RR, SpO2: stable & adequate BP & HR: stable & adequate Hydration State: stable & adequate Anesthetic Complications: no major complications apparent and Pt Satisfied with anesthetic care
[2019-11-05] MEDS: ACETAMINOPHEN 325 MG TAB PO PRN (22:06)
[2019-11-06 00:32] LABS: Appearance Urine Clear (Clear); Bacteria Urine Automated Negative (Negative); Bilirubin Urine Negative (Negative); Blood Urine 2+ (Negative); Cast Urine Automated 0 /lpf (0-5); Color Urine Orange; Glucose Urine UA Negative (Negative); Ketones Urine Negative (Negative); Leukocyte Esterase Urine Negative (Negative); Nitrite Urine Negative (Negative); Protein Urine Negative (Negative); Specific Gravity Urine 1.025 (1.000-1.030); Urobilinogen Urine Negative (Negative); pH Urine 5.5 (4.5-7.5)
--- NOTE | 2019-11-06 00:47 | Consultation Report ---
DATE OF CONSULTATION: 11/05/2019 CHIEF COMPLAINT: Abscess of right groin, status post I and D. HISTORY OF PRESENT ILLNESS: This is a 79-year-old male with past medical history significant for gout, hyperlipidemia, hypertension, obesity, who recently in September had a perforated appendicitis and small-bowel obstruction, status post exploratory laparotomy, appendectomy, drainage of abscess and lysis of adhesion on 09/25/2019. Tolerated the procedure okay and was discharged. Again now comes back with protrusion in the right lower quadrant after staple removal. The patient was having pain and CAT scan was done showing the abscess of the right groin. He is status post I and D today, tolerated the procedure okay. Resting comfortably and hemodynamically stable. Denies any chest pain, no shortness of breath, no cough, no nausea, no abdominal pain. Tolerated diet. No fever. Not feeling hot or cold, no headaches, no blurred visions. No other complaints. ALLERGIES: IBUPROFEN. PAST MEDICAL HISTORY: As mentioned above. PAST SURGICAL HISTORY: Exploratory laparotomy with lysis of adhesions for a small-bowel obstruction, appendectomy on 09/25/2019. Today status post I and D of the right groin, tonsillectomy. MEDICATIONS: The patient is on Cipro, Flagyl, lisinopril 40 mg p.o. daily, lactobacillus 1 capsule daily, indomethacin 25 mg p.o. daily, hydrocodone/acetaminophen 1 tablet p.o. q. 6 hours p.r.n. FAMILY HISTORY: Significant for mother had thyroid cancer, father had heart disorder. SOCIAL HISTORY: Single. Quit smoking in 1981. Alcohol, as per the records drinks beer daily. No substance abuse. REVIEW OF SYSTEMS: As per HPI. Rest of the review of systems negative. PHYSICAL EXAMINATION: GENERAL: The patient is of moderate build, not in acute distress. VITAL SIGNS: Temperature 38.2, pulse 79, respiratory rate 16, blood pressure 128/56, oxygen 96% on room air. HEENT: Atraumatic. NECK: Supple, no neck masses. CARDIOVASCULAR: S1, S2 heard, regular rate and rhythm, no murmur, no gallop. RESPIRATORY SYSTEM: Normal AP diameter. No accessory muscle use. Clear to auscultation bilaterally. No wheezing. No crackles. ABDOMEN: Soft, bowel sounds sluggish. Right groin dressing intact. No drainage seen. CENTRAL NERVOUS SYSTEM: Alert and oriented. Obeys commands. Moves extremities. EXTREMITIES: No edema, no erythema. LABORATORY DATA: WBC 18.9, hemoglobin 13.5, hematocrit 40.1, platelets 382. PT 11.4, INR 1.1, APTT 26.2. Sodium 133, potassium 4.6, chloride 100, bicarbonate 27, BUN 19, creatinine 0.9, serum glucose 124. Lactate 1.4, calcium 9.2, magnesium 2.3, total bilirubin 0.7, AST 19, ALT 33, alkaline phosphatase 83. Procalcitonin 0.1. IMAGING DATA: Chest x-ray, negative chest. CT of the chest, cardiomegaly with diffusion, dilatation of the ascending thoracic aorta 4.1 x 4 cm, pulmonary arterial hypertension, no PE. CT of abdomen and pelvis, 8.5 x 4.9 cm fluid collection over the right inguinal canal extending into the upper scrotum, partially posterior rim enhancement with moderate adjacent inflammation. This likely represents a developing abscess. Adjacent smaller fluid collection within the proximal right inguinal canal may communicate with right inguinal hernia. Mildly dilated fluid filled appendicular stump without adjacent inflammation. No bowel obstruction. ASSESSMENT AND PLAN: This is a 79-year-old male who was recently here on 09/25/2019 who had perforated appendicitis, status post exploratory laparotomy with adhesiolysis and appendectomy and bowel wash for abscess, comes again with right inguinal abscess, status post surgery. 1. Right inguinal abscess, status post incision I and D. Tolerated the procedure and further management as per surgery, on IV Zosyn. 2. History of hypertension. Continue his lisinopril. Will monitor the blood pressure. 3. History of gout, on indomethacin. 4. Deep venous thrombosis prophylaxis, as per surgery. 5. Disposition, as per surgery. [facility]
--- NOTE | 2019-11-06 01:13 | Operative Report (OR) ---
DATE OF OPERATION: 11/05/2019 PREOPERATIVE DIAGNOSIS: Right groin abscess. POSTOPERATIVE DIAGNOSIS: Right groin abscess. PROCEDURE: Incision and drainage of right groin abscess. SURGEON: Anupam Ivey MD. ANESTHESIA: General. ESTIMATED BLOOD LOSS: About 5 mL. FINDINGS: Right groin abscess, size about 8 x 8 cm, wound culture sent. COMPLICATIONS: None. INDICATIONS FOR THE PROCEDURE: This is a 79-year-old gentleman who presented with right groin swelling and the patient had a CT scan diagnosis of right groin abscess. The patient had an appendectomy for perforated appendix about 6 weeks ago. So after I reviewed the patient's history and physical exam and all the lab and CT scan, I recommended to do the I and D of right groin abscess. I did talk to the patient about the benefits, risks, and alternate procedures. I indicated the risks may include, but not limited such as bleeding, infection, recurrence, sepsis, myocardial infarction, DVT, stroke, even . The patient understands. He signed informed consent and I answered all questions. DETAILS OF PROCEDURE: We brought in the patient to the OR, put the patient in the supine position. The patient received SCDs on bilateral legs to prevent DVT. Also, patient received 1 g of vancomycin IV for prophylactic antibiotic. The patient received general anesthesia without difficulty. Then the Mejia catheter insertion, drainage of urine. The abdomen was prepped and draped in routine sterile fashion. After timeout, I injected local anesthesia by using 1% lidocaine mixed with 0.5% Marcaine around the abscess. The abscess was located in the right groin, size about 8 x 8 cm. Then I then made the incision. The incision size was about 6 cm over the abscess. Once we reached the subcutaneous layer, there was some pus that came out. We did send wound culture. We suctioned all the pus and then we cleaned the abscess cavity. We did not find any significant right inguinal hernia at this moment. Hemostasis was obtained. Then I used 1 g vancomycin in 1 liter normal saline to wash out the cavity of the abscess. Then we applied the bacitracin 1-inch packing to the wound. Hemostasis was obtained. Then we put the dressing on. The patient tolerated the procedure well. All instrument, needle, and sponge counts were correct x2 at the end of the case. The patient transferred to recovery room in stable condition. I attest to the content of the Intraoperative Record and any orders documented therein. Any exceptions are noted below. MTDD
[2019-11-06] MEDS: PIPERACILLIN/TAZOBACTAM 3.375 GM in DEXTROSE 5% 100 ML IV SCH ×3 (03:59→20:10)
--- NOTE | 2019-11-06 06:34 | Electrocardiogram Report ---
Test Reason : Blood Pressure : / mmHG Vent. Rate : 093 BPM Atrial Rate : 093 BPM P-R Int : 148 ms QRS Dur : 080 ms QT Int : 332 ms P-R-T Axes : 037 -43 038 degrees QTc Int : 412 ms Normal sinus rhythm Left axis deviation Abnormal ECG When compared with ECG of 25-SEP-2019 10:36, QT has shortened Confirmed by Timbo Hernandez ([id number]) on 11/06/2019 6:34:16 AM Referred By: REFERRED SELF Confirmed By:Timbo Hernandez
[2019-11-06 08:25] LABS: Basophils # (auto) 0.03 K/uL (0-0.2); Basophils % (auto) 0.2 %; Eosinophils # (auto) 0.24 K/uL (0-0.5); Hematocrit (blood only) 32.4 % (42-52); Hemoglobin 10.5 g/dL (14.0-18.0); Immature Granulocytes # (auto) 0.09 K/uL (0.00-0.02); Immature Granulocytes % (auto) 0.7 %; Lymphocytes # (auto) 2.31 K/uL (1.2-3.4); Lymphocytes % (auto) 18.9 %; Mean Corpuscular Hemoglobin 29.8 pg (25-34); Mean Corpuscular Hgb Conc 32.4 g/dL (32-36); Mean Platelet Volume 9.1 fL (7.4-10.4); Monocytes # (auto) 1.44 K/uL (0.11-0.59); Monocytes % (auto) 11.8 %; Neutrophils # (auto) 8.11 K/uL (1.4-6.5); Neutrophils % (auto) 66.4 %; Platelet Count 292 K/uL (130-400); RDW Coefficient of Variation 13.5 % (11.5-14.5); RDW Standard Deviation 45.5 fL (36.4-46.3); Red Blood Count 3.52 M/uL (4.7-6.1); White Blood Count 12.22 K/uL (4.8-10.8)
--- NOTE | 2019-11-06 08:45 | Hospitalist Progress Note ---
Date of Service November 06, 2019 Assessment & Plan (1) Abscess of right groin: (2) Hypertension: R Groin abscess I&Dd by Dr Ivey 11/04, BP good, WBCs coming down, DC home when closer to normal, likely 11/06, Afebrile since I&D, will follow Labs Checked ROS-No Headache, No Visual Changes, No Nausea, No Vomiting, No Fever, No Chills, No Neck Pain or Stiffness, No Chest Pain, No Palpitations, No SOB, No PERKINS, No Cough, No Sputum, No Wheezing, No Abdominal Pain, No Diarrhea, No Hematemesis, No Hemoptysis, No Unexpected Weight Loss, No Flank pain, No Melena, No Hematochezia, No Frequency, No Urgency, No Burning, No Hematuria, No Rashes, No Diaphoresis. Appetite is Normal Physical Exam Gen-AAO x 3, NAD, Afebrile Head-NCAT, EOMI, PERRLA, Anicteric Sclera, No Posterior Pharyngeal Erythema Neck-Supple, No JVD, No Thyromegaly, No Masses, No LAD, No Bruits Lungs-Clear to Auscultation Bilaterally, No Rales, No Rhonchi, No Wheezing, No Crepitus Chest-No S4, +S1, +S2, No S3, No Murmurs, No Rubs, No Gallops, No Ectopy Abdomen-Soft, Bowel Sounds Present, Non Tender, Non Distended, No Hepatomegaly, No Splenomegaly, No Palpable Masses, No Rebound, No Rigidity, No Guarding Musculoskeletal-Full Range of Motion Bilaterally, No CVAT Extremities-No Cyanosis, No Clubbing, No Edema Nuero-Cranial Nerves II-XII grossly intact, Motor WNL, DTRs WNL, Strength WNL, Non Focal Psych-Normal Mood Admission and Anticipated Discharge Date Admission Date: November 05, 2019 Anticipated date of discharge: 11/07/19 Results & Data Results & Data ([facility]) Vital Signs (Past 12 Hours) Vital Signs Temp Pulse Pulse Resp BP Pulse Ox 11/06/19 07:12 37.5 C 69 18 134/72 95 11/06/19 03:33 37.4 C 67 16 120/68 94 11/05/19 22:50 37.4 C 83 16 121/73 94 11/05/19 20:59 38.2 C H 79 16 128/56 L 96
[2019-11-06 08:59] LABS: Albumin Level 2.2 gm/dl (3.4-5.0); BUN Creatinine Ratio 13.9 (10-20); Calcium 8.9 mg/dl (8.5-10.1); Creatinine Clr Calc Pharmacy 83.3 ml/min; Est GFR (African American) 98.5; Potassium 4.2 mmol/L (3.5-5.1)
[2019-11-06] MEDS: LACTATED RINGER'S 1,000 ML IV SCH (08:59)
[2019-11-06] MEDS: lisinopriL 40 MG TAB PO SCH (09:00)
[2019-11-06] MEDS: LACTOBACILLUS ACIDOPHILUS (FLORANEX) TAB PO SCH (09:00)
[2019-11-06 09:02] LABS: Albumin Globulin Ratio 0.5 (0.9-2); Bilirubin,Total 0.8 mg/dl (0.2-1); Globulin 4.1 gm/dl (2.5-4.0); Total Protein 6.3 gm/dl (6.4-8.2)
--- NOTE | 2019-11-06 15:00 | Surgery Progress Note ---
Date of Service November 06, 2019 Assessment & Plan (1) Abscess of right groin: POD # 1 s/p I&D of right groin abscess 8 x 8 cm in size - afebrile postop - no postop pain - vss - cultures (blood culture and wound culture) pending Plan: Continue IV Zosyn, discontinue IV fluids as taking PO well discontinue Mejia catheter wound care consult for wound vac case management setting up home health Continue IV Abx today If stable, wound vac placed, and home health set up patient can be discharged tomorrow oral cipro and flagyl will be sent to pharmacy f/u wound center f/u surgical office in [address] Gilmore covering over weekend Dr. Ivey has seen patient, agrees with above plan. Subjective feeling good today having no pain no n/v tolerated regular diet Physical Exam Constitutional: WD/WN, vitals as above no acute distress Respiratory: normal respiratory effort Gastrointestinal (Abdomen): Inspection/Auscultation: abdomen normal to inspection and + abdominal surgical scar (midline laparotomy scar present); abdomen not distended Percussion/Palpation: abdomen soft; abdomen nontender, no guarding and abdomen not rigid Right groin: 6 cm incision with iodoform packing present. Mild surrounding erythema, no induration, mild edema. Skin: no rashes, warm and dry Results & Data Vital Signs (Past 12 Hours) Vital Signs Temp Pulse Resp BP Pulse Ox 11/06/19 11:15 37.4 C 68 18 125/73 94 11/06/19 07:12 37.5 C 69 18 134/72 95 11/06/19 03:33 37.4 C 67 16 120/68 94 Laboratory Results Microbiology 11/05/19 13:02 Aerobic Blood Culture - Preliminary Blood No growth in Aerobic bottle after 24 hours. Anaerobic Blood Culture - Preliminary No growth in Anaerobic bottle after 24 hours. 11/05/19 12:55 Aerobic Blood Culture - Preliminary Blood No growth in Aerobic bottle after 24 hours. Anaerobic Blood Culture - Preliminary No growth in Anaerobic bottle after 24 hours. 11/05/19 18:30 Gram Stain - Final Abdomen, Right Lower Quadrant 11/06/19 11/06/19 11/06/19 Range/Units 08:14 08:14 00:05 WBC 12.22 H (4.8-10.8) K/uL RBC 3.52 L (4.7-6.1) M/uL Hgb 10.5 L (14.0-18.0) g/dL Hct 32.4 L (42-52) % MCV 92.0 (80-100) fL MCH 29.8 (25-34) pg MCHC 32.4 (32-36) g/dL RDW Std Deviation 45.5 (36.4-46.3) fL RDW Coeff of Kathy 13.5 (11.5-14.5) % Plt Count 292 (130-400) K/uL MPV 9.1 (7.4-10.4) fL Immature Gran % (Auto) 0.7 % Neut % (Auto) 66.4 % Lymph % (Auto) 18.9 % D[place]y % (Auto) 11.8 % Eos % (Auto) 2.0 % Baso % (Auto) 0.2 % Immature Gran # (Auto) 0.09 H (0.00-0.02) K/uL Neut # (Auto) 8.11 H (1.4-6.5) K/uL Lymph # (Auto) 2.31 (1.2-3.4) K/uL D[place]y # (Auto) 1.44 H (0.11-0.59) K/uL Eos # (Auto) 0.24 (0-0.5) K/uL Baso # (Auto) 0.03 (0-0.2) K/uL Sodium 136 (136-145) mmol/L Potassium 4.2 (3.5-5.1) mmol/L Chloride 102 (98-107) mmol/L Carbon Dioxide 30 (21-32) mmol/L Anion Gap 4.0 (3-11) BUN 11 (7-18) mg/dl Creatinine 0.80 (0.6-1.4) mg/dl Est Cr Clr Drug Dosing 83.3 ml/min Est GFR ( Amer) 98.5 Est GFR (Non-Af Amer) 85.0 BUN/Creatinine Ratio 13.9 (10-20) Glucose 116 H (70-99) mg/dl Calcium 8.9 (8.5-10.1) mg/dl Total Bilirubin 0.8 (0.2-1) mg/dl AST 13 L (15-37) U/L ALT 25 (12-78) U/L Alkaline Phosphatase 64 (45-117) U/L Total Protein 6.3 L (6.4-8.2) gm/dl Albumin 2.2 L (3.4-5.0) gm/dl Globulin 4.1 H (2.5-4.0) gm/dl Albumin/Globulin Ratio 0.5 L (0.9-2) Urine Color Sampson Urine Appearance Clear (Clear) Urine pH 5.5 (4.5-7.5) Ur Specific [place] 1.025 (1.000-1.030) Urine Protein Negative (Negative) Urine Glucose (UA) Negative (Negative) Urine Ketones Negative (Negative) Urine Blood 2+ H (Negative) Urine Nitrite Negative (Negative) Urine Bilirubin Negative (Negative) Urine Urobilinogen Negative (Negative) Ur Leukocyte Esterase Negative (Negative) Urine WBC (Auto) 1-5 (0-5) /hpf Urine RBC (Auto) 10-30 H (0-4) /hpf U Hyaline Cast (Auto) 0 (0-5) /lpf U Epithel Cells (Auto) 5-10 H (0-5) /lpf Urine Bacteria (Auto) Negative (Negative) COVID-19 PCR (Negative) 11/05/19 Range/Units 16:44 WBC (4.8-10.8) K/uL RBC (4.7-6.1) M/uL Hgb (14.0-18.0) g/dL Hct (42-52) % MCV (80-100) fL MCH (25-34) pg MCHC (32-36) g/dL RDW Std Deviation (36.4-46.3) fL RDW Coeff of Kathy (11.5-14.5) % Plt Count (130-400) K/uL MPV (7.4-10.4) fL Immature Gran % (Auto) % Neut % (Auto) % Lymph % (Auto) % [place] % (Auto) % Eos % (Auto) % Baso % (Auto) % Immature Gran # (Auto) (0.00-0.02) K/uL Neut # (Auto) (1.4-6.5) K/uL Lymph # (Auto) (1.2-3.4) K/uL [place] # (Auto) (0.11-0.59) K/uL Eos # (Auto) (0-0.5) K/uL Baso # (Auto) (0-0.2) K/uL Sodium (136-145) mmol/L Potassium (3.5-5.1) mmol/L Chloride (98-107) mmol/L Carbon Dioxide (21-32) mmol/L Anion Gap (3-11) BUN (7-18) mg/dl Creatinine (0.6-1.4) mg/dl Est Cr Clr Drug Dosing ml/min Est GFR ( Amer) Est GFR (Non-Af Amer) BUN/Creatinine Ratio (10-20) Glucose (70-99) mg/dl Calcium (8.5-10.1) mg/dl Total Bilirubin (0.2-1) mg/dl AST (15-37) U/L ALT (12-78) U/L Alkaline Phosphatase (45-117) U/L Total Protein (6.4-8.2) gm/dl Albumin (3.4-5.0) gm/dl Globulin (2.5-4.0) gm/dl Albumin/Globulin Ratio (0.9-2) Urine Color Urine Appearance (Clear) Urine pH (4.5-7.5) Ur Specific [place] (1.000-1.030) Urine Protein (Negative) Urine Glucose (UA) (Negative) Urine Ketones (Negative) Urine Blood (Negative) Urine Nitrite (Negative) Urine Bilirubin (Negative) Urine Urobilinogen (Negative) Ur Leukocyte Esterase (Negative) Urine WBC (Auto) (0-5) /hpf Urine RBC (Auto) (0-4) /hpf U Hyaline Cast (Auto) (0-5) /lpf U Epithel Cells (Auto) (0-5) /lpf Urine Bacteria (Auto) (Negative) COVID-19 PCR NEGATIVE (Negative)
[2019-11-06] MEDS: ACETAMINOPHEN 325 MG TAB PO PRN (15:15)
[2019-11-07] MEDS: PIPERACILLIN/TAZOBACTAM 3.375 GM in DEXTROSE 5% 100 ML IV SCH (05:28)
[2019-11-07] MEDS: OXYCODONE/ACETAMINOPHEN 5mg/325mg TAB PO PRN ×2 (06:10→12:17)
[2019-11-07 06:22] LABS: Hematocrit (blood only) 37.4 % (42-52); Mean Corpuscular Hemoglobin 29.9 pg (25-34); Mean Corpuscular Hgb Conc 32.1 g/dL (32-36); Mean Platelet Volume 9.1 fL (7.4-10.4); Platelet Count 378 K/uL (130-400); RDW Coefficient of Variation 13.4 % (11.5-14.5); RDW Standard Deviation 46.1 fL (36.4-46.3); Red Blood Count 4.02 M/uL (4.7-6.1); White Blood Count 13.15 K/uL (4.8-10.8)
[2019-11-07 06:48] LABS: BUN Creatinine Ratio 12.5 (10-20); Calcium 9.1 mg/dl (8.5-10.1); Creatinine Clr Calc Pharmacy 68.7 ml/min; Est GFR (African American) 85.7; Est GFR (Non-African American) 73.9; Potassium 3.9 mmol/L (3.5-5.1)
--- NOTE | 2019-11-07 08:06 | Hospitalist Progress Note ---
Date of Service November 07, 2019 Assessment & Plan (1) Abscess of right groin: (2) Hypertension: R Groin abscess I&Dd by Dr Ivey 11/04, BP good, WBCs up a little today, DC home when Afebrile, Culture Neg, Wound Vac to be placed, DC on Bactrim DS or Augmentin and Doxy Labs Checked ROS-No Headache, No Visual Changes, No Nausea, No Vomiting, No Fever, No Chills, No Neck Pain or Stiffness, No Chest Pain, No Palpitations, No SOB, No PERKINS, No Cough, No Sputum, No Wheezing, No Abdominal Pain, No Diarrhea, No Hematemesis, No Hemoptysis, No Unexpected Weight Loss, No Flank pain, No Melena, No Hematochezia, No Frequency, No Urgency, No Burning, No Hematuria, No Rashes, No Diaphoresis. Appetite is Normal Physical Exam Gen-AAO x 3, NAD, febrile Head-NCAT, EOMI, PERRLA, Anicteric Sclera, No Posterior Pharyngeal Erythema Neck-Supple, No JVD, No Thyromegaly, No Masses, No LAD, No Bruits Lungs-Clear to Auscultation Bilaterally, No Rales, No Rhonchi, No Wheezing, No Crepitus Chest-No S4, +S1, +S2, No S3, No Murmurs, No Rubs, No Gallops, No Ectopy Abdomen-Soft, Bowel Sounds Present, Non Tender, Non Distended, No Hepatomegaly, No Splenomegaly, No Palpable Masses, No Rebound, No Rigidity, No Guarding Musculoskeletal-Full Range of Motion Bilaterally, No CVAT Extremities-No Cyanosis, No Clubbing, No Edema Nuero-Cranial Nerves II-XII grossly intact, Motor WNL, DTRs WNL, Strength WNL, Non Focal Psych-Normal Mood Admission and Anticipated Discharge Date Admission Date: November 05, 2019 Anticipated date of discharge: 11/07/19 Results & Data Results & Data ([facility]) Vital Signs (Past 12 Hours) Vital Signs Temp Pulse Resp BP Pulse Ox 11/07/19 07:10 37.7 C H 66 18 107/61 91 11/06/19 23:28 37.6 C H 76 16 121/67 93
[2019-11-07] MEDS: LACTOBACILLUS ACIDOPHILUS (FLORANEX) TAB PO SCH (09:02)
[2019-11-07] MEDS: lisinopriL 40 MG TAB PO SCH (09:02)
--- NOTE | 2019-11-07 09:53 | Surgery Progress Note ---
Date of Service November 07, 2019 Assessment & Plan (1) Abscess of right groin: POD 2 I&D groin abscess ok for d/c with wound vac/home health as above. wbc slightly increased but appears hemoconcentrated. ok for d/c with VAC/home nursing. Subjective feels fine, ready for discharge Physical Exam Skin: wound vac in place, no surrounding erythema Results & Data Vital Signs (Past 12 Hours) Vital Signs Temp Pulse Resp BP Pulse Ox 11/07/19 09:04 36.8 C 11/07/19 07:10 37.7 C H 66 18 107/61 91 11/06/19 23:28 37.6 C H 76 16 121/67 93 PG Care Time/CCT Total # of Minutes Spent Total Time Spent with Patient: Total time spent is greater than 50% in coordination of care (as documented) at patient's floor/unit and/or counseling patient: Coding Level of Care Code 39275 Subseq Hosp Care Lvl 1 Diagnoses Abscess of right groin L02.214
--- NOTE | 2019-11-09 13:14 | Discharge Summary (DS) ---
ADMITTING DIAGNOSIS: Right groin abscess. DISCHARGE DIAGNOSIS: Same. OPERATION: Incision and drainage of the right groin abscess. SURGEON: Anupam Ivey MD. DETAILS OF DISCHARGE SUMMARY: This is a 79-year-old gentleman who presented to ED with a few days history of right groin swollen and tenderness. The patient had a CT scan diagnosis of right groin abscess. I recommended to do incision and drainage of right groin abscess. I did talk to the patient about the benefit, risk, alternate of the procedure and the patient understands. He agreed to do the surgery. We took the patient to the OR. We did an incision and drainage of right groin abscess. After drainage of abscess and repacking the abscess on 11/05/2019 patient tolerated the procedure well. After procedure, the patient transferred to recovery room in stable condition and later on transferred to regular floor. The patient is doing fine. He tolerated the diet and no fever. White count came down. PHYSICAL EXAMINATION: VITAL SIGNS: Temperature is 36.8, respiratory rate 18, heart rate 83, blood pressure 107/61, O2 saturation 91% on room air. GENERAL: The patient is alert, awake, oriented x3, no distress. HEENT: Within normal limitation. NEUROLOGIC: Intact. NECK: No JVD. CHEST: Bilateral lung sounds clear. HEART: Normal S1, S2. No murmur. ABDOMEN: Soft. Wound on the right groin and the patient had a wound VAC put in by the wound care nurse. The wound is dry, no significant redness. EXTREMITIES: No edema. Blood work shows a WBC of 13.14 and hemoglobin is 12, hematocrit is 37.4. Otherwise, the patient is doing fine. We gave patient postop care instruction. The patient will follow up with the wound care center and also gave the patient the 7 days p.o. antibiotic. The patient discharged home on 11/07/2019. I will follow up the patient in 2 weeks in my office. patient developed RLQ abdominal wall abscess, possible related to perforated appendicitis, MTDD
--- NOTE | 2019-11-16 08:50 | Coding Query ---
To promote full compliance with coding requirements relating to patient care, provider participation is requested in all cases of manager sas uncertainty. Please assist us with the question(s) below: Coding Question(s): The diagnosis below was documented in the ER H&P, then subsequently fell off all further documentation. Please indicate if it is still a possible diagnosis or ruled out. Physician's Response(s): SEPSIS ( ) Diagnosed and POA ( X ) Diagnosed and not POA ( ) Ruled out ( ) Other (please specify) MTDD
== END 2019-11-07 12:35 | disposition home health service (06) | DRG 579 ==
LOC: ED 11:48 → OR 17:29 → 3N 18:56

== ENCOUNTER 2021-12-07 14:53 | Inpatient (IN) ==
--- NOTE | 2021-12-07 15:33 | XRay Report ---
SINGLE VIEW CHEST CLINICAL HISTORY: Dyspnea. FINDINGS: An AP, portable, upright chest radiograph is compared to chest x-ray and chest CT dated 10/09. The heart is enlarged noting atherosclerotic calcification of the thoracic aorta. The pulmona ry vasculature is noncongested. There is chronic elevation of the right hemidiaphragm. Airspace opaci ties are seen at the medial right lung base. There is left basilar atelectasis. No large pleural effu jasbir or pneumothorax is identified. The skeletal structures are osteopenic. The bony thorax is grossl y intact. Arthritic change is noted in the shoulders. IMPRESSION: 1. Cardiomegaly without radiographic evidence of congestive failure. 2. Airspace opacities are seen at the medial right lung base. This could represent atelectasis versus an infectious/inflammatory pneumonitis and clinical correlation will be required. ACT 112: Negative or not required by law. Electronically signed by: Prasanna Babin M.D. 12/07/2021 3:32 PM
[2021-12-07 16:30] LABS: Basophils # (auto) 0.02 K/uL (0-0.2); Basophils % (auto) 0.2 %; Eosinophils # (auto) 0.11 K/uL (0-0.5); Eosinophils % (auto) 1.3 %; Hematocrit (blood only) 42.9 % (42-52); Hemoglobin 14.8 g/dL (14.0-18.0); Immature Granulocytes # (auto) 0.06 K/uL (0.00-0.02); Immature Granulocytes % (auto) 0.7 %; Lymphocytes # (auto) 1.42 K/uL (1.2-3.4); Lymphocytes % (auto) 17.1 %; Mean Corpuscular Hgb Conc 34.5 g/dL (32-36); Mean Corpuscular Volume 92.7 fL (80-100); Monocytes # (auto) 0.96 K/uL (0.11-0.59); Monocytes % (auto) 11.6 %; Neutrophils # (auto) 5.73 K/uL (1.4-6.5); Neutrophils % (auto) 69.1 %; Platelet Count 253 K/uL (130-400); Prothrombin Time 11.1 Seconds (9.0-12.0); RDW Coefficient of Variation 13.9 % (11.5-14.5); RDW Standard Deviation 47.2 fL (36.4-46.3); Red Blood Count 4.63 M/uL (4.7-6.1)
[2021-12-07 16:43] LABS: Albumin Globulin Ratio 1.3 (0.9-2); Albumin Level 4.2 gm/dl (3.4-5.0); Bilirubin,Total 0.8 mg/dl (0.2-1.0); Calcium 9.2 mg/dl (8.5-10.1); Creatinine Clr Calc Pharmacy 78.9 ml/min; Est GFR (African American) 96.1 ml/min; Est GFR (Non-African American) 82.9 ml/min; Globulin 3.3 gm/dl (2.5-4.0); Potassium 3.9 mmol/L (3.5-5.1); Total Protein 7.5 gm/dl (6.0-8.3)
[2021-12-07 16:46] LABS: Troponin I High Sensitivity 7.2 pg/ml (0-20)
[2021-12-07] MEDS ORDERED: cefTRIAXone SODIUM 2,000 MG/70 ML BAG IV STA (17:06)
--- NOTE | 2021-12-07 17:20 | Emergency Department Note ---
Impression & Plan Pneumonia of both lower lobes, Hypoxia, PERKINS (dyspnea on exertion), Hypertensive urgency ED Provider Note Provider: Theodore Roland MD DATE OF SERVICE: 12/07/2021 CHIEF COMPLAINT: Shortness of breath with exertion HISTORY OF PRESENT ILLNESS: Patient is a 81-year-old gentleman distant history o f hypertension no longer on treatment presenting as well as gout from PCPs office after being found hypoxic complaining shortness of breath with exertion. Patient symptoms began over the last several days he reports. Denies chest pain. Patient evidently found to be febrile prior to arrival but denies significant fever chills previously. Some intermittent coughing last several days has improved with some mild production at times. Denies GI upset with abdominal pain, nausea, vomiting, or diarrhea not being present. Patient denies significant leg swelling. Did have a sick exposure to someone with COVID several weeks ago and the patient is not vaccinated. Patient does not normally wear oxygen. REVIEW OF SYSTEMS: A total of 10 review of systems was obtained and negative except as stated above in the HPI. PAST MEDICAL HISTORY: As noted above MEDICATIONS: Reviewed home medications with intermittent indomethacin usage SOCIAL HISTORY: Lives at home by himself, distant smoker quit more than 40 years ago PHYSICAL EXAM: GENERAL: alert and oriented in no acute distress on stretcher Head: normocephalic and atraumatic EYES: No injection, discharge or icterus. NECK: Trachea midline. Supple. ENT: Mucous membranes pink and moist. LUNGS: Airway patent. No retractions. Breath sounds clear with good air entry bilaterally. HEART: Regular rate and rhythm. No chest wall tenderness ABDOMEN: Soft and non-tender, without guarding or rebound. SKIN: Acyanotic, warm, dry, without rashes EXTREMITIES: Without swelling, tenderness or deformity NEUROLOGICAL: No focal deficits. No aphasia. No facial droop or slurred speech. Ambulatory. EK bpm sinus rhythm with PAC. No acute ST segment elevation or depression with QTC of 421. Incomplete right bundle branch block is noted. CONTINUOUS CARDIAC MONITORING: was ordered and showed a heart rate of 60s-80s bpm in normal sinus rhythm Patient's laboratory studies and imaging reviewed. Differential includes Reactive airway disease, pneumonia, pneumothorax, COPD, CHF, infections, cardiac ischemia, pulmonary embolism, musculoskeletal, gastrointestinal, as well as other pathologies. IMPRESSION/MEDICAL DECISION MAKING: Patient found to be newly hypoxic. Question infectious source with some fever reported. And also noted to be significantly hypertensive and not currently on therapy as he states his blood sugars been well the last time he has been to the doctors. Patient without significant anemia or leukocytosis. Procalcitonin mildly elevated at 0.86. No significant evidence of hepatitis or troponin elevation on blood work. Mild hyponatremia of 132. No renal dysfunction. COVID flu and RSV test was sent. Chest x-ray questions right lower process. For further differentiation to exclude PE a CT of the chest to be completed. Given some fever reported and a mildly elevated procalcitonin with a hypoxia did give a dose of ceftriaxone here empirically. Negative COVID and influenza and RSV test. Mild hyponatremia 133. No signs of significant renal dysfunction. No hepatitis or pancreatitis evident from the blood work. Given a small dose of labetalol for the hypertension. Azithromycin for any atypical component given the CT with question of bilateral lower lobe pneumonia. No evidence of PE. Given some IV labetalol for significant hypertension and later dose of IV hydralazine. Do not see evidence of heart failure. Discussed with the patient and the hospital team for further care given his hypoxia. DIAGNOSIS: Dyspnea on exertion, hypoxia, bilateral lower lobe pneumonia, hypertensive urgency DISPOSITION: Hospitalist will evaluate Patient was agreeable with this plan. Critical Care I have personally spent 32 minutes of critical care time in the direct managemen t of this patient. This includes bedside care, interpretation of diagnostic studies, and testing, discussion with consultants, patient, and other required patient management activities. These 32 minutes is in excess of all separately billable procedures. Past Med/Surg History Medical History Gout HLD (hyperlipidemia) History of hyperlipidemia but does not take cholesterol medication Hypertension Surgical History History of appendectomy History of tonsillectomy and adenoidectomy Hx of tonsillectomy age 5 Family History (Updated 12/07/21 @ 18:08 by Morenita Guerra PA-C) Father , 62 Myocardial infarction Coronary heart disease Other Dyslipidemia Heart disease Social History (Updated 12/07/21 @ 18:22 by Morenita Guerra PA-C) Smoking Status: Former smoker Tobacco Type: Cigarettes packs per day: 4; Number of Years Since Quit: 38; Second Hand Exposure: No; Hx Alcohol Use: Yes Alcohol type: beer Alcohol type Comment: 3 beers per week, last beer 1 week ago Hx Substance Use: No Preferred Language: Yakut Communication Ability: Effective Compensation And Benefits Administrator Required: No Beliefs That Will Affect Care: None marital status: Single Current Living Situation: Alone Feels Safe at Home: Yes Assistive Devices: None Allergies Allergies Allergy/AdvReac Type Severity Reaction Status Date / Time No Known Allergies Allergy Verified 12/07/21 16:21 Home Meds Home Medications Medication Instructions Recorded Confirmed indomethacin 25 mg capsule 50 mg PO TID PRN 11/05/19 12/07/21 ibuprofen 200 mg tablet (Motrin IB) 400 mg PO DIRECTED PRN 12/07/21 12/07/21 Results & Data (ED) Vital Signs Vital Signs - 24 hr 12/07/21 14:54 12/07/21 14:59 12/07/21 15:00 Temperature 37.3 C Temperature Source Oral Pulse Rate 88 88 91 H Pulse Rhythm Regular Pulse Strength Normal Respiratory Rate 26 H 26 H 17 Respiratory Effort / Characteristics Spontaneous Respiratory Depth Shallow Respiratory Pattern Regular Blood Pressure 225/106 H Blood Pressure Mean 145 Blood Pressure Position Sitting Pulse Oximetry 91 100 100 Oxygen Delivery Method Room Air Nasal Cannula Nasal Cannula Oxygen Flow Rate 0 2 2 Sepsis Recent Fever Within 48 Hours Yes Sepsis New/Unexplained Change in Mental Status No Sepsis Action Taken by Nursing No Action Required Oxygen Flow Rate - Titration 2 Pulse Oximetry Post Tiitration 99 12/07/21 15:15 12/07/21 15:30 12/07/21 15:45 Temperature Temperature Source Pulse Rate 78 85 77 Pulse Rhythm Pulse Strength Respiratory Rate 12 20 16 Respiratory Effort / Characteristics Respiratory Depth Respiratory Pattern Blood Pressure 201/104 H Blood Pressure Mean 136 Blood Pressure Position Pulse Oximetry 94 96 95 Oxygen Delivery Method Nasal Cannula Nasal Cannula Nasal Cannula Oxygen Flow Rate 2 2 2 Sepsis Recent Fever Within 48 Hours Sepsis New/Unexplained Change in Mental Status Sepsis Action Taken by Nursing Oxygen Flow Rate - Titration Pulse Oximetry Post Tiitration 12/07/21 15:49 12/07/21 16:00 12/07/21 16:15 Temperature Temperature Source Pulse Rate 63 75 73 Pulse Rhythm Regular Pulse Strength Respiratory Rate 24 18 17 Respiratory Effort / Characteristics Respiratory Depth Respiratory Pattern Blood Pressure Blood Pressure Mean Blood Pressure Position Pulse Oximetry 96 97 96 Oxygen Delivery Method Nasal Cannula Nasal Cannula Nasal Cannula Oxygen Flow Rate 2 2 2 Sepsis Recent Fever Within 48 Hours Sepsis New/Unexplained Change in Mental Status Sepsis Action Taken by Nursing Oxygen Flow Rate - Titration Pulse Oximetry Post Tiitration 12/07/21 16:30 12/07/21 17:00 12/07/21 17:12 Temperature Temperature Source Pulse Rate 73 71 81 Pulse Rhythm Pulse Strength Respiratory Rate 19 21 19 Respiratory Effort / Characteristics Respiratory Depth Respiratory Pattern Blood Pressure 199/101 H Blood Pressure Mean 133 Blood Pressure Position Pulse Oximetry 97 99 100 Oxygen Delivery Method Nasal Cannula Nasal Cannula Nasal Cannula Oxygen Flow Rate 2 2 2 Sepsis Recent Fever Within 48 Hours Sepsis New/Unexplained Change in Mental Status Sepsis Action Taken by Nursing Oxygen Flow Rate - Titration Pulse Oximetry Post Tiitration 12/07/21 17:30 Temperature Temperature Source Pulse Rate 65 Pulse Rhythm Pulse Strength Respiratory Rate 12 Respiratory Effort / Characteristics Respiratory Depth Respiratory Pattern Blood Pressure Blood Pressure Mean Blood Pressure Position Pulse Oximetry 100 Oxygen Delivery Method Nasal Cannula Oxygen Flow Rate 2 Sepsis Recent Fever Within 48 Hours Sepsis New/Unexplained Change in Mental Status Sepsis Action Taken by Nursing Oxygen Flow Rate - Titration Pulse Oximetry Post Tiitration Laboratory Data Result diagrams: 12/07/21 16:00 12/07/21 16:00 Lab Results 12/07/21 12/07/21 12/07/21 Range/Units 15:05 16:00 16:00 WBC 8.30 (4.8-10.8) K/uL RBC 4.63 L (4.7-6.1) M/uL Hgb 14.8 (14.0-18.0) g/dL Hct 42.9 (42-52) % MCV 92.7 (80-100) fL MCH 32.0 (25-34) pg MCHC 34.5 (32-36) g/dL RDW Std Deviation 47.2 H (36.4-46.3) fL RDW Coeff of Kathy 13.9 (11.5-14.5) % Plt Count 253 (130-400) K/uL MPV 10.0 (7.4-10.4) fL Immature Gran % (Auto) 0.7 % Neut % (Auto) 69.1 % Lymph % (Auto) 17.1 % [place] % (Auto) 11.6 % Eos % (Auto) 1.3 % Baso % (Auto) 0.2 % Neut # (Auto) 5.73 (1.4-6.5) K/uL Lymph # (Auto) 1.42 (1.2-3.4) K/uL [place] # (Auto) 0.96 H (0.11-0.59) K/uL Eos # (Auto) 0.11 (0-0.5) K/uL Baso # (Auto) 0.02 (0-0.2) K/uL Immature Gran # (Auto) 0.06 H (0.00-0.02) K/uL PT 11.1 (9.0-12.0) Seconds INR 1.0 (0.9-1.1) Sodium (136-145) mmol/L Potassium (3.5-5.1) mmol/L Chloride (98-107) mmol/L Carbon Dioxide (21-32) mmol/L Anion Gap (3-11) BUN (6-23) mg/dl Creatinine (0.6-1.4) mg/dl Est Cr Clr Drug Dosing ml/min Est GFR ( Amer) ml/min Est GFR (Non-Af Amer) ml/min BUN/Creatinine Ratio (10-20) Glucose (70-99(Fasting)) mg/dl Lactate (0.4-2.0) mmol/L Calcium (8.5-10.1) mg/dl Magnesium (1.7-2.4) mg/dl Total Bilirubin (0.2-1.0) mg/dl AST (13-39) U/L ALT (7-52) U/L Alkaline Phosphatase (34-104) U/L Troponin I High Sens (0-20) pg/ml Total Protein (6.0-8.3) gm/dl Albumin (3.4-5.0) gm/dl Globulin (2.5-4.0) gm/dl Albumin/Globulin Ratio (0.9-2) Procalcitonin (0-0.5) ng/ml SARS-CoV-2 (PCR) NEGATIVE (Negative) Influenza Type A (PCR) Negative (Neg) Influenza Type B (PCR) Negative (Neg) RSV (RT-PCR) Negative (Neg) 12/07/21 12/07/21 12/07/21 Range/Units 16:00 16:00 17:27 WBC (4.8-10.8) K/uL RBC (4.7-6.1) M/uL Hgb (14.0-18.0) g/dL Hct (42-52) % MCV (80-100) fL MCH (25-34) pg MCHC (32-36) g/dL RDW Std Deviation (36.4-46.3) fL RDW Coeff of Kathy (11.5-14.5) % Plt Count (130-400) K/uL MPV (7.4-10.4) fL Immature Gran % (Auto) % Neut % (Auto) % Lymph % (Auto) % [place] % (Auto) % Eos % (Auto) % Baso % (Auto) % Neut # (Auto) (1.4-6.5) K/uL Lymph # (Auto) (1.2-3.4) K/uL [place] # (Auto) (0.11-0.59) K/uL Eos # (Auto) (0-0.5) K/uL Baso # (Auto) (0-0.2) K/uL Immature Gran # (Auto) (0.00-0.02) K/uL PT (9.0-12.0) Seconds INR (0.9-1.1) Sodium 132 L (136-145) mmol/L Potassium 3.9 (3.5-5.1) mmol/L Chloride 94 L (98-107) mmol/L Carbon Dioxide 27 (21-32) mmol/L Anion Gap 11 (3-11) BUN 18 (6-23) mg/dl Creatinine 0.82 (0.6-1.4) mg/dl Est Cr Clr Drug Dosing 78.9 ml/min Est GFR ( Amer) 96.1 ml/min Est GFR (Non-Af Amer) 82.9 ml/min BUN/Creatinine Ratio 22.0 H (10-20) Glucose 100 H (70-99(Fasting)) mg/dl Lactate 0.9 (0.4-2.0) mmol/L Calcium 9.2 (8.5-10.1) mg/dl Magnesium 2.0 (1.7-2.4) mg/dl Total Bilirubin 0.8 (0.2-1.0) mg/dl AST 19 (13-39) U/L ALT 21 (7-52) U/L Alkaline Phosphatase 52 (34-104) U/L Troponin I High Sens 7.2 (0-20) pg/ml Total Protein 7.5 (6.0-8.3) gm/dl Albumin 4.2 (3.4-5.0) gm/dl Globulin 3.3 (2.5-4.0) gm/dl Albumin/Globulin Ratio 1.3 (0.9-2) Procalcitonin 0.86 H (0-0.5) ng/ml SARS-CoV-2 (PCR) (Negative) Influenza Type A (PCR) (Neg) Influenza Type B (PCR) (Neg) RSV (RT-PCR) (Neg) Administered Medications Discontinued Medications Ceftriaxone Sodium (Rocephin) 2,000 mg in 70 mls @ 140 mls/hr IV NOW STA Stop: 12/07/21 17:35 Last Admin: 12/07/21 18:13 Dose: 140 mls/hr Documented by: [id number] Ioversol (Optiray 320 125ml) 118 ml IV ONCE ONE Stop: 12/07/21 17:38 Last Admin: 12/07/21 17:40 Dose: 118 ml Documented by: [id number] Imaging Data Radiologist's Impression: Chest X-Ray 12/07/21 15:15 SINGLE VIEW CHEST CLINICAL HISTORY: Dyspnea. FINDINGS: An AP, portable, upright chest radiograph is compared to chest x-ray and chest CT dated 11/05/2019. The heart is enlarged noting atherosclerotic calcification of the thoracic aorta. The pulmonary vasculature is noncongested. There is chronic elevation of the right hemidiaphragm. Airspace opacities are seen at the medial right lung base. There is left basilar atelectasis. No large pleural effusion or pneumothorax is identified. The skeletal structures are osteopenic. The bony thorax is grossly intact. Arthritic change is noted in the shoulders. IMPRESSION: 1. Cardiomegaly without radiographic evidence of congestive failure. 2. Airspace opacities are seen at the medial right lung base. This could represent atelectasis versus an infectious/inflammatory pneumonitis and clinical correlation will be required. ACT 112: Negative or not required by law. Electronically signed by: Prasanna Babin M.D. 12/07/2021 3:32 PM Chest CTA 12/07/21 16:51 CT angio chest PE protocol CLINICAL HISTORY: PE, sob, hypoxia TECHNIQUE: Multidetector row helical CT of the chest was performed with angiographic protocol. Coronal and sagittal reformations were obtained. Coronal and sagittal MIPS were obtained from the axial data set and were submitted for review. Automated dose lowering techniques and/or adjustment according to patient size were utilized for this exam. CT DOSE: 692.17 mGy.cm Comparison: Comparison is made to CTA chest 11/05/2019 FINDINGS: Lungs and pleura: Airspace opacities are seen as prominently in the bilateral lower lobes. Groundglass densities are also noted in the right upper lung. Heart and pericardium: Heart size is normal. No pericardial effusion. Vessels: No evidence of pulmonary embolism. The pulmonary trunk measures 41 mm in diameter. Mediastinum and mer: Subcentimeter lymph nodes are seen. There is suggestion of subcentimeter nodes in the right hilum. Chest wall and lower neck: Unremarkable. Abdomen: A hiatal hernia is seen. Bones: Degenerative changes in the thoracic spine. IMPRESSION: 1. No evidence of pulmonary embolism. 2. Airspace opacities in the bilateral lower lungs may represent an element of atelectasis with superimposed pneumonia and/or aspiration. 3. Pulmonary hypertension. ACT 112: Negative or not required by law. Electronically signed by: Mannie Choudhury M.D. 12/07/2021 5:52 PM Discharge Plan Visit Data Chief Complaint: Shortness of Breath/Dyspnea Stated Complaint: SOB, FEVER ED Provider: Theodore Roland Discharge Problem: Pneumonia of both lower lobes, Hypoxia, PERKINS (dyspnea on exertion), Hypertensive urgency Patient Disposition: Being Evaluated by Hospitalist Forms Stand Alone Forms: [facility] Prescriptions Prescriptions: No Action indomethacin 25 mg capsule 50 mg PO TID PRN (Reason: GOUT FLARE UPS) RF: 0 ibuprofen [Motrin IB] 200 mg Tablet 400 mg PO DIRECTED PRN (Reason: Pain) RF: 0 Referrals Referrals: Trev Navarro MD [Primary Care Provider] - Discharge Problem: Pneumonia of both lower lobes Qualifiers: Pneumonia type: due to unspecified organism Qualified Code(s): J18.9 - Pneumo eloisa, unspecified organism
[2021-12-07 17:21] LABS: Influenza A virus by PCR Negative (Neg); Influenza B virus by PCR Negative (Neg); RSV by PCR Negative (Neg); SARS CoV2 RNA(COVID-19) InHosp NEGATIVE (Negative)
[2021-12-07] MEDS ORDERED: OPTIRAY 320 125ml IV ONE (17:37)
--- NOTE | 2021-12-07 17:54 | CT Scan Report ---
CT angio chest PE protocol CLINICAL HISTORY: PE, sob, hypoxia TECHNIQUE: Multidetector row helical CT of the chest was performed with angiographic protocol. Severino l and sagittal reformations were obtained. Coronal and sagittal MIPS were obtained from the axial nieves a set and were submitted for review. Automated dose lowering techniques and/or adjustment according to patient size were utilized for this exam. CT DOSE: 692.17 mGy.cm Comparison: Comparison is made to CTA chest 11/05/2019 FINDINGS: Lungs and pleura: Airspace opacities are seen as prominently in the bilateral lower lobes. Groundglas s densities are also noted in the right upper lung. Heart and pericardium: Heart size is normal. No pericardial effusion. Vessels: No evidence of pulmonary embolism. The pulmonary trunk measures 41 mm in diameter. Mediastinum and mer: Subcentimeter lymph nodes are seen. There is suggestion of subcentimeter nodes in the right hilum. Chest wall and lower neck: Unremarkable. Abdomen: A hiatal hernia is seen. Bones: Degenerative changes in the thoracic spine. IMPRESSION: 1. No evidence of pulmonary embolism. 2. Airspace opacities in the bilateral lower lungs may represent an element of atelectasis with supe rimposed pneumonia and/or aspiration. 3. Pulmonary hypertension. ACT 112: Negative or not required by law. Electronically signed by: Mannie Choudhury M.D. 12/07/2021 5:52 PM
[2021-12-07] MEDS ORDERED: AZITHROMYCIN 250 MG TAB PO ONE (18:02)
[2021-12-07] MEDS ORDERED: LABETALOL HCL IV 5 MG/ML 20ML IV STA (18:03)
--- NOTE | 2021-12-07 18:10 | History & Physical Report ---
Date of Service December 07, 2021 Assessment & Plan (1) Pneumonia of both lower lobes: (2) Hypoxia: (3) PERKINS (dyspnea on exertion): Plan: - Admit to med surg with tele - Sputum culture, mucinex, duonebs QID and Q2H prn, tesbre mccartney - Wean O2 prn - does not wear O2 at baseline, 95% on 2 L - Influenza swab neg, COVID and RSV negative - WBC at time of admission = 8.30 - BCx x 2, follow - Tmax = 102 at outpatient clinic - Lactic acid 0.9, Procalcitonin 0.86 - CXR reviewed as above - Continue antibiotic therapy with unasyn IV and azithromycin PO (4) Hypertension: Plan: - Start lisinopril 10 mg tonight, likely will need to advance this dose and possibly add additional medications pending BP - Given dose of IV lebatolol in the ER with minimal effects - Monitor DVT ppx; - teds, heparin subcu CODE: Full code Dispo: From home, likely to remain in the hospital x 1-2 days History of Present Illness Chief Complaint: Shortness of breath Primary Care Provider: Trev Navarro MD This is an 81-year-old male with PMHx of HTN, HLD, gout, obesity with BMI of 31.8, who presents to the hospital after visiting his PCP for complaints of cough, fever, chills x3 days. Pt notes his symptoms started on Saturday and that he was coughing quite a bit, and later that evening vomited once. He reports rinsing his mouth out and going back to bed. He states his cough worsened after this episode on Saturday but then Saturday his coughing symptoms seem to lessen. He was exposed to someone with COVID within the past week and was concerned he caught it, so went to his PCP office to get swabbed and checked out. He was found to be hypoxic at 85% with ambulation and improved with O2 2 L to 95%. He was also found to be febrile with Tmax of 102 at the office so was sent to the hospital. He is not vaccinated against COVID. He is negative upon coming to the ER for COVID, flu and RSV. 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 He was previously on lisinopril 40 mg daily. CTA is negative for PE but is concerning for bilateral lower lobe pneumonias. Lactic acid is 0.9, Pro-Danny is elevated at 0.86. Allergies Allergy/AdvReac Type Severity Reaction Status Date / Time No Known Allergies Allergy Verified 12/07/21 16:21 Home Medications Medication Instructions Recorded Confirmed Type indomethacin 25 mg capsule 50 mg PO TID PRN 11/05/19 12/07/21 History ibuprofen 200 mg tablet (Motrin IB) 400 mg PO DIRECTED PRN 12/07/21 12/07/21 History Past Med/Surg History Medical History Gout HLD (hyperlipidemia) History of hyperlipidemia but does not take cholesterol medication Hypertension Surgical History History of appendectomy History of tonsillectomy and adenoidectomy Hx of tonsillectomy age 5 Family History (Updated 12/07/21 @ 18:08 by Morenita Guerra PA-C) Father , 62 Myocardial infarction Coronary heart disease Other Dyslipidemia Heart disease Social History (Updated 12/07/21 @ 18:22 by Morenita Guerra PA-C) Smoking Status: Former smoker Tobacco Type: Cigarettes packs per day: 4; Number of Years Since Quit: 38; Second Hand Exposure: No; Hx Alcohol Use: Yes Alcohol type: beer Alcohol type Comment: 3 beers per week, last beer 1 week ago Hx Substance Use: No Preferred Language: Micronesian Communication Ability: Effective Loan Specialist Required: No Beliefs That Will Affect Care: None marital status: Single Current Living Situation: Alone Feels Safe at Home: Yes Assistive Devices: None Review of Systems Review of Systems: Constitutional: As per HPI, + fever, no sweats or chills Eyes: No diplopia, no worsening or blurred vision ENT: normal hearing, no trouble swallowing Respiratory: As per HPI Cardiovascular: No chest pain, tightness or palpitations Abdomen: As per HPI, currently no pain, nausea, vomiting, diarrhea or constipation Musculoskeletal: No joint pain, calf pain, swelling Neurologic: No weakness, numbness/tingling, or balance problems Psychiatric: No anxiety or depression Skin: No rash or itch Physical Exam Physical Exam: General: awake, alert, no apparent distress Head: Normocephalic, atraumatic ENT: PERRL, EOMI, no pharyngeal exudate, mucous membranes moist Chest: Diminished breath sounds at bases bilaterally, + crackles worse in RLL compared to left, on 2L via NC with O2 sats at 100% at rest, no rales or wheeze Cardiac: Regular rate and rhythm, no murmur, no JVD, normal peripheral pulses, good capillary refill Abdominal: NABS x 4 quadrants, soft, nondistended, nontender to palpation, no rebound or guarding Extremities: Normal inspection, no peripheral edema or erythema, calfs nontender to palpation Psych: Normal mood and affect Neuro: AAO x 3, strength intact bilaterally and rated 5/5, no motor deficits, s peech is clear, no peripheral sensory deficits Results & Data Results & Data ([facility]) Vital Signs (Past 12 Hours) Vital Signs Temp Pulse Resp BP Pulse Ox 12/07/21 17:30 65 12 100 12/07/21 17:12 81 19 199/101 H 100 12/07/21 17:00 71 21 99 12/07/21 16:30 73 19 97 12/07/21 16:15 73 17 96 12/07/21 16:00 75 18 97 12/07/21 15:49 63 24 96 12/07/21 15:45 77 16 95 12/07/21 15:30 85 20 96 12/07/21 15:15 78 12 201/104 H 94 12/07/21 15:00 91 H 17 100 12/07/21 14:59 88 26 H 100 12/07/21 14:54 37.3 C 88 26 H 225/106 H 91 Laboratory Results 12/07/21 17:15 Aerobic Blood Culture - Pending Blood Anaerobic Blood Culture - Pending 12/07/21 17:27 Aerobic Blood Culture - Pending Blood Anaerobic Blood Culture - Pending 12/07/21 12/07/21 12/07/21 17:27 16:00 16:00 WBC RBC Hgb Hct MCV MCH MCHC RDW Std Deviation RDW Coeff of Kathy Plt Count MPV Immature Gran % (Auto) Neut % (Auto) Lymph % (Auto) [place] % (Auto) Eos % (Auto) Baso % (Auto) Neut # (Auto) Lymph # (Auto) [place] # (Auto) Eos # (Auto) Baso # (Auto) Immature Gran # (Auto) PT INR Sodium 132 L Potassium 3.9 Chloride 94 L Carbon Dioxide 27 Anion Gap 11 BUN 18 Creatinine 0.82 Est Cr Clr Drug Dosing 78.9 Est GFR ( Amer) 96.1 Est GFR (Non-Af Amer) 82.9 BUN/Creatinine Ratio 22.0 H Glucose 100 H Lactate 0.9 Calcium 9.2 Magnesium 2.0 Total Bilirubin 0.8 AST 19 ALT 21 Alkaline Phosphatase 52 Troponin I High Sens 7.2 Total Protein 7.5 Albumin 4.2 Globulin 3.3 Albumin/Globulin Ratio 1.3 Procalcitonin 0.86 H SARS-CoV-2 (PCR) Influenza Type A (PCR) Influenza Type B (PCR) RSV (RT-PCR) 12/07/21 12/07/21 12/07/21 16:00 16:00 15:05 WBC 8.30 RBC 4.63 L Hgb 14.8 Hct 42.9 MCV 92.7 MCH 32.0 MCHC 34.5 RDW Std Deviation 47.2 H RDW Coeff of Kathy 13.9 Plt Count 253 MPV 10.0 Immature Gran % (Auto) 0.7 Neut % (Auto) 69.1 Lymph % (Auto) 17.1 [place] % (Auto) 11.6 Eos % (Auto) 1.3 Baso % (Auto) 0.2 Neut # (Auto) 5.73 Lymph # (Auto) 1.42 [place] # (Auto) 0.96 H Eos # (Auto) 0.11 Baso # (Auto) 0.02 Immature Gran # (Auto) 0.06 H PT 11.1 INR 1.0 Sodium Potassium Chloride Carbon Dioxide Anion Gap BUN Creatinine Est Cr Clr Drug Dosing Est GFR ( Amer) Est GFR (Non-Af Amer) BUN/Creatinine Ratio Glucose Lactate Calcium Magnesium Total Bilirubin AST ALT Alkaline Phosphatase Troponin I High Sens Total Protein Albumin Globulin Albumin/Globulin Ratio Procalcitonin SARS-CoV-2 (PCR) NEGATIVE Influenza Type A (PCR) Negative Influenza Type B (PCR) Negative RSV (RT-PCR) Negative Diagnostic Findings Chest X-Ray 12/07/21 15:15 SINGLE VIEW CHEST CLINICAL HISTORY: Dyspnea. FINDINGS: An AP, portable, upright chest radiograph is compared to chest x-ray and chest CT dated 11/05/2019. The heart is enlarged noting atherosclerotic calcification of the thoracic aorta. The pulmonary vasculature is noncongested. There is chronic elevation of the right hemidiaphragm. Airspace opacities are seen at the medial right lung base. There is left basilar atelectasis. No large pleural effusion or pneumothorax is identified. The skeletal structures are osteopenic. The bony thorax is grossly intact. Arthritic change is noted in the shoulders. IMPRESSION: 1. Cardiomegaly without radiographic evidence of congestive failure. 2. Airspace opacities are seen at the medial right lung base. This could represent atelectasis versus an infectious/inflammatory pneumonitis and clinical correlation will be required. ACT 112: Negative or not required by law. Electronically signed by: Prasanna Babin M.D. 12/07/2021 3:32 PM Chest CTA 12/07/21 16:51 CT angio chest PE protocol CLINICAL HISTORY: PE, sob, hypoxia TECHNIQUE: Multidetector row helical CT of the chest was performed with angiographic protocol. Coronal and sagittal reformations were obtained. Coronal and sagittal MIPS were obtained from the axial data set and were submitted for review. Automated dose lowering techniques and/or adjustment according to patient size were utilized for this exam. CT DOSE: 692.17 mGy.cm Comparison: Comparison is made to CTA chest 11/05/2019 FINDINGS: Lungs and pleura: Airspace opacities are seen as prominently in the bilateral lower lobes. Groundglass densities are also noted in the right upper lung. Heart and pericardium: Heart size is normal. No pericardial effusion. Vessels: No evidence of pulmonary embolism. The pulmonary trunk measures 41 mm in diameter. Mediastinum and mer: Subcentimeter lymph nodes are seen. There is suggestion of subcentimeter nodes in the right hilum. Chest wall and lower neck: Unremarkable. Abdomen: A hiatal hernia is seen. Bones: Degenerative changes in the thoracic spine. IMPRESSION: 1. No evidence of pulmonary embolism. 2. Airspace opacities in the bilateral lower lungs may represent an element of atelectasis with superimposed pneumonia and/or aspiration. 3. Pulmonary hypertension. ACT 112: Negative or not required by law. Electronically signed by: Mannie Choudhury M.D. 12/07/2021 5:52 PM Supervising Physician Co-Signing Physician Notes Date of Service: December 07, 2021 History and physical exam performed by me History notable for 81-year-old man with history of of hypertension [blood reported that he has been off antihypertensive for the past 2 years due to normal blood pressure during last hospitalization], gout who presented from PCPs office for respiratory symptoms and hypoxia at the office. Patient reported that he started coughing on Saturday, cough worsened Saturday night after he vomitted. Denied any sore throat, rhinorrhea, congestion. Denied fevers at home but reported that he had a temperature of 102 at the PCPs office today and was noted to be hypoxic to 85% on room air at the PCPs office and was put on oxygen and directed to the ER. Physical exam notable for elderly patient in no obvious distress, on nasal cannula, basilar crackles, elevated blood pressure Lab work notable for sodium of 132, procalcitonin of 0.86. Negative COVID/flu/RSV CT angiogram negative for PE but showed bilateral lower lung airspace opacities. Acute respiratory failure with hypoxia Pneumonia Possible aspiration pneumonia based on history. Hypertensive urgency Unasyn and azithromycin Continue oxygen supplementation. Wean as tolerated Patient reported that he was on lisinopril in the past prior to stopping antihypertensive. Will resume her lisinopril 10 mg and monitor. Will likely need adjustment plus or minus additional antihypertensive for better blood pressure control. Agree with plans as detailed by Morenita Guerra PA-C (1) Pneumonia of both lower lobes Pneumonia type: due to unspecified organism Qualified Code(s): J18.9 - Pneumonia, unspecified organism
[2021-12-07] MEDS ORDERED: hydrALAZINE HCL 20 MG/ML VIAL IV STA (18:36)
--- NOTE | 2021-12-07 18:36 | Communication Note ---
Date of Service: December 07, 2021 History and physical exam performed by me History notable for 81-year-old man with history of of hypertension [blood reported that he has been off antihypertensive for the past 2 years due to normal blood pressure during last hospitalization], gout who presented from PCPs office for respiratory symptoms and hypoxia at the office. Patient reported that he started coughing on Saturday, cough worsened Saturday night after he vomitted. Denied any sore throat, rhinorrhea, congestion. Denied fevers at home but reported that he had a temperature of 102 at the PCPs office today and was noted to be hypoxic to 85% on room air at the PCPs office and was put on oxygen and directed to the ER. Physical exam notable for elderly patient in no obvious distress, on nasal cannula, basilar crackles, elevated blood pressure Lab work notable for sodium of 132, procalcitonin of 0.86. Negative COVID/flu/RSV CT angiogram negative for PE but showed bilateral lower lung airspace opacities. Acute respiratory failure with hypoxia Pneumonia Possible aspiration pneumonia based on history. Hypertensive urgency Unasyn and azithromycin Continue oxygen supplementation. Wean as tolerated Patient reported that he was on lisinopril in the past prior to stopping antihypertensive. Will resume her lisinopril 10 mg and monitor. Will likely need adjustment plus or minus additional antihypertensive for better blood pressure control. Agree with plans as detailed by Morenita Guerra PA-C
[2021-12-07] MEDS ORDERED: ACETAMINOPHEN 325 MG TAB PO PRN (20:10)
[2021-12-07] MEDS ORDERED: ONDANSETRON INJ 2 MG/ML 2 ML VIAL IV PRN (20:10)
[2021-12-07] MEDS ORDERED: lisinopril 10 MG TAB PO ONE (20:30)
[2021-12-07] MEDS: AMPICILLIN/SULBACTAM SOD 3,000 MG in 0.9 % SODIUM CHLORIDE 100 ML IV SCH (20:34)
[2021-12-07] MEDS: ALBUT/IPRATROP 3MG/0.5MG NEB 3 ML VIAL NEB SCH ×2 (21:00→23:00)
[2021-12-07] MEDS: lisinopril 10 MG TAB PO SCH (21:21)
[2021-12-07] MEDS: HEPARIN SOD 5,000 UNIT/0.5 ML VIAL SQ SCH (21:22)
[2021-12-07] MEDS: BENZONATATE 100 MG CAPSULE PO SCH (21:25)
[2021-12-07] MEDS: guaiFENesin 600 MG TABCR PO SCH (22:04)
[2021-12-07 23:53] LABS: Appearance Urine Clear (Clear); Bacteria Urine Automated Negative (Negative); Bilirubin Urine Negative (Negative); Blood Urine Negative (Negative); Cast Urine Automated 0 /lpf (0-5); Color Urine Yellow; Epithelial Cell Urine Auto 0-5 /lpf (0-5); Glucose Urine UA Negative (Negative); Ketones Urine Trace (Negative); Leukocyte Esterase Urine Negative (Negative); Nitrite Urine Negative (Negative); Protein Urine Trace (Negative); RBC Urine Automated 0-4 /hpf (0-4); Specific Gravity Urine 1.035 (1.000-1.030); Urobilinogen Urine Negative (Negative); pH Urine 6.5 (4.5-7.5)
[2021-12-08] MEDS: ALBUT/IPRATROP 3MG/0.5MG NEB 3 ML VIAL NEB SCH ×6 (02:12→21:37)
[2021-12-08] MEDS: AMPICILLIN/SULBACTAM SOD 3,000 MG in 0.9 % SODIUM CHLORIDE 100 ML IV SCH ×4 (02:45→21:11)
[2021-12-08 08:28] LABS: Hematocrit (blood only) 44.2 % (42-52); Hemoglobin 14.9 g/dL (14.0-18.0); Mean Corpuscular Hgb Conc 33.7 g/dL (32-36); Mean Corpuscular Volume 92.1 fL (80-100); Mean Platelet Volume 9.9 fL (7.4-10.4); Platelet Count 223 K/uL (130-400); RDW Coefficient of Variation 14.2 % (11.5-14.5); RDW Standard Deviation 47.7 fL (36.4-46.3); White Blood Count 8.64 K/uL (4.8-10.8)
[2021-12-08 08:35] LABS: Albumin Globulin Ratio 1.3 (0.9-2); Albumin Level 4.1 gm/dl (3.4-5.0); BUN Creatinine Ratio 17.9 (10-20); Bilirubin,Total 0.8 mg/dl (0.2-1.0); Creatinine Clr Calc Pharmacy 83.3 ml/min; Est GFR (African American) 98.1 ml/min; Est GFR (Non-African American) 84.7 ml/min; Globulin 3.2 gm/dl (2.5-4.0); Total Protein 7.3 gm/dl (6.0-8.3)
[2021-12-08] MEDS: guaiFENesin 600 MG TABCR PO SCH ×2 (08:46→21:08)
[2021-12-08] MEDS: HEPARIN SOD 5,000 UNIT/0.5 ML VIAL SQ SCH ×2 (08:47→21:09)
[2021-12-08] MEDS: BENZONATATE 100 MG CAPSULE PO SCH ×3 (08:50→21:11)
[2021-12-08] MEDS: lisinopril 10 MG TAB PO SCH (08:51)
[2021-12-08] MEDS: AZITHROMYCIN 250 MG TAB PO SCH (08:51)
--- NOTE | 2021-12-08 10:17 | Electrocardiogram Report ---
Test Reason : Blood Pressure : / mmHG Vent. Rate : 088 BPM Atrial Rate : 088 BPM P-R Int : 158 ms QRS Dur : 092 ms QT Int : 348 ms P-R-T Axes : 046 -61 069 degrees QTc Int : 421 ms Sinus rhythm with Premature atrial complexes Incomplete right bundle branch block Left anterior fascicular block Left ventricular hypertrophy with repolarization abnormality Abnormal ECG When compared with ECG of 05-NOV-2019 12:50, Premature atrial complexes are now Present Incomplete right bundle branch block is now Present Confirmed by Ranulfo Jack ([id number]) on 12/08/2021 10:17:25 AM Referred By: REFERRED SELF Confirmed By:Ranulfo Jack
[2021-12-08] MEDS ORDERED: hydrALAZINE 10 MG TAB PO PRN (15:02)
--- NOTE | 2021-12-08 15:05 | Hospitalist Progress Note ---
Date of Service December 08, 2021 Assessment & Plan (1) Pneumonia of both lower lobes: Plan: Acute respiratory failure with hypoxia Multifocal Pneumonia Possible aspiration --CTA:No evidence of pulmonary embolism. Airspace opacities in the bilateral lower lungs may represent an element of atelectasis with superimposed pneumonia and/or aspiration. Pulmonary hypertension. Procalcitonin slightly elevated --COVID, influenza, RSV negative Blood cultures pending Continue Unasyn, azithromycin Wean off of supplemental oxygen as able (2) Hypertension: Plan: Hypertensive urgency Currently not on any meds Started on lisinopril Hydralazine PRN Monitor Hyponatremia Likely chronic Monitor Sodium levels DVT Px: Heparin SQ CODE STATUS: Full code Admission and Anticipated Discharge Date Admission Date: December 07, 2021 Subjective Patient is seen and examined at bedside States feeling much better today Cough, dyspnea much improved Denies any chest pain, dizziness, nausea, abdominal pain Offers no other complaints Review of Systems Review of Systems: All systems reviewed & are unremarkable except as noted in Subjective Physical Exam Physical Exam: Physical Exam: Vitals signs as noted above General Appearance:Moderately built and nourished, no apparent distress Head: normocephalic, Atraumatic Eyes: normal inspection, EOMI Neck: supple, Trachea midline Respiratory/Chest: Normal breath sounds, minimal basal crackles, No accessory muscle use Cardiovascular: S1, S2, No murmur Abdomen/GI:Soft, Non tender, Bowel sounds present Extremities/Musculoskeletal:normal inspection, no edema Neurologic/Psych:AAOX3, grossly no focal neurological deficits Skin: normal color, warm Results & Data Results & Data ([facility]) Vital Signs (Past 12 Hours) Vital Signs Temp Pulse Pulse Resp BP Pulse Ox Pulse Ox 12/08/21 14:46 75 20 90 12/08/21 14:04 95 12/08/21 13:07 94 12/08/21 11:04 36.7 C 77 20 185/81 H 95 12/08/21 07:39 72 20 94 12/08/21 07:30 60 12/08/21 06:48 36.8 C 64 18 181/82 H 93 12/08/21 04:57 36.7 C 60 18 163/91 H 95 Pulse Ox 12/08/21 14:46 12/08/21 14:04 96 12/08/21 13:07 12/08/21 11:04 12/08/21 07:39 07/01/22 07:30 12/08/21 06:48 12/08/21 04:57 Laboratory Results Short CBC 12/07/21 12/08/21 Range/Units 16:00 07:45 WBC 8.30 8.64 (4.8-10.8) K/uL Hgb 14.8 14.9 (14.0-18.0) g/dL Hct 42.9 44.2 (42-52) % Plt Count 253 223 (130-400) K/uL BMP 12/07/21 12/08/21 16:00 07:45 Sodium 132 L 132 L Potassium 3.9 4.0 Chloride 94 L 95 L Carbon Dioxide 27 27 BUN 18 14 Creatinine 0.82 0.78 Glucose 100 H 115 H Calcium 9.2 9.0 Liver Function 12/07/21 12/08/21 Range/Units 16:00 07:45 Total Bilirubin 0.8 0.8 (0.2-1.0) mg/dl AST 19 15 (13-39) U/L ALT 21 20 (7-52) U/L Alkaline Phosphatase 52 48 (34-104) U/L Albumin 4.2 4.1 (3.4-5.0) gm/dl Urine 12/07/21 Range/Units 23:45 Urine Color Yellow Urine Appearance Clear (Clear) Urine pH 6.5 (4.5-7.5) Ur Specific [place] 1.035 H (1.000-1.030) Urine Protein Trace H (Negative) Urine Glucose (UA) Negative (Negative) (1) Pneumonia of both lower lobes Pneumonia type: due to unspecified organism Qualified Code(s): J18.9 - Pneumonia, unspecified organism
[2021-12-09] MEDS: AMPICILLIN/SULBACTAM SOD 3,000 MG in 0.9 % SODIUM CHLORIDE 100 ML IV SCH ×4 (01:54→20:50)
[2021-12-09] MEDS: ALBUT/IPRATROP 3MG/0.5MG NEB 3 ML VIAL NEB SCH ×4 (06:58→20:06)
[2021-12-09] MEDS: guaiFENesin 600 MG TABCR PO SCH ×2 (08:08→20:48)
[2021-12-09] MEDS: lisinopril 10 MG TAB PO SCH (08:08)
[2021-12-09] MEDS: HEPARIN SOD 5,000 UNIT/0.5 ML VIAL SQ SCH ×2 (08:09→20:48)
[2021-12-09] MEDS: AZITHROMYCIN 250 MG TAB PO SCH (08:09)
[2021-12-09] MEDS: BENZONATATE 100 MG CAPSULE PO SCH ×3 (08:10→20:50)
[2021-12-09 08:40] LABS: Albumin Globulin Ratio 1.3 (0.9-2); BUN Creatinine Ratio 18.8 (10-20); Bilirubin,Total 0.7 mg/dl (0.2-1.0); Est GFR (African American) 94.7 ml/min; Est GFR (Non-African American) 81.7 ml/min; Globulin 3.1 gm/dl (2.5-4.0); Total Protein 7.1 gm/dl (6.0-8.3)
--- NOTE | 2021-12-09 15:55 | Hospitalist Progress Note ---
Date of Service December 09, 2021 Assessment & Plan (1) Pneumonia of both lower lobes: Plan: Acute respiratory failure with hypoxia Multifocal Pneumonia Possible aspiration --CTA:No evidence of pulmonary embolism. Airspace opacities in the bilateral lower lungs may represent an element of atelectasis with superimposed pneumonia and/or aspiration. Pulmonary hypertension. Procalcitonin slightly elevated --COVID, influenza, RSV negative Blood cultures No growth to date Continue Unasyn, azithromycin Saturating low 90s on room air Clinically improving May need 2 step prior to discharge (2) Hypertension: Plan: Hypertensive urgency Currently not on any meds Started on lisinopril Hydralazine PRN Monitor Hyponatremia Likely chronic Monitor Sodium levels Sodium 133 today DVT Px: Heparin SQ CODE STATUS: Full code Admission and Anticipated Discharge Date Admission Date: December 07, 2021 Subjective Patient is seen and examined at bedside No new complaints Dyspnea resolved Still has some cough with expectoration Denies any chest pain, dizziness, nausea, abdominal pain Review of Systems Review of Systems: All systems reviewed & are unremarkable except as noted in Subjective Physical Exam Physical Exam: Physical Exam: Vitals signs as noted above General Appearance:Moderately built and nourished, no apparent distress Head: normocephalic, Atraumatic Eyes: normal inspection, EOMI Neck: supple, Trachea midline Respiratory/Chest: Normal breath sounds, CTA, No accessory muscle use Cardiovascular: S1, S2, No murmur Abdomen/GI:Soft, Non tender, Bowel sounds present Extremities/Musculoskeletal:normal inspection, no edema Neurologic/Psych:AAOX3, grossly no focal neurological deficits Skin: normal color, warm Results & Data Results & Data ([facility]) Vital Signs (Past 12 Hours) Vital Signs Temp Pulse Pulse Resp BP Pulse Ox 12/09/21 15:33 37.0 C 83 20 162/76 H 91 12/09/21 14:12 80 17 96 12/09/21 11:33 36.9 C 84 20 189/89 H 96 12/09/21 10:53 80 17 98 12/09/21 07:40 37.1 C 84 20 176/88 H 96 12/09/21 07:06 68 12/09/21 06:58 18 Laboratory Results [facility] 12/09/21 07:38 Sodium 133 L Potassium 4.0 Chloride 97 L Carbon Dioxide 28 BUN 16 Creatinine 0.85 Glucose 118 H Calcium 9.0 Liver Function 12/09/21 Range/Units 07:38 Total Bilirubin 0.7 (0.2-1.0) mg/dl AST 17 (13-39) U/L ALT 25 (7-52) U/L Alkaline Phosphatase 46 (34-104) U/L Albumin 4.0 (3.4-5.0) gm/dl (1) Pneumonia of both lower lobes Pneumonia type: due to unspecified organism Qualified Code(s): J18.9 - Pneumonia, unspecified organism
[2021-12-09 20:23] LABS: A calco-baum cmplx NotReported Not Detected (NotDetected); Bact fragilis Not Reported Not Detected (NotDetected); C auris Not Reported Not Detected (NotDetected); Calbicans Not Reported Not Detected (NotDetected); Candida glabrata Not Reported Not Detected (NotDetected); Candida krusei Not Reported Not Detected (NotDetected); Cneoformans/gatti Not Reported Not Detected (NotDetected); Cparapsilosis Not Reported Not Detected (NotDetected); Ctropicalis Not Reported Not Detected (NotDetected); E cloacae compx Not Reported Not Detected (NotDetected); Efaecalis Not Reported Not Detected (NotDetected); Efaecium Not Reported Not Detected (NotDetected); Enterobacterales Not Reported Not Detected (NotDetected); Escherichia coli Not Reported Not Detected (NotDetected); H influenzae Not Reported Not Detected (NotDetected); K aerogenes Not Reported Not Detected (NotDetected); Koxytoca Not Reported Not Detected (NotDetected); Kpneumoniae grp Not Reported Not Detected (NotDetected); Lmonocyt Not Reported Not Detected (NotDetected); N meningitidis Not Reported Not Detected (NotDetected); P aeruginosa Not Reported Not Detected (NotDetected); Proteus spp Not Reported Not Detected (NotDetected); Salmonella spp Not Reported Not Detected (NotDetected); Smarcescens Not Reported Not Detected (NotDetected); Staph lugdunensis Not Reported Not Detected (NotDetected); Staph spp. Not Reported DETECTED (NotDetected); Staphaureus Not Reported Not Detected (NotDetected); Staphepi Not Reported DETECTED (NotDetected); Staphylococcus epidermidis DETECTED (NotDetected); Stenmaltophilia Not Reported Not Detected (NotDetected); Strep agal(GrpB) Not Reported Not Detected (NotDetected); Strep pneum Not Reported Not Detected (NotDetected); Strep pyog (GrpA) Not Reported Not Detected (NotDetected); Strep spp Not Reported Not Detected (NotDetected); mecAC Resistant Gene Not Detected (NotDetected)
[2021-12-09 20:41] LABS: Staphylococcus spp. DETECTED (NotDetected)
[2021-12-09] MEDS ORDERED: VANCOMYCIN CONSULT ACTIVE PRN (21:00)
--- NOTE | 2021-12-09 21:01 | Communication Note ---
Date of Service: December 09, 2021
[2021-12-09] MEDS ORDERED: VANCOMYCIN HCL 2,250 MG in SODIUM CHLORIDE 0.9% 500 ML IV ONE (21:15)
[2021-12-10] MEDS: AMPICILLIN/SULBACTAM SOD 3,000 MG in 0.9 % SODIUM CHLORIDE 100 ML IV SCH ×4 (02:05→19:59)
[2021-12-10 06:43] LABS: Hematocrit (blood only) 44.3 % (42-52); Hemoglobin 14.7 g/dL (14.0-18.0); Mean Corpuscular Hgb Conc 33.2 g/dL (32-36); Mean Corpuscular Volume 93.5 fL (80-100); Mean Platelet Volume 9.7 fL (7.4-10.4); Platelet Count 282 K/uL (130-400); RDW Coefficient of Variation 14.2 % (11.5-14.5); RDW Standard Deviation 48.5 fL (36.4-46.3); Red Blood Count 4.74 M/uL (4.7-6.1); White Blood Count 9.92 K/uL (4.8-10.8)
[2021-12-10] MEDS: ALBUT/IPRATROP 3MG/0.5MG NEB 3 ML VIAL NEB SCH ×2 (07:13→11:19)
[2021-12-10] MEDS: BENZONATATE 100 MG CAPSULE PO SCH ×3 (08:17→20:00)
[2021-12-10] MEDS: lisinopril 10 MG TAB PO SCH (08:18)
[2021-12-10] MEDS: HEPARIN SOD 5,000 UNIT/0.5 ML VIAL SQ SCH ×2 (08:18→19:59)
[2021-12-10] MEDS: guaiFENesin 600 MG TABCR PO SCH ×2 (08:18→19:59)
[2021-12-10] MEDS: AZITHROMYCIN 250 MG TAB PO SCH (08:19)
[2021-12-10] MEDS ORDERED: ALBUT/IPRATROP 3MG/0.5MG NEB 3 ML VIAL NEB PRN (12:05)
--- NOTE | 2021-12-10 15:08 | Hospitalist Progress Note ---
Date of Service December 10, 2021 Assessment & Plan (1) Pneumonia of both lower lobes: Plan: Acute respiratory failure with hypoxia Multifocal Pneumonia Possible aspiration --CTA:No evidence of pulmonary embolism. Airspace opacities in the bilateral lower lungs may represent an element of atelectasis with superimposed pneumonia and/or aspiration. Pulmonary hypertension. Procalcitonin slightly elevated --COVID, influenza, RSV negative Blood cultures 1/2: Gram-positive cocci in clusters. PCR:Staph.Epidermidis Repeat Blood Cx:pending Continue Unasyn, azithromycin Saturating well on room air Clinically improving Nebs PRN Continue current management (2) Hypertension: Plan: Hypertensive urgency Currently not on any meds Started on lisinopril Hydralazine PRN Monitor BP better Hyponatremia Likely chronic Monitor Sodium levels Sodium 133 today DVT Px: Heparin SQ CODE STATUS: Full code Admission and Anticipated Discharge Date Admission Date: December 07, 2021 Subjective Patient is seen and examined at bedside Doing well Saturating well on room air Blood culture growing gram-positive cocci Minimal cough with expectoration No other complaints Denies any chest pain, dizziness, nausea, abdominal pain Review of Systems Review of Systems: All systems reviewed & are unremarkable except as noted in Subjective Physical Exam Physical Exam: Physical Exam: Vitals signs as noted above General Appearance:Moderately built and nourished, no apparent distress Head: normocephalic, Atraumatic Eyes: normal inspection, EOMI Neck: supple, Trachea midline Respiratory/Chest: Normal breath sounds, CTA, No accessory muscle use Cardiovascular: S1, S2, No murmur Abdomen/GI:Soft, Non tender, Bowel sounds present Extremities/Musculoskeletal:normal inspection, no edema Neurologic/Psych:AAOX3, grossly no focal neurological deficits Skin: normal color, warm Results & Data Results & Data ([facility]) Vital Signs (Past 12 Hours) Vital Signs Temp Pulse Pulse Resp BP BP Pulse Ox 12/10/21 12:30 37.1 C 71 17 146/82 H 99 12/10/21 11:20 90 18 94 12/10/21 08:16 36.9 C 77 18 157/77 H 94 12/10/21 08:00 72 12/10/21 07:13 69 17 93 12/10/21 03:31 37.1 C 81 18 148/79 H 94 Laboratory Results Short CBC 12/10/21 Range/Units 05:34 WBC 9.92 (4.8-10.8) K/uL Hgb 14.7 (14.0-18.0) g/dL Hct 44.3 (42-52) % Plt Count 282 (130-400) K/uL (1) Pneumonia of both lower lobes Pneumonia type: due to unspecified organism Qualified Code(s): J18.9 - Pneumonia, unspecified organism
[2021-12-11] MEDS: AMPICILLIN/SULBACTAM SOD 3,000 MG in 0.9 % SODIUM CHLORIDE 100 ML IV SCH ×2 (01:36→08:42)
[2021-12-11 06:24] LABS: Anion Gap 6 (3-11); BUN Creatinine Ratio 22.2 (10-20); Blood Urea Nitrogen 18 mg/dl (6-23); Calcium 8.6 mg/dl (8.5-10.1); Carbon Dioxide 28 mmol/L (21-32); Chloride 98 mmol/L (98-107); Creatinine Clr Calc Pharmacy 80.8 ml/min; Est GFR (African American) 96.6 ml/min; Est GFR (Non-African American) 83.4 ml/min; Glucose 110 mg/dl (70-99(Fasting)); Sodium 132 mmol/L (136-145)
[2021-12-11] MEDS: lisinopril 10 MG TAB PO SCH (08:40)
[2021-12-11] MEDS: HEPARIN SOD 5,000 UNIT/0.5 ML VIAL SQ SCH (08:40)
[2021-12-11] MEDS: guaiFENesin 600 MG TABCR PO SCH (08:40)
[2021-12-11] MEDS: AZITHROMYCIN 250 MG TAB PO SCH (08:40)
[2021-12-11] MEDS: BENZONATATE 100 MG CAPSULE PO SCH (08:42)
--- NOTE | 2021-12-11 12:36 | Hospitalist Progress Note ---
Date of Service December 11, 2021 Assessment & Plan (1) Pneumonia of both lower lobes: Plan: Acute respiratory failure with hypoxia Multifocal Pneumonia Possible aspiration --CTA:No evidence of pulmonary embolism. Airspace opacities in the bilateral lower lungs may represent an element of atelectasis with superimposed pneumonia and/or aspiration. Pulmonary hypertension. Procalcitonin slightly elevated --COVID, influenza, RSV negative Blood cultures 1/2: Coag negative Staph--Likely contamination Repeat Blood Cx:No growth Continue Unasyn, azithromycin Saturating well on room air Nebs PRN Plan to discharge home today (2) Hypertension: Plan: Hypertensive urgency Currently not on any meds Started on lisinopril Hydralazine PRN Monitor BP better Hyponatremia Likely chronic Monitor Sodium levels Sodium 132 DVT Px: Heparin SQ CODE STATUS: Full code Admission and Anticipated Discharge Date Admission Date: December 07, 2021 Subjective Patient is seen and examined at bedside Cough much improved No new complaints Saturating well on room air Denies any chest pain, dizziness, nausea, abdominal pain Review of Systems Review of Systems: All systems reviewed & are unremarkable except as noted in Subjective Physical Exam Physical Exam: Physical Exam: Vitals signs as noted above General Appearance:Moderately built and nourished, no apparent distress Head: normocephalic, Atraumatic Eyes: normal inspection, EOMI Neck: supple, Trachea midline Respiratory/Chest: Normal breath sounds, CTA, No accessory muscle use Cardiovascular: S1, S2, No murmur Abdomen/GI:Soft, Non tender, Bowel sounds present Extremities/Musculoskeletal:normal inspection, no edema Neurologic/Psych:AAOX3, grossly no focal neurological deficits Skin: normal color, warm Results & Data Results & Data ([facility]) Vital Signs (Past 12 Hours) Vital Signs Temp Pulse Pulse Resp BP Pulse Ox 12/11/21 07:40 72 12/11/21 07:04 37.0 C 79 18 155/76 H 94 12/11/21 03:03 36.8 C 73 18 160/79 H 95 Laboratory Results BMP 12/11/21 12/11/21 05:26 06:33 Sodium 132 L Potassium TNP 4.4 Chloride 98 Carbon Dioxide 28 BUN 18 Creatinine 0.81 Glucose 110 H Calcium 8.6 (1) Pneumonia of both lower lobes Pneumonia type: due to unspecified organism Qualified Code(s): J18.9 - Pneumonia, unspecified organism
--- NOTE | 2021-12-11 12:49 | Discharge Summary ---
Date of Service December 11, 2021 Admission HPI Per Admitting Provider This is an 81-year-old male with PMHx of HTN, HLD, gout, obesity with BMI of 31.8, who presents to the hospital after visiting his PCP for complaints of cough, fever, chills x3 days. Pt notes his symptoms started on Saturday and that he was coughing quite a bit, and later that evening vomited once. He reports rinsing his mouth out and going back to bed. He states his cough worsened after this episode on Saturday but then Saturday his coughing symptoms seem to lessen. He was exposed to someone with COVID within the past week and was concerned he caught it, so went to his PCP office to get swabbed and checked out. He was found to be hypoxic at 85% with ambulation and improved with O2 2 L to 95%. He was also found to be febrile with Tmax of 102 at the office so was sent to the hospital. He is not vaccinated against COVID. He is negative upon coming to the ER for COVID, flu and RSV. 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 He was previously on lisinopril 40 mg daily. CTA is negative for PE but is concerning for bilateral lower lobe pneumonias. Lactic acid is 0.9, Pro-Danny is elevated at 0.86. Admission Exam Per Admitting Provider Physical Exam Physical Exam: General: awake, alert, no apparent distress Head: Normocephalic, atraumatic ENT: PERRL, EOMI, no pharyngeal exudate, mucous membranes moist Chest: Diminished breath sounds at bases bilaterally, + crackles worse in RLL compared to left, on 2L via NC with O2 sats at 100% at rest, no rales or wheeze Cardiac: Regular rate and rhythm, no murmur, no JVD, normal peripheral pulses, good capillary refill Abdominal: NABS x 4 quadrants, soft, nondistended, nontender to palpation, no rebound or guarding Extremities: Normal inspection, no peripheral edema or erythema, calfs nontender to palpation Psych: Normal mood and affect Neuro: AAO x 3, strength intact bilaterally and rated 5/5, no motor deficits, speech is clear, no peripheral sensory deficits Principal Diagnosis Acute respiratory failure with hypoxia Multifocal Pneumonia Hypertension Hyponatremia Discharge Data Allergies Allergy/AdvReac Type Severity Reaction Status Date / Time No Known Allergies Allergy Verified 12/07/21 16:21 Consultations 12/07/21 18:03 ED Decision to Admit Stat Ordered Studies 12/07/21 16:51 CT angio chest PE protocol Stat Hospital Course (1) Pneumonia of both lower lobes: Acute respiratory failure with hypoxia Multifocal Pneumonia Possible aspiration --CTA:No evidence of pulmonary embolism. Airspace opacities in the bilateral lower lungs may represent an element of atelectasis with superimposed pneumonia and/or aspiration. Pulmonary hypertension. Procalcitonin slightly elevated --COVID, influenza, RSV negative Blood cultures 1/2: Coag negative Staph--Likely contamination Repeat Blood Cx:No growth Continue Unasyn, azithromycin Saturating well on room air Nebs PRN Plan to discharge home today (2) Hypertension: Hypertensive urgency Currently not on any meds Started on lisinopril Hydralazine PRN Monitor BP better Hyponatremia Likely chronic Monitor Sodium levels Sodium 132 DVT Px: Heparin SQ CODE STATUS: Full code Total Time Total Time Spent Total Time Spent (In Minutes): 43 minutes Discharge Plan Discharge Items Patient Disposition: Home - Self-Care Reason For Visit: PNEUMONIA, HYPOXIA Discharge Diagnosis: Acute respiratory failure with hypoxia Multifocal Pneumonia Hypertension Hyponatremia Activity: Per Instructions section Exercise/Sports: Gradually increase as tolerated Non-emergency contact: Primary Care Provider Call non-emergency contact if: you have any medication questions, your symptoms worsen, your pain is concerning for you and you have a fever Follow-up/Referrals: Trev Navarro MD [Primary Care Provider] - Diet: Heart Healthy Addtl Attending Provider Instructions: Follow-up with your primary care physician in 1 week as advised --- Final blood cultures are pending at the time of discharge. Follow-up with your physician for results. --Complete the antibiotic course Augmentin as prescribed. Seek immediate medical attention if your symptoms reoccur or worsen Please take all medications as instructed on discharge list below. Please call if you have any questions or problems. You can reach a [facility] hospitalist on duty at [facility] [address] 24 hours a day by calling [phone] Pending Studies at Discharge: Yes Studies:: Blood Culture Stand-Alone Forms: [facility] [employer], Smoking Cessation Medications and DC Order Prescriptions: New lisinopril 10 mg Tablet 10 mg PO QAM Qty: 30 RF: 1 benzonatate 100 mg Capsule 100 mg PO TID PRN (Reason: cough) Qty: 14 RF: 0 amoxicillin-pot clavulanate 875-125 mg tablet 1 tab PO BID Qty: 7 RF: 0 Continued indomethacin 25 mg capsule 50 mg PO TID PRN (Reason: GOUT FLARE UPS) RF: 0 ibuprofen [Motrin IB] 200 mg Tablet 400 mg PO DIRECTED PRN (Reason: Pain) RF: 0 Discharge Orders: Discharge Order (Routine); Ordered 12/11/21 Ordered By: Candelario Logan Admission Data Admit Date/Time: 12/07/21 18:13 Attending Provider: Candelario Logan Admit Provider: Angle Del Valle I. Primary Care Provider: Trev Navarro Other Providers: Angle Del Valle I.
== END 2021-12-11 13:30 | disposition home or self-care (01) | DRG 193 ==
LOC: ED 14:53 → SUATTDRO 18:13 → 2N 18:13